=== PATIENT | male | born 1970 | race Caucasian/White ===

== ENCOUNTER 2022-05-29 10:58 | Inpatient (IN) | payer SELFPAY ==
[2022-05-29] MEDS ORDERED: METOPROLOL TAR 25 MG TAB ONE (11:19)
[2022-05-29] MEDS ORDERED: ASPIRIN 81 MG CHEWABLE TABLET ONE (11:19)
[2022-05-29] MEDS ORDERED: METOPROLOL TARTRATE 5 MG/5 ML INJ IV ONE (11:19)
[2022-05-29 11:27] LABS: Absolute Lymphocytes (CBC) 1.3 K/uL (0.7-4.9); Hematocrit 48.9 % (39.6-49.0); Lymphocytes % 12.6 % (15.3-44.8); MCV 91.6 fL (80-100); MPV 10.4 fL (7.6-11.3); RBC Red Blood Cell Count 5.34 M/uL (4.33-5.43)
[2022-05-29 11:32] LABS: Protime INR 1.1
[2022-05-29 12:01] LABS: Albumin 4.1 g/dL (3.4-5.0); Bilirubin Direct 0.2 mg/dL (0-0.2); Bilirubin Total 0.7 mg/dL (0.2-1.0); Magnesium 1.9 mg/dL (1.6-2.4); Potassium 4.1 mmol/L (3.5-5.1); Protein, Total 7.6 g/dL (6.4-8.2)
[2022-05-29 12:07] LABS: Troponin High Sensitivity 7538.1 pg/mL (<58.9)
--- NOTE | 2022-05-29 12:36 | RAD REPORT ---
EXAM DESCRIPTION: RAD - Chest Single View - 05/29/2022 12:18 pm CLINICAL HISTORY: CHEST PAIN Chest pain. COMPARISON: No comparisons FINDINGS: Portable technique limits examination quality. Mild interstitial pulmonary edema suspected. The heart is mildly enlarged in size. No displaced fract ures. IMPRESSION: Mild CHF.
--- NOTE | 2022-05-29 12:57 | ER ---
Nurse's Notes [facility] Name: Nghia Meredith Jr Age: 51 yrs Sex: Male : 1970 Arrival Date: 05/29/2022 Time: 11:00 Bed 4 Private MD: Diagnosis: Subsequent non-ST elevation (NSTEMI) myocardial infarction;Paroxysmal atrial fibrillation-with RVR Presentation: 05/29 11:07 Chief complaint: Patient states: last Sunday started having chest pain and difficulty iw breathing, legs get tired , pain in left side of chest, left shoulder and up neck. Coronavirus screen: At this time, the client does not indicate any symptoms associated with coronavirus-19. Ebola Screen: Patient negative for fever greater than or equal to 101.5 degrees Fahrenheit, and additional compatible Ebola Virus Disease symptoms Patient denies exposure to infectious person. Patient denies travel to an Ebola-affected area in the 21 days before illness onset. No symptoms or risks identified at this time. Onset of symptoms was May 22, 2022. 11:07 Method Of Arrival: Wheelchair iw 11:07 Acuity: LISETTE 2 iw 11:27 Initial Sepsis Screen: Does the patient meet any 2 criteria? HR > 90 bpm. No. Patient's ll1 initial sepsis screen is negative. Does the patient have a suspected source of infection? No. Patient's initial sepsis screen is negative. Risk Assessment: Do you want to hurt yourself or someone else? Patient reports no desire to harm self or others. Historical: - Allergies: 11:14 No Known Allergies; iw - Home Meds: 11:14 BP med [Active]; iw - PMHx: 11:14 Hypertensive disorder; iw - PSHx: 11:14 cardiac stents; iw - Immunization history:: Adult Immunizations not up to date, Client reports having NOT received the Covid vaccine. - Social history:: Smoking status: Patient/guardian denies using tobacco, the patient reports quitting approximately 10 years ago. Screenin:25 [facility] ED Fall Risk Assessment (Adult) Score/Fall Risk Level 0 - 2 = Low Risk ll1 Oriented to surroundings, Maintained a safe environment, Educated pt \T\ family on fall prevention, incl call for assistance when getting out of bed, Hourly rounding (assess needs \T\ fall precautionary measures) done. Abuse screen: Denies threats or abuse. Nutritional screening: No deficits noted. Tuberculosis screening: No symptoms or risk factors identified. Assessment: 11:10 General: Appears uncomfortable, Behavior is calm, cooperative, appropriate for age. ll1 Pain: Complains of pain in chest. Cardiovascular: Reports chest pain, fatigue, palpitations, shortness of breath, Heart tones S1 S2. Respiratory: Reports shortness of breath at rest. GI: Reports. 11:27 Pain: Pain does not radiate. Pain began 6 days. ll1 11:37 Reassessment: Patient and/or family updated on plan of care and expected duration. Pain db level reassessed. PATIENT STATES CHEST PAIN X 1 WEEK THAT WAS WORSE TODAY. LEFT CHEST PAIN. NO HX OF AFIB HR IN 160'S WITH THE CHEST PAIN AND PALPITATIONS. Neuro: Level of Consciousness is awake, alert, obeys commands, Oriented to person, place, time, situation, Appropriate for age Speech is normal. Respiratory: Airway is patent Respiratory effort is even, unlabored, Respiratory pattern is regular, symmetrical. 12:34 Reassessment: No changes from previously documented assessment. Patient and/or family ll1 updated on plan of care and expected duration. Pain level reassessed. Patient is alert, oriented x 3, equal unlabored respirations, skin warm/dry/pink. Patient states feeling better. 13:30 Reassessment: Patient appears in no apparent distress at this time. Patient and/or db family updated on plan of care and expected duration. Pain level reassessed. Patient is alert, oriented x 3, equal unlabored respirations, skin warm/dry/pink. 14:01 Reassessment: Patient appears in no apparent distress at this time. No changes from db previously documented assessment. Patient and/or family updated on plan of care and expected duration. Pain level reassessed. Patient is alert, oriented x 3, equal unlabored respirations, skin warm/dry/pink. 14:30 Reassessment: Patient appears in no apparent distress at this time. No changes from db previously documented assessment. Patient and/or family updated on plan of care and expected duration. Pain level reassessed. Patient is alert, oriented x 3, equal unlabored respirations, skin warm/dry/pink. USING PHONE. HEPARIN STARTED. RN AT BEDSIDE FOR ADDITIONAL IV ACCESS. 15:30 Reassessment: No changes from previously documented assessment. Patient and/or family ll1 updated on plan of care and expected duration. Pain level reassessed. Patient is alert, oriented x 3, equal unlabored respirations, skin warm/dry/pink. 16:15 Reassessment: No changes from previously documented assessment. Patient and/or family ll1 updated on plan of care and expected duration. Pain level reassessed. Patient is alert, oriented x 3, equal unlabored respirations, skin warm/dry/pink. 17:15 Reassessment: No changes from previously documented assessment. Patient and/or family ll1 updated on plan of care and expected duration. Pain level reassessed. Patient is alert, oriented x 3, equal unlabored respirations, skin warm/dry/pink. 17:48 Reassessment: No changes from previously documented assessment. Patient and/or family ll1 updated on plan of care and expected duration. Pain level reassessed. Patient is alert, oriented x 3, equal unlabored respirations, skin warm/dry/pink. Patient states feeling better. 18:41 Reassessment: No changes from previously documented assessment. Patient and/or family ll1 updated on plan of care and expected duration. Pain level reassessed. Patient is alert, oriented x 3, equal unlabored respirations, skin warm/dry/pink. Patient states feeling better. Patient states symptoms have improved. Vital Signs: 11:08 BP 123 / 80; Pulse 145; Resp 18; Temp 96.3; Pulse Ox 100% on R/A; Weight 113.4 kg; iw Height 5 ft. 10 in. (177.80 cm); Pain 10/10; 11:20 Pain 10/10; db 11:26 BP 123 / 99; Pulse 126; Temp 97.9(TE); ll1 11:29 BP 130 / 108; Pulse 111; Resp 15; ll1 11:30 BP 121 / 79; Pulse 113; Resp 18; Pulse Ox 98% ; Pain 4/10; db 12:07 BP 120 / 95; Pulse 102; Resp 18; ll1 12:34 BP 103 / 65; Pulse 92; Resp 16; ll1 13:55 BP 126 / 94; Pulse 100; Resp 24; db 14:32 BP 123 / 100; Pulse 88; Resp 18; ll1 16:00 BP 120 / 80; Pulse 86; Resp 17; Pulse Ox 96% on R/A; Pain 0/10; ll1 17:52 BP 108 / 73; Pulse 88; Resp 17; ll1 11:08 Body Mass Index 35.87 (113.40 kg, 177.80 cm) iw ED Course: 11:00 Patient arrived in ED. rg4 11:08 Triage completed. iw 11:10 Tracee Busch [facility]NP-C [facility]. snw 11:10 Chris Kovacs MD is Attending Physician. snw 11:15 Arm band placed on. iw 11:15 Initial lab(s) drawn, by me, sent to lab. ll1 11:20 Missed attempt(s): 22 gauge in left antecubital area. Bleeding controlled, band aid ll1 applied, catheter tip intact. 11:22 Inserted saline lock: 20 gauge in right antecubital area, using aseptic technique. ll1 Blood collected. 11:25 Xochitl Neff, PADDY is Primary Nurse. ll1 11:26 Patient has correct armband on for positive identification. Bed in low position. Call ll1 light in reach. Side rails up X2. Client placed on continuous cardiac and pulse oximetry monitoring. NIBP monitoring applied. business technology analyst on. 11:26 No provider procedures requiring assistance completed. Patient maintains SpO2 ll1 saturation greater than 95% on room air. 12:20 XRAY Chest (1 view) In Process Unspecified. EDMS 12:56 Jules Duckworth MD is Hospitalizing Provider. snw 14:31 Inserted saline lock: 22 gauge in right hand, using aseptic technique. ll1 14:48 Troponin High Sensitivity Sent. ll1 17:50 Patient admitted, IV remains in place. ll1 Administered Medications: 11:20 Drug: Aspirin Chewable Tablet 324 mg Route: PO; db 17:56 Follow up: Response: No adverse reaction ll1 11:20 Drug: Metoprolol 5 mg Route: IVP; Site: right antecubital; db 11:20 Drug: Metoprolol 12.5 mg Route: PO; db 14:48 Follow up: Response: No adverse reaction ll1 11:25 Drug: Metoprolol 5 mg Route: IVP; Site: right antecubital; db 11:30 Drug: Metoprolol 5 mg Route: IVP; Site: right antecubital; db 14:48 Follow up: Response: No adverse reaction ll1 14:27 Drug: Heparin (DE Drip) 12 units/kg/hr - (HEParin 50025 units, D5W 500 ml) ll1 {Co-Signature: db (Becki Lopes RN).} Route: IV; Rate: calculated rate; Site: right antecubital; 16:45 Follow up: IV Status: Infusion continued upon admission ll1 14:48 Drug: amiodarone 150 mg Volume: 100 ml; Route: IVPB; Infused Over: 10 mins; Site: right ll1 hand; 14:59 Follow up: Response: No adverse reaction; IV Status: Completed infusion; IV Intake: ll1 100ml 14:58 Drug: amiodarone 900 mg, D5W 500 ml Route: IVPB; Rate: 1 mg/min; Site: right hand; ll1 16:45 Follow up: Response: No adverse reaction; IV Status: Infusion continued upon admission ll1 Medication: 11:26 VIS not applicable for this client. ll1 Intake: 14:59 IV: 100ml; Total: 100ml. 1 Outcome: 12:56 Decision to Hospitalize by Provider. snw 17:50 Admitted to Tele accompanied by tech, via stretcher, room 431, with chart, Report ll1 called to PADDY Ríos 17:50 Condition: stable 17:50 Instructed on the need for admit. 18:42 Patient left the ED. 1 Signatures: Dispatcher [employer] Tracee Jeffries, CODING COMPLIANCE AUDITOR-C CODING COMPLIANCE AUDITOR-Csnw Avril Bowman RN RN iw Garcia, Rubi rg4 Xochitl Neff RN RN 1 Becki Lopes RN RN db Becki Lopes RN db Corrections: (The following items were deleted from the chart) 11:15 11:08 BP 123 / 80; Pulse 145bpm; Resp 18bpm; Pulse Ox 100% RA; Temp 96.3F; iw 11:28 11:26 BP 123 / 99; Pulse 126bpm; ll1 ll1
--- NOTE | 2022-05-29 12:57 | EDPHYS ---
Physician Documentation [facility] Name: Nghia Meredith Jr Age: 51 yrs Sex: Male : 1970 Arrival Date: 05/29/2022 Time: 11:00 Bed 4 Private MD: ED Physician Chris Kovacs HPI: 05/29 11:33 This 51 yrs old Male presents to ER via Wheelchair with complaints of Chest Pain, snw Weakness, Arm Pain. 11:33 The patient or guardian reports chest pain that is located primarily in the anterior snw chest wall, left. Onset: 1 week(s) ago, and became persistent 1 weeks ago. Onset: The symptoms/episode began/occurred acutely. The pain radiates to the left arm. Associated signs and symptoms: Pertinent positives:. 11:34 Associated signs and symptoms: Pertinent positives: lightheadedness, palpitations, snw shortness of breath. The chest pain is described as a pressure. Duration: The patient or guardian reports multiple episodes, with no pattern. Modifying factors: The symptoms are alleviated by nothing. the symptoms are aggravated by activity. Severity of pain: At its worst the pain was moderate in the emergency department the pain is unchanged. The patient has not experienced similar symptoms in the past. Saw Dr Keen but lost PCP 2nd to insurance change. Historical: - Allergies: 11:14 No Known Allergies; iw - Home Meds: 11:14 BP med [Active]; iw - PMHx: 11:14 Hypertensive disorder; iw - PSHx: 11:14 cardiac stents; iw - Immunization history:: Adult Immunizations not up to date, Client reports having NOT received the Covid vaccine. - Social history:: Smoking status: Patient/guardian denies using tobacco, the patient reports quitting approximately 10 years ago. ROS: 11:39 Eyes: Negative for injury, pain, redness, and discharge, ENT: Negative for injury, snw pain, and discharge, Neck: Negative for injury, pain, and swelling. 11:39 Abdomen/GI: Negative for abdominal pain, nausea, vomiting, diarrhea, and constipation, Back: Negative for injury and pain, : Negative for injury, bleeding, discharge, and swelling, MS/Extremity: Negative for injury and deformity, Skin: Negative for injury, rash, and discoloration. 11:39 Constitutional: Positive for malaise. 11:39 Cardiovascular: Positive for chest pain, of the left clavicle and anterior aspect of left upper chest and left arm, palpitations. 11:39 Respiratory: Positive for dyspnea on exertion, orthopnea, shortness of breath. 11:39 Neuro: Positive for weakness, insomnia. Exam: 11:33 Constitutional: This is a well developed, well nourished patient who is awake, alert, snw and in no acute distress. Head/Face: Normocephalic, atraumatic. Eyes: Pupils equal round and reactive to light, extra-ocular motions intact. Lids and lashes normal. Conjunctiva and sclera are non-icteric and not injected. Cornea within normal limits. Periorbital areas with no swelling, redness, or edema. ENT: Nares patent. No nasal discharge, no septal abnormalities noted. Tympanic membranes are normal and external auditory canals are clear. Oropharynx with no redness, swelling, or masses, exudates, or evidence of obstruction, uvula midline. Mucous membranes moist. Neck: Trachea midline, no thyromegaly or masses palpated, and no cervical lymphadenopathy. Supple, full range of motion without nuchal rigidity, or vertebral point tenderness. No Meningismus. Chest/axilla: Normal chest wall appearance and motion. Nontender with no deformity. No lesions are appreciated. 11:33 Respiratory: Lungs have equal breath sounds bilaterally, clear to auscultation and percussion. No rales, rhonchi or wheezes noted. No increased work of breathing, no retractions or nasal flaring. Abdomen/GI: Soft, non-tender, with normal bowel sounds. No distension or tympany. No guarding or rebound. No evidence of tenderness throughout. Back: No spinal tenderness. No costovertebral tenderness. Full range of motion. Skin: Warm, dry with normal turgor. Normal color with no rashes, no lesions, and no evidence of cellulitis. MS/ Extremity: Pulses equal, no cyanosis. Neurovascular intact. Full, normal range of motion. Neuro: Awake and alert, GCS 15, oriented to person, place, time, and situation. Cranial nerves II-XII grossly intact. Motor strength 5/5 in all extremities. Sensory grossly intact. Cerebellar exam normal. Normal gait. Psych: Awake, alert, with orientation to person, place and time. Behavior, mood, and affect are within normal limits. 11:33 Cardiovascular: Rate: tachycardic, Rhythm: irregularly irregular, Pulses: no pulse deficits are appreciated, Heart sounds: normal, Edema: is not appreciated. Vital Signs: 11:08 BP 123 / 80; Pulse 145; Resp 18; Temp 96.3; Pulse Ox 100% on R/A; Weight 113.4 kg; iw Height 5 ft. 10 in. (177.80 cm); Pain 10/10; 11:20 Pain 10/10; db 11:26 BP 123 / 99; Pulse 126; Temp 97.9(TE); ll1 11:29 BP 130 / 108; Pulse 111; Resp 15; ll1 11:30 BP 121 / 79; Pulse 113; Resp 18; Pulse Ox 98% ; Pain 4/10; db 12:07 BP 120 / 95; Pulse 102; Resp 18; ll1 12:34 BP 103 / 65; Pulse 92; Resp 16; ll1 13:55 BP 126 / 94; Pulse 100; Resp 24; db 14:32 BP 123 / 100; Pulse 88; Resp 18; ll1 16:00 BP 120 / 80; Pulse 86; Resp 17; Pulse Ox 96% on R/A; Pain 0/10; ll1 17:52 BP 108 / 73; Pulse 88; Resp 17; ll1 11:08 Body Mass Index 35.87 (113.40 kg, 177.80 cm) iw MDM: 11:12 Patient medically screened. snw 11:30 Differential diagnosis: abnormal EKG, acute myocardial infarction, acute pericarditis, snw coronary artery disease congestive heart failure unstable angina. 11:37 HEART Score: History: Highly Suspicious (2), ECG: Non specific repolarization snw disturbance / LBTB / PM (1), Age: > 45 and < 65 years (1), Risk Factors: > or = 3 Risk factors for atherosclerotic disease (2), [Hypertension] [Active Smoker] [Obesity]. The patient was given aspirin in the Emergency Department. Data reviewed: vital signs, nurses notes. Data interpreted: Pulse oximetry: is not applicable for this patient encounter. on room air is 100 %. Interpretation: hypoxia. Test interpretation: by ED physician or midlevel provider: ECG. Response to treatment: the patient's symptoms have mildly improved after treatment. 11:50 Consideration of Admission/Observation Patient was admitted/placed on observation. snw called to clear admit with Dr. Dickinson. He was unavailable presently as he was in a cath. Request placed to hospitalist group. 11:50 Management of patient was discussed with the following: Hospitalist: Andrew Patiño ORACLE MANUFACTURING CONSULTANT for snw Dr. Duckworth. 12:55 Care significantly affected by the following Social Determinants of Health: Poor access snw to healthcare and/or lack of insurance, stopped HTN meds when he lost his job over 1 yr ago, delayed coming to ED 2nd to cost. 14:30 I considered the following discharge prescriptions or medication management in the [facility] emergency department dicussed preferred anti-coag and antiarrhythmic for pt with Dr. Duckworth, Fermín, and Alok. Will go with ASA, heparin, metoprolol, and amiodarone. 16:40 ED course: Dr. Dickinson at bedside discussing cardiac cath tomorrow. [facility] 05/29 11:11 Order name: Basic Metabolic Panel; Complete Time: 12:15 [facility] 05/29 11:11 Order name: CBC with Diff; Complete Time: 11:30 [facility] 05/29 11:11 Order name: LFT's; Complete Time: 12:15 [facility] 05/29 11:11 Order name: Magnesium; Complete Time: 12:15 [facility] 05/29 11:11 Order name: NT PRO-BNP; Complete Time: 12:15 [facility] 05/29 11:11 Order name: PT-INR; Complete Time: 11:32 [facility] 05/29 11:11 Order name: Troponin HS; Complete Time: 12:15 [facility] 05/29 11:30 Order name: TSH; Complete Time: 12:00 [facility] 05/29 13:32 Order name: Troponin High Sensitivity; Complete Time: 17:05 [facility] 05/29 14:01 Order name: SARS RAPID; Complete Time: 14:57 [facility] 05/29 16:25 Order name: Lipid Profile; Complete Time: 16:35 [facility] 05/29 16:40 Order name: Phosphorus; Complete Time: 16:49 [facility] 05/29 16:40 Order name: Creatine Phosphokinase; Complete Time: 16:49 [facility] 05/29 16:40 Order name: T4 Free; Complete Time: 16:49 [facility] 05/29 11:11 Order name: XRAY Chest (1 view); Complete Time: 12:39 snw 05/29 11:11 Order name: EKG; Complete Time: 11:12 snw 05/29 11:11 Order name: Cardiac monitoring; Complete Time: 11:20 snw 05/29 11:11 Order name: EKG - Nurse/Tech; Complete Time: 11:20 snw 05/29 11:11 Order name: IV Saline Lock; Complete Time: 11:20 snw 05/29 11:11 Order name: Labs collected and sent; Complete Time: 11:20 snw 05/29 13:09 Order name: EKG; Complete Time: 13:10 snw 05/29 16:40 Order name: Magnesium; Complete Time: 16:49 [facility] 05/29 16:40 Order name: Thyroid Stimulating Hormone; Complete Time: 16:49 [facility] 05/29 17:56 Order name: Hemoglobin A1c; Complete Time: 17:58 ED[facility] 05/29 11:11 Order name: O2 Per Protocol; Complete Time: 11:20 snw 05/29 11:11 Order name: O2 Sat Monitoring; Complete Time: 11:20 snw 05/29 13:09 Order name: EKG - Nurse/Tech; Complete Time: 13:33 snw 05/29 15:14 Order name: Labs - recollect needed: recollect tropin; Complete Time: 16:36 bd EC:22 Rate is 161 beats/min. Rhythm is irregularly irregular. QRS interval is prolonged. snw Clinical impression: Atrial Fibrillation and with RVR. Administered Medications: 11:20 Drug: Aspirin Chewable Tablet 324 mg Route: PO; db 17:56 Follow up: Response: No adverse reaction ll1 11:20 Drug: Metoprolol 5 mg Route: IVP; Site: right antecubital; db 11:20 Drug: Metoprolol 12.5 mg Route: PO; db 14:48 Follow up: Response: No adverse reaction ll1 11:25 Drug: Metoprolol 5 mg Route: IVP; Site: right antecubital; db 11:30 Drug: Metoprolol 5 mg Route: IVP; Site: right antecubital; db 14:48 Follow up: Response: No adverse reaction ll1 14:27 Drug: Heparin ([place] Drip) 12 units/kg/hr - (HEParin 81482 units, D5W 500 ml) ll1 {Co-Signature: db (Becki Lopes RN).} Route: IV; Rate: calculated rate; Site: right antecubital; 16:45 Follow up: IV Status: Infusion continued upon admission ll1 14:48 Drug: amiodarone 150 mg Volume: 100 ml; Route: IVPB; Infused Over: 10 mins; Site: right ll1 hand; 14:59 Follow up: Response: No adverse reaction; IV Status: Completed infusion; IV Intake: ll1 100ml 14:58 Drug: amiodarone 900 mg, D5W 500 ml Route: IVPB; Rate: 1 mg/min; Site: right hand; ll1 16:45 Follow up: Response: No adverse reaction; IV Status: Infusion continued upon admission ll1 Disposition Summary: 05/29/22 12:56 Hospitalization Ordered Hospitalization Status: Inpatient Admission snw Provider: Jules Duckworth Location: Telemetry/MedSurg (Inpatient) snw Condition: Stable snw Problem: new snw Symptoms: have improved snw Bed/Room Type: Standard snw Room Assignment: 431(05/29/22 17:38) bd Diagnosis - Subsequent non-ST elevation (NSTEMI) myocardial infarction snw - Paroxysmal atrial fibrillation - with RVR snw Forms: - Medication Reconciliation Form snw - SBAR form snw Addendum: 06/02/2022 13:24 Co-signature as Attending Physician, Chris Kovacs MD I agree with the assessment and c bolivar plan of care. Signatures: Dispatcher [employer] EDMS Alka Ferrell Corey, MD MD cha Waters, Shelly, FISH HATCHERY MANAGER-C FISH HATCHERY MANAGER-Csnw Avril Bowman RN RN Xochitl Neff RN RN 1 Becki Lopes RN RN db Danielle Benton RN db Corrections: (The following items were deleted from the chart) 05/29 17:38 12:56 snw bd 19:13 11:37 Counseling: I had a detailed discussion with the patient and/or guardian snw regarding: the historical points, exam findings, and any diagnostic results supporting the discharge/admit diagnosis, the presence of at least one elevated blood pressure reading (>120/80) during this emergency department visit, lab results, radiology results, the need for further work-up and treatment in the hospital, snw
[2022-05-29] MEDS ORDERED: HYDROCODONE/APAP 5/325 MG TAB PO PRN (14:19)
[2022-05-29] MEDS ORDERED: HEPARIN/D5W 25,000 UNIT/500 ML BAG IV ONE (14:19)
[2022-05-29] MEDS ORDERED: ACETAMINOPHEN 325 MG TABLET PO PRN (14:19)
[2022-05-29] MEDS ORDERED: ONDANSETRON 4 MG/2 ML VIAL IV PRN (14:23)
--- NOTE | 2022-05-29 14:31 | P.HP ---
Certification for Inpatient Patient admitted to: Inpatient With expected LOS: >2 Midnights Patient will require the following post-hospital care: None Practitioner: I am a practitioner with admitting privileges, knowledge of patient current condition, hospital course, and medical plan of care. Services: Services provided to patient in accordance with Admission requirements found in Title 42 Section 412.3 of the Code of Federal Regulations Patient History Date of Service: 05/29/22 Reason for admission: Chest pain, SOB History of Present Illness: Patient is a 51-year-old male with a past medical history significant for hypertension, CAD, obesity who presents with complaint of chest pain located in the substernal chest area\left chest wall area that has been ongoing intermittently for the past 1 week. Patient indicated that chest pain radiates to his neck, left shoulder and left arm. Patient rated chest pain as 10/10 in severity and described pain as sharp in quality. Patient reported associated signs and symptoms of shortness of breath, headache, dizziness, diaphoresis, palpitations and generalized malaise. Patient reported that he has had previous episode of chest pain but it normally self resolves after some time. Patient denies any other signs and symptoms. Symptoms are aggravated or relieved by nothing. Patient decided to present to the hospital due to worsening symptoms. Allergies No Known Allergies Allergy (Unverified 05/29/22 14:28) - Past Medical/Surgical History -: CAD with stent -: HTN -: Obesity Past Surgical History: Reviewed- Non-Contributory - Family History Family History: Reviewed- Non-Contributory - Social History Smoking Status: Former smoker Alcohol use: Yes CD- Drugs: No Caffeine use: Yes Place of Residence: Home Review of Systems General: Sweats, Malaise Eyes: Unremarkable ENT: Unremarkable Respiratory: Shortness of Breath Cardiovascular: Chest Pain, Palpitations Gastrointestinal: Unremarkable Genitourinary: Unremarkable Musculoskeletal: Neck Pain, Shoulder Pain, Arm Pain Integumentary: Unremarkable Neurological: Other (Headache, dizziness), Unremarkable Lymphatics: Unremarkable Physical Examination - Physical Exam General: Alert, In no apparent distress, Oriented x3, Cooperative HEENT: Atraumatic, PERRLA, Mucous membr. moist/pink, EOMI, Sclerae nonicteric Neck: Supple, 2+ carotid pulse no bruit, No LAD, Without JVD or thyroid abnormality Respiratory: Diminished Cardiovascular: No edema, No murmurs, Irregular heart rate/rhythm Capillary refill: <2 Seconds Gastrointestinal: Normal bowel sounds, Soft and benign, No tenderness Musculoskeletal: No clubbing, No swelling, No contractures Integumentary: No rashes, No significant lesion Neurological: Normal speech, Normal tone, Normal affect Lymphatics: No axilla or inguinal lymphadenopathy - Studies Laboratory Data (last 24 hrs) 05/29/22 11:15: PT 12.1, INR 1.10 05/29/22 11:15: WBC 10.40, Hgb 17.0, Hct 48.9, Plt Count 220 05/29/22 11:15: Sodium 137, Potassium 4.1, BUN 21 H, Creatinine 1.29, Glucose 120 H, Magnesium 1.9, Total Bilirubin 0.7, AST 23, ALT 43, Alkaline Phosphatase 84 Assessment and Plan - Plan --NSTEMI. Will trend serial troponins--currently elevated. Patient started on heparin drip. Echocardiogram pending to assess LV\valvular function and wall motion. Cardiology consulted. Patient placed on aspirin, low-dose beta-duane and statin. Beck Operator plans a left heart cath in a.m. Will await further recommendation from carbon sequestration plant engineer. --A. fib with RVR. Patient given amiodarone and metoprolol IV in the ER. Rate trending down but still uncontrolled. Telemetry to monitor for any malignant arrhythmia. Continue heparin drip. Further management per carbon sequestration plant engineer. --Hyperlipidemia. Continue statin. --Hypertension. Stable. We will manage BP with labetalol as needed. --Elevated BNP--2333. Patient given a one-time dose of Lasix. Echocardiogram pending. Further management per carbon sequestration plant engineer. --History of CAD with stents. Continue aspirin, statin and heparin drip. --Obesity. Likely secondary to excess calories intake. Patient counseled on weight reduction, diet and exercise therapy. --CKD 2. Baseline functions unknown. We will continue to monitor renal functions. --Headache. Tylenol as needed. -- DVT prophylaxis with heparin drip. Discharge Plan: Home Plan to discharge in: Greater than 2 days - Advance Directives Does patient have a Living Will: No Does patient have a Durable POA for Healthcare: No - Code Status/Comfort Care Code Status Assessed: Yes Physician Review: Patient Assessed, Agree with Above Assessment and Plan Critical Care: No
[2022-05-29] MEDS ORDERED: D5W 100 ML IV ONE (14:38)
[2022-05-29] MEDS ORDERED: AMIODARONE HCL 150 MG/3 ML INJ IV ONE (14:38)
[2022-05-29] MEDS ORDERED: AMIODARONE IN DEXTROSE,ISO-OSM 360 MG/200 ML BAG IV ONE (14:38)
[2022-05-29 14:56] LABS: SARS-CoV-2 Antigen Rapid Res Negative (Negative)
[2022-05-29] MEDS ORDERED: HEPARIN/D5W 25,000 UNIT/500 ML BAG IV SCH (15:00)
[2022-05-29 16:22] VITALS: BMI 35.9
[2022-05-29 16:40] LABS: Magnesium 1.9 mg/dL (1.6-2.4); Phosphorus 3.4 mg/dL (2.5-4.9); Thyroid Stimulating Hormone 0.689 uIU/mL (0.358-3.740)
[2022-05-29] MEDS ORDERED: LABETALOL 20 MG/4ML SYRINGE IV PRN (17:29)
[2022-05-29] MEDS ORDERED: FUROSEMIDE 20 MG/ 2ML VIAL IV ONE (18:00)
--- NOTE | 2022-05-29 20:45 | CON ---
Date of Consultation: 05/29/2022 Reason For Consultation: Elevated troponin and atrial fibrillation with rapid ventricular response. History Of Present Illness: This 51-year-old male with known history of coronary artery disease stat us post stent placement in the past comes in with palpitations, chest pain, and shortness of breath. His symptoms have been going on for a week and the chest pain was severe, 10/10. When he came in, jeff azul was in atrial fibrillation with rapid ventricular response. After slowing down his heart rate, his chest pain has improved significantly and he feels better now and chest pain free. Past Medical History: Coronary artery disease and hypertension. Medications: Refer to reconciliation sheet for detailed list. Allergies: NO KNOWN DRUG ALLERGIES. Family History: No premature coronary artery disease or cancer. Social History: He is an ex-smoker. Does not drink or use any drugs. Review of Systems: All systems reviewed and they were negative except for mentioned in HPI. Physical Examination: Vital Signs: Reviewed. Head And Neck: Pupils are equal and reactive to light. Intact eye movements. No JVD. No cervical lymphadenopathy. Neck is supple. Thyroid is not enlarged. Lungs: Clear to auscultation bilaterally. No rhonchi, wheezing, or crackles. No accessory muscle u se. Heart: Irregularly irregular. No extra sounds. Abdomen: Soft, nontender. Bowel sounds positive. No organomegaly. No masses or hernia. No rigidi ty or rebound. Extremities: No edema, clubbing, or cyanosis. Intact pulses. Skin: No rash. Neurologic: Alert, awake, and oriented x3. No acute focal deficits appreciated. Investigations: Troponin first one was 7538, second one was 7791. NT-proBNP is 2333. Assessment/recommendation: 1.Atrial fibrillation with rapid ventricular response. Started on IV amiodarone drip, load with 150 mg over 10 minutes and then 1 mg/minute for 6 hours and then 0.5 mg/minute for 16 hours. Continue m etoprolol 12.5 mg twice a day by mouth. 2.Non-ST elevation myocardial infarction. Load with aspirin and IV heparin. The patient is chest p ain free now. We will keep him n.p.o. past midnight for coronary angiogram in the morning and contin ue Lipitor. SR/MODL Voice ID: [id number] Report ID: [id number]
[2022-05-29] MEDS: ATORVASTATIN 40 MG TAB PO SCH (21:34)
[2022-05-29] MEDS: METOPROLOL TAR 25 MG TAB PO SCH (21:35)
[2022-05-30 04:14] LABS: Absolute Lymphocytes (CBC) 1.8 K/uL (0.7-4.9); Lymphocytes % 19.9 % (15.3-44.8); MCV 91.3 fL (80-100); MPV 10.6 fL (7.6-11.3); RBC Red Blood Cell Count 5.15 M/uL (4.33-5.43)
[2022-05-30 04:25] LABS: Potassium 3.4 mmol/L (3.5-5.1)
[2022-05-30] MEDS: METOPROLOL TAR 25 MG TAB PO SCH ×2 (05:10→18:00)
[2022-05-30] MEDS: ASPIRIN 81 MG CHEWABLE TABLET PO SCH (07:47)
[2022-05-30] MEDS: FUROSEMIDE 20 MG/ 2ML VIAL IV SCH ×2 (08:04→21:26)
[2022-05-30] MEDS ORDERED: POTASSIUM CL SA 10 MEQ TAB PO ONE (09:00)
[2022-05-30] MEDS ORDERED: LIDOCAINE 1% MPF 30 ML VIAL ONE (11:07)
[2022-05-30] MEDS ORDERED: HEPA 1000U/500MLS 2,000 UNIT/1,000 ML BAG IV ONE (11:07)
[2022-05-30] MEDS ORDERED: TICAGRELOR 90 MG TABLET PO ONE (14:01)
[2022-05-30] MEDS ORDERED: CLOPIDOGREL 75 MG TABLET ONE (14:01)
[2022-05-30] MEDS ORDERED: ASPIRIN 325 MG TAB ONE (14:01)
[2022-05-30] MEDS ORDERED: HEPARIN 10,000 UNIT/10 ML VIAL IV ONE ×2 (14:01→15:14)
[2022-05-30] MEDS ORDERED: HEPARIN 5000 UNIT/ML 1 ML VIAL ONE (14:01)
[2022-05-30] MEDS ORDERED: VERAPAMIL HCL 10 MG/4 ML VIAL IV ONE (14:01)
[2022-05-30] MEDS ORDERED: ATROPINE SULF 1 MG/10 ML SYR IV ONE (14:02)
[2022-05-30] MEDS ORDERED: FENTANYL CITR 100 MCG/2 ML ONE (14:03)
[2022-05-30] MEDS ORDERED: MIDAZOLAM HCL 2 MG/2 ML INJ ONE (14:03)
[2022-05-30] MEDS ORDERED: NA CHLORIDE 0.9% 500 ML ONE (14:17)
--- NOTE | 2022-05-30 14:24 | EKG ---
Test Date: 2022-05-29 Test Time: 13:29:47 Maintenance And Operations Supervisor: ELISHA MEASUREMENT RESULTS: Intervals: Rate: 98 MS: QRSD: 128 QT: 344 QTc: 439 Manderson: P: MS: QRS: 60 T: 208 INTERPRETIVE STATEMENTS: Atrial fibrillation Nonspecific intraventricular block T wave abnormality, consider inferolateral ischemia Abnormal ECG Compared to ECG 05/29/2022 11:23:37 T-wave abnormality now present ST (T wave) deviation no longer present Possible ischemia still present Electronically Signed On 05-30-22 14:22:23 SALES AND RETAIL MANAGEMENT RECRUITER by Marco A Dickinson
--- NOTE | 2022-05-30 14:25 | EKG ---
Test Date: 2022-05-29 Test Time: 11:23:37 Machining Manager: ZOILAW MEASUREMENT RESULTS: Intervals: Rate: 141 DC: QRSD: 114 QT: 332 QTc: 508 Toponas: P: DC: QRS: 33 T: 167 INTERPRETIVE STATEMENTS: Atrial fibrillation with rapid ventricular response ST & T wave abnormality, consider inferolateral ischemia Abnormal ECG No previous ECG available for comparison Electronically Signed On 05-30-22 14:22:50 DRIVING SCHOOL INSTRUCTOR by Marco A Dickinson
[2022-05-30] MEDS ORDERED: REGADENOSON 0.4 MG/5 ML SYR IV ONE (15:09)
[2022-05-30] MEDS ORDERED: AMIODARONE HCL 150 MG in D5W 100 ML IV STA (15:31)
[2022-05-30] MEDS ORDERED: AMIODARONE HCL 900 MG in Dextrose 5%-Water 482 ML IV SCH (16:00)
--- NOTE | 2022-05-30 16:19 | PN ---
Date of Progress Note: 05/30/2022 Subjective: Seen by bedside. Doing clinically well. No further chest pain. Review of Systems: No chest pain, shortness of breath, orthopnea, cough, nausea, vomiting, diarrhea. All other systems reviewed and they were negative. Physical Examination: Vital Signs: Reviewed. Head and Neck: Pupils are equal, reactive to light. Intact eye movements. No JVD. No cervical lym phadenopathy. Neck is supple. Thyroid is not enlarged. Lungs: Clear to auscultation bilaterally. No rhonchi, wheezing, or crackles. No accessory muscle u se. Heart: Regular rate and rhythm. No extra sounds. Abdomen: Soft, nontender. Bowel sounds positive. No organomegaly. No masses or hernia. No rigidi ty or rebound. Extremities: No clubbing or cyanosis. Intact pulses. Skin: No rash. Neurologic: Alert, awake, oriented x3. No acute focal deficits appreciated. Investigations: BUN 27, creatinine 1.2. Troponin 8722. Assessment And Recommendations: 1.Non-ST elevation myocardial infarction. The patient is n.p.o., plan for coronary angiogram today and percutaneous coronary intervention as needed. 2.Acute heart failure. Continue Lasix. 3.Atrial fibrillation. Continue amiodarone load, then switch him to oral, and increase metoprolol to 25 mg twice a day and we will start him on anticoagulation post hear t cath. SR/MODL Voice ID: [id number] Report ID: [id number]
--- NOTE | 2022-05-30 16:37 | OP ---
Surgeon: BHARATH HOLCOMB Procedures Performed: 1.Selective coronary angiogram. 2.Left heart catheterization. 3.PCI of severe mid left circumflex 99% stenosis, which is a culprit for the ID. I used 2.5 x 12 mm Synergy drug-eluting stent. Access: Right radial artery 6-Paraguayan closed with TR band. Complications: None. Bleeding: Less than 10 mL. Anesthesia: Total sedation time was 45 minutes. Used fentanyl and Versed. Description Of Procedure: After risks, benefits, and alternatives were explained, the patient agreed to proceed and signed informed consent. The patient was brought into the cardiac catheterization la boratory, prepped and draped in the usual sterile fashion. Then, I accessed right radial artery usin g pediatric micropuncture kit, placed 6-Par[place]ayan Slender sheath, and then took a 5-[place]ayan [place] 4.0 cat heter into the aortic root over a J-wire, engaged left main and right coronary artery, took standard views and then catheter was pushed over the wire into the LV, measured the LVEDP and pullback did not record any gradient. Then, I exchanged for a 6-[place] EBU3.5 guide, engaged the left main, gave sys temic heparin to assure ACT level above 250 and gave 600 mg of Plavix. The patient already received aspirin today. Then, I took a short Run-Through wire into the left circumflex passing the area of st enosis and the lesion was pre-dilated and expanded very well. Then, I used 2.5 x 12 mm Synergy drug- eluting stent with excellent angiographic results. Then, I removed the wire and the guide and sheath , placed TR band with good hemostasis. Findings: 1.Left main; large and normal. 2.LAD; large vessel with patent mid LAD stent with very mild ISR and diagonal branches have luminal irregularities. 3.Left circumflex; large and dominant and in the midportion, there is 99% stenosis, which is a culpr it for ID, status post successful PCI as above. Then, there are some luminal irregularities and diff use 20% to 30% stenosis and supplies the inferior wall, and then the OM1 branch has proximal 30% sten osis and also supplies the inferior wall as well. 4.RCA; very small, non-dominant and has proximal 80% stenosis, but it is about 1 to 1.5 mm vessel. 5.Elevated LVEDP between 15 and 20 mmHg. Conclusion: 1.Severe mid left circumflex stenosis, which is the culprit of the ID, status post successful PCI as above. 2.Patent mid LAD stent. 3.Mild coronary artery disease elsewhere with the exception of the RCA; however, it is very small ve ssel, nondominant, so it was left to medical management. 4.Elevated LVEDP. Recommendations: 1.Aspirin, Plavix, and statin. 2.Diuresis. SR/MODL Voice ID: [id number] Report ID: [id number]
--- NOTE | 2022-05-30 17:01 | P.PN ---
Subjective Date of Service: 05/30/22 Chief Complaint: Chest pain, SOB Patient has no complaint. Denies any chest pain. Physical Examination - Vital Signs Temperature: 98 F Blood Pressure: 141/98 Pulse: 109 Respirations: 15 Pulse Ox (%): 97 Assessment And Plan - Current Problems (Diagnosis) (1) NSTEMI (non-ST elevated myocardial infarction) Current Visit: Yes Status: Acute (2) Chest pain Current Visit: Yes Status: Acute (3) Atrial fibrillation with RVR Current Visit: Yes Status: Acute (4) Hyperlipidemia Current Visit: Yes Status: Acute (5) Hypertension Current Visit: Yes Status: Acute (6) History of coronary artery disease Current Visit: Yes Status: Acute - Plan Physical Exam General: Alert, In no apparent distress, Oriented x3, Neck: Supple, no elevated JVD. Respiratory: Diminished, clear to auscultation bilaterally Cardiovascular: No edema, No murmurs, Irregular heart rate/rhythm Gastrointestinal: Normal bowel sounds, Soft and benign, No tenderness Musculoskeletal: No swelling. Integumentary: No rashes Neurological: Normal speech, no focal motor deficit. Plan: Patient seen by cardiology. Dr. Dickinson input appreciated Status post cardiac catheterization. Patient noted to have LCA occlusion which was stented. Aspirin, Plavix, statin, beta-duane. Continue amiodarone drip per cardiology. He is also on heparin drip. Will need to transition to Eliquis. Cardiology to follow.
[2022-05-30] MEDS: ATORVASTATIN 40 MG TAB PO SCH (21:26)
[2022-05-31 04:05] LABS: Potassium 3.4 mmol/L (3.5-5.1)
[2022-05-31] MEDS ORDERED: POTASSIUM 25 MEQ EFFERV TAB PO ONE (04:55)
[2022-05-31] MEDS: METOPROLOL TAR 25 MG TAB PO SCH (05:54)
[2022-05-31 06:26] VITALS: O2SAT 96
--- NOTE | 2022-05-31 06:53 | ECHO ---
HEIGHT: 5 ft 10 in WEIGHT: 250 lb 0 oz DATE OF STUDY: 05/30/[address]: Argelia Patiño 2-DIMENSIONAL: YES M.MODE: YES DOPPLER: YES COLOR FLOW: YES TDS: PORTABLE: YES DEFINITY: BUBBLE STUDY: DIAGNOSIS: NON ST ELEVATION MYOCARDIAL INFARCTION/ ATRIAL FIBRILLATION WITH RAPID VENTRICULAR RESPONSE CARDIAC HISTORY: CATHERIZATION: SURGERY: PROSTHETIC VALVE: PACEMAKER: MEASUREMENTS (cm) DIASTOLIC (NORMALS) SYSTOLIC (NORMALS) IVSd 1.6 (0.6-1.2) LA Diam 4.3 (1.9-4.0) LVEF 49% LVIDd 5.2 (3.5-5.7) LVIDs 3.9 (2.0-3.5) %FS 25% LVPWd 1.7 (0.6-1.2) Ao Diam 3.1 (2.0-3.7) 2 DIMENSIONAL ASSESSMENT: RIGHT ATRIUM: NORMAL LEFT ATRIUM: ENLARGED RIGHT VENTRICLE: NORMAL LEFT VENTRICLE: ATRIAL FIBRILLATION TRICUSPID VALVE: NORMAL MITRAL VALVE: MILD MITRAL REGURGITATION PULMONIC VALVE: NORMAL AORTIC VALVE: NORMAL PERICARDIAL EFFUSION: NONE AORTIC ROOT: NORMAL LEFT VENTRICULAR WALL MOTION: MILD GLOBAL HYPOKINESIS DUE TO ATRIAL FIBRILLATION DOPPLER/COLOR FLOW: MILD MITRAL REGURGITATION COMMENTS: 1. MILDLY DEPRESSED LEFT VENTRICULAR EJECTION FRACTION 45-50% 2. MILD GLOBAL HYPOKINESIS 3. MILD MITRAL REGURGITATION 4. LEFT ATRIAL ENLARGEMENT TECHNOLOGIST: MITCHELL ARMSTRONG
[2022-05-31] MEDS ORDERED: CLOPIDOGREL 75 MG TABLET PO SCH (09:00)
[2022-05-31] MEDS: ASPIRIN 81 MG CHEWABLE TABLET PO SCH (09:08)
[2022-05-31] MEDS: FUROSEMIDE 20 MG/ 2ML VIAL IV SCH (09:08)
[2022-05-31 15:49] VITALS: BP 148/89; TEMP 97.7
--- NOTE | 2022-05-31 16:53 | P.DS ---
Admission Date: 05/29/22 Discharge Date: 05/31/22 Disposition: ROUTINE DISCHARGE Discharge Condition: FAIR Reason for Admission: Chest pain, SOB - Problems (1) NSTEMI (non-ST elevated myocardial infarction) Current Visit: Yes Status: Acute (2) Chest pain Current Visit: Yes Status: Acute (3) Atrial fibrillation with RVR Current Visit: Yes Status: Acute (4) Hyperlipidemia Current Visit: Yes Status: Acute (5) Hypertension Current Visit: Yes Status: Acute (6) History of coronary artery disease Current Visit: Yes Status: Acute Brief History of Present Illness: Patient is a 51-year-old male with a past medical history significant for hypertension, CAD, obesity who presented with complaint of chest pain located in the substernal chest area\left chest wall area that has been ongoing intermittently for 1 week. Patient indicated that the chest pain radiates to his neck, left shoulder and left arm. Patient rated chest pain as 10/10 in severity and described pain as sharp in quality. Patient reported associated signs and symptoms of shortness of breath, headache, dizziness, diaphoresis, palpitations and generalized malaise. Patient reported that he has had previous episode of chest pain but it normally self resolves after some time. Initial troponin in the ED was elevated to 7000. Patient was diagnosed with NSTEMI and admitted for further management. Hospital Course: Patient was admitted to the medical floor and started on heparin drip. Troponin trended up to 8000. Patient was seen and evaluated by cardiology Dr. Dickinson. He was noted to be in atrial fibrillation for which he received a bolus of IV amiodarone and placed on amiodarone drip. Dr. Vazquez performed cardiac catheterization and his LCA was stented. Patient was monitored for another 24 hours post cardiac cath with heparin drip and amiodarone drip. He has been asymptomatic postcardiac cath. Patient evaluated by cardiology and deemed stable for discharge. He is discharged with oral amiodarone, metoprolol aspirin, Plavix and Eliquis. He will take aspirin Plavix and Eliquis for 1 month followed by Eliquis and Plavix per cardiology recommendation. Vital Signs/Physical Exam: Temp Pulse Resp BP Pulse Ox 97.7 F 53 16 148/89 H 98 05/31/22 15:48 05/31/22 15:48 05/31/22 15:48 05/31/22 15:48 05/31/22 15:48 General: Alert, In no apparent distress, Oriented x3 HEENT: Mucous membr. moist/pink Neck: Supple, JVD not distended Respiratory: Clear to auscultation bilaterally, Normal air movement Cardiovascular: No edema, Normal S1 S2, Irregular heart rate/rhythm Gastrointestinal: Normal bowel sounds, No tenderness Musculoskeletal: No swelling Integumentary: No rashes Neurological: Normal strength at 5/5 x4 extr Laboratory Data at Discharge: WBC 9.20 K/uL (4.3-10.9) 05/30/22 03:38 Hgb 16.2 g/dL (13.6-17.9) 05/30/22 03:38 Hct 47.0 % (39.6-49.0) 05/30/22 03:38 Plt Count 180 K/uL (152-406) 05/30/22 03:38 PT 12.1 SECONDS (9.5-12.5) 05/29/22 11:15 INR 1.10 05/29/22 11:15 APTT Cancelled 05/30/22 14:00 Sodium 140 mmol/L (136-145) 05/31/22 03:33 Potassium Cancelled 05/31/22 Unknown BUN 26 mg/dL (7-18) H 05/31/22 03:33 Creatinine 1.28 mg/dL (0.70-1.30) 05/31/22 03:33 Glucose 119 mg/dL (74-106) H 05/31/22 03:33 Phosphorus 3.4 mg/dL (2.5-4.9) 05/29/22 15:43 Magnesium 1.9 mg/dL (1.6-2.4) 05/29/22 15:43 Total Bilirubin 0.7 mg/dL (0.2-1.0) 05/29/22 11:15 AST 23 U/L (15-37) 05/29/22 11:15 ALT 43 U/L (16-61) 05/29/22 11:15 Alkaline Phosphatase 84 U/L (45-117) 05/29/22 11:15 Triglycerides 166 mg/dL (<150) H 05/29/22 15:43 Cholesterol 213 mg/dL (<200) H 05/29/22 15:43 HDL Cholesterol 31 mg/dL (40-60) L 05/29/22 15:43 Cholesterol/HDL Ratio 6.87 05/29/22 15:43 Home Medications: Amiodarone HCl [Cordarone*] 200 mg PO DAILY #30 tab 05/31/22 Apixaban [Eliquis] 5 mg PO BID #60 tab 05/31/22 Aspirin Chewable [Aspirin Chewable*] 81 mg PO DAILY #30 tab.chew 05/31/22 Atorvastatin Calcium [Lipitor] 40 mg PO BEDTIME #30 tab 05/31/22 Clopidogrel Bisulfate [Plavix*] 75 mg PO DAILY #30 tab 05/31/22 Metoprolol Tartrate [Lopressor*] 25 mg PO BID #60 tab 05/31/22 New Medications: Aspirin Chewable [Aspirin Chewable*] 81 mg PO DAILY #30 tab.chew Amiodarone HCl [Cordarone*] 200 mg PO DAILY #30 tab Apixaban [Eliquis] 5 mg PO BID #60 tab Atorvastatin Calcium [Lipitor] 40 mg PO BEDTIME #30 tab Metoprolol Tartrate [Lopressor*] 25 mg PO BID #60 tab Clopidogrel Bisulfate [Plavix*] 75 mg PO DAILY #30 tab Diet: AHA Activity: Ad kristy Followup: NONE,NONE [Primary Care Provider] - Marco A Dickinson MD [ACTIVE - CAN ADMIT] - 1 Week Time spent managing pt's care (in minutes): 34
== END 2022-05-31 17:43 | disposition home or self-care (01) | DRG 246 ==
LOC: ER 10:58 → ERHOLD 14:16 → 4TH 17:49
PROVIDERS: ADMIT Hospitalist; ATTEND Internal Medicine
PROC: 027034Z Dilation of Coronary Artery, One Artery with Drug-eluting Intraluminal Device, Percutaneous Approach (ICD-10-PCS; principal; 2022-05-30)
PROC: 4A023N7 Measurement of Cardiac Sampling and Pressure, Left Heart, Percutaneous Approach (ICD-10-PCS; 2022-05-30)
PROC: B2111ZZ Fluoroscopy of Multiple Coronary Arteries using Low Osmolar Contrast (ICD-10-PCS; 2022-05-30)
DX: I21.4 Non-ST elevation (NSTEMI) myocardial infarction (principal); I50.33 Acute on chronic diastolic (congestive) heart failure; I13.0 Hypertensive heart and chronic kidney disease with heart failure and stage 1 through stage 4 chronic kidney disease, or unspecified chronic kidney disease; N18.2 Chronic kidney disease, stage 2 (mild); I48.0 Paroxysmal atrial fibrillation; E78.5 Hyperlipidemia, unspecified; E66.09 Other obesity due to excess calories; I25.10 Atherosclerotic heart disease of native coronary artery without angina pectoris; R51.9 Headache, unspecified; Z95.5 Presence of coronary angioplasty implant and graft; Z79.01 Long term (current) use of anticoagulants; Z68.35 Body mass index [BMI] 35.0-35.9, adult; Z79.02 Long term (current) use of antithrombotics/antiplatelets; Z79.899 Other long term (current) drug therapy; Z28.310 Unvaccinated for COVID-19; Z87.891 Personal history of nicotine dependence; Z20.822 Contact with and (suspected) exposure to COVID-19
CPT/HCPCS: 36415; 71045; 80048; 80061; 80076; 82550; 83036; 83735; 83880; 84100; 84439; 84443; 84484; 85025; 85347; 85610; 85730; 87811; 92928; 93005; 93306; 93458; 99285; C1725; C1893; J0282; J0461; J1644; J1940; J2001; J2250; J2785; J3010; J7040; J7060; Q9966

== ENCOUNTER 2022-06-12 13:40 | Inpatient (IN) | payer SELFPAY ==
[2022-06-12 14:24] LABS: Absolute Lymphocytes (CBC) 1.2 K/uL (0.7-4.9); Hematocrit 43.2 % (39.6-49.0); Lymphocytes % 11.5 % (15.3-44.8); MCV 91.6 fL (80-100); MPV 9.6 fL (7.6-11.3); RBC Red Blood Cell Count 4.72 M/uL (4.33-5.43)
[2022-06-12] MEDS ORDERED: METOPROLOL TARTRATE 5 MG/5 ML INJ IV ONE ×2 (14:37→14:44)
[2022-06-12 14:42] LABS: Potassium 4.3 mmol/L (3.5-5.1)
--- NOTE | 2022-06-12 14:43 | RAD REPORT ---
EXAM DESCRIPTION: RAD - Chest Single View - 06/12/2022 2:36 pm CLINICAL HISTORY: shortness of breath COMPARISON: Portable 05/29/2022 TECHNIQUE: AP portable chest image was obtained 06/12/2022 2:36 pm . FINDINGS: Lung palmer are slightly underinflated compared to the prior study. Interstitial markings are most pronounced in the mid and lower lung palmer. Cardiomegaly is present with central vascular e ngorgement. Trachea is in midline. No pneumothorax. Minimal pleural effusions are suspected. No acute bony abnormality seen. No acute aortic findings suspected. IMPRESSION: Moderate CHF/volume overload pattern.
[2022-06-12 15:00] LABS: Troponin High Sensitivity 339.3 pg/mL (<58.9)
--- NOTE | 2022-06-12 15:08 | EDPHYS ---
Physician Documentation [facility] Name: Nghia Meredith Jr Age: 51 yrs Sex: Male : 1970 Arrival Date: 06/12/2022 Time: 13:43 Bed 24 Private MD: ED Physician Figueroa Garrison HPI: 06/12 19:10 This 51 yrs old Male presents to ER via Ambulatory with complaints of Breathing ms3 Difficulty. 19:10 51-year-old male with past medical history of hypertension, coronary artery disease, ms3 peptic ulcer disease presents for shortness of breath that began on Sunday. Patient denies pain, fevers, chills, cough. Of note patient states he recently had a stent placed at this hospital.. Historical: - Allergies: 13:53 No Known Allergies; ss - PMHx: 13:53 Hypertensive disorder; Hypertensive disorder; CAD; PUD; ss - PSHx: 13:53 cardiac stents; ss - Immunization history:: Client reports having NOT received the Covid vaccine. - Social history:: Smoking status: Patient denies any tobacco usage or history of. ROS: 19:10 Constitutional: Negative for fever, and chills. Neck: Negative for injury, pain, and ms3 swelling, Cardiovascular: Negative for chest pain, and palpitations. 19:10 Back: Negative for injury and pain, Skin: Negative for injury, rash, and discoloration, Neuro: Negative for headache, weakness, numbness, tingling. 19:10 Respiratory: Positive for shortness of breath. 19:10 All other systems are negative. Exam: 14:20 ECG was reviewed by the Attending Physician. ms3 19:10 Constitutional: This is a well developed, well nourished patient who is awake, alert, ms3 and in no acute distress. Head/Face: Normocephalic, atraumatic. Neck: Trachea midline, no cervical lymphadenopathy. Supple, full range of motion without nuchal rigidity, or vertebral point tenderness. No Meningismus. Chest/axilla: Normal chest wall appearance and motion. Nontender with no deformity. Respiratory: Lungs have equal breath sounds bilaterally, clear to auscultation and percussion. No rales, rhonchi or wheezes noted. No increased work of breathing, no retractions or nasal flaring. 19:10 Cardiovascular: Rate: tachycardic, Rhythm: irregularly irregular, Pulses: no pulse deficits are appreciated. Vital Signs: 13:51 BP 179 / 139; Pulse 136; Resp 20; Temp 97.5(TE); Pulse Ox 98% on R/A; Weight 113.4 kg; ss Height 5 ft. 10 in. (177.80 cm); Pain 0/10; 14:36 BP 189 / 143; Pulse 137; jh5 14:42 BP 156 / 119; Pulse 114; jh5 14:48 BP 161 / 110; Pulse 108; jh5 16:41 BP 183 / 115; Pulse 92; jh5 13:51 Body Mass Index 35.87 (113.40 kg, 177.80 cm) ss MDM: 14:10 Patient medically screened. ms3 15:07 ED course: Discussed case with Dr Dickinson. Would like 1 mg/kg Lovenox, and patient ms3 started on Sotalol 80 mg BID. Troponin likely elevated 2/[address] case [address] Trujillo and he accepts inpatient admission.. 19:10 Differential diagnosis: Anemia Myocardial Infarction pulmonary edema, Pulmonary ms3 Embolism. Data reviewed: vital signs, nurses notes, lab test result(s), EKG, radiologic studies, and as a result, I will admit patient. Consideration of Admission/Observation Patient was admitted/placed on observation. Management of patient was discussed with the following: Hospitalist: . I considered the following discharge prescriptions or medication management in the emergency department Medications were administered in the Emergency Department. See MAR. Independent interpretation of the following test(s) in the Emergency Department EKG: See my EKG interpretation above hall monitor: rate is 127 beats/min, Rhythm is atrial fibrillation, with no ectopy, Interpretation: atrial fibrillation, tachycardia. Care significantly affected by the following chronic conditions: Hypertension. Counseling: I had a detailed discussion with the patient and/or guardian regarding: the historical points, exam findings, and any diagnostic results supporting the discharge/admit diagnosis, lab results, radiology results, the need for further work-up and treatment in the hospital. 06/12 14:11 Order name: Basic Metabolic Panel; Complete Time: 15: ms3 06/12 14:11 Order name: CBC with Diff; Complete Time: 15: ms3 06/12 14:11 Order name: NT PRO-BNP; Complete Time: 15: ms3 06/12 14:11 Order name: Troponin HS; Complete Time: 15:01 ms3 06/12 17:10 Order name: SARS-COV-2 Antigen Rapid bd 06/12 17:45 Order name: SARS-COV-2 Antigen Rapid EDMS 06/12 17:59 Order name: Lipid Profile EDMS 06/12 18:07 Order name: Phosphorus EDMS 06/12 18:07 Order name: T4 Free EDMS 06/12 18:07 Order name: Magnesium EDMS 06/12 18:07 Order name: Thyroid Stimulating Hormone EDMS 06/12 18:10 Order name: Hemoglobin A1c EDMS 06/12 22:02 Order name: Troponin High Sensitivity EDMS 06/13 03:57 Order name: CBC with Automated Diff EDMS 06/12 14:11 Order name: XRAY Chest (1 view); Complete Time: 15:01 ms3 06/12 14:11 Order name: EKG; Complete Time: 14:11 ms3 06/12 14:11 Order name: Cardiac monitoring; Complete Time: 14:32 ms3 06/12 14:11 Order name: EKG - Nurse/Tech; Complete Time: 14:32 ms3 06/12 14:11 Order name: IV Saline Lock; Complete Time: 14:32 ms3 06/12 14:11 Order name: Labs collected and sent; Complete Time: 14:32 ms3 06/12 14:11 Order name: O2 Per Protocol; Complete Time: 14:32 ms3 06/12 14:11 Order name: O2 Sat Monitoring; Complete Time: 14:32 ms3 06/12 14:11 Order name: CT Chest For PE Angio; Complete Time: 15:27 ms3 06/12 17:01 Order name: CONS Physician Consult EDCT 06/13 04:11 Order name: Basic Metabolic Panel EDMS 06/13 04:11 Order name: NT PRO-BNP EDMS 06/13 04:11 Order name: Troponin High Sensitivity EDMS EC:20 Rate is 127 beats/min. Rhythm is irregularly irregular. Right axis deviation noted. QRS ms3 interval is normal. Clinical impression: Atrial Fibrillation. Interpreted by me. Reviewed by me. Administered Medications: 14:36 Drug: Metoprolol 5 mg {Note: dose 1 1436.} Route: IVP; Site: right antecubital; jh5 14:42 Drug: Metoprolol 5 mg {Note: second dose 1442.} Route: IVP; Site: right antecubital; [facility] 14:48 Drug: Metoprolol 5 mg {Note: 3rd dose 1448.} Route: IVP; Site: right antecubital; [facility] 15:27 Drug: Lovenox (enoxaparin) 1 mg/kg Route: Sub-Q; Site: left lower abdomen; [facility] 15:27 Drug: Sotalol 80 mg Route: PO; [facility] Disposition: 15:07 Critical Care:. ms3 Disposition Summary: 06/12/22 15:08 Hospitalization Ordered Hospitalization Status: Inpatient Admission ms3 Provider: Conchis Trujillo ms3 Condition: Stable ms3 Problem: new ms3 Symptoms: are unchanged ms3 Bed/Room Type: Standard ms3 Location: Telemetry/MedSurg (Inpatient)(06/13/22 12:35) Room Assignment: [facility](06/13/22 12:35) Diagnosis - Unspecified atrial fibrillation ms3 - Shortness of breath ms3 - Secondary hypertension, unspecified ms3 - Elevated troponin ms3 Forms: - Medication Reconciliation Form ms3 - SBAR form ms3 Critical care time excluding procedures: 15:07 Critical care time: Bedside Care: 35 minutes, Consultation: 10 minutes. Total time: 45 ms3 minutes Signatures: Dispatcher [employer] Kristi Barron RN RN Gely Daugherty RN RN cg Sims, Marcus, DO DO ms3 Li Tapia RN RN jh5 Corrections: (The following items were deleted from the chart) 13:54 13:53 PSHx: cardiac stents; ss ss 18:56 15:08 Telemetry/MedSurg (Inpatient) ms3 cg 18:56 15:08 ms3 cg 06/13 12:35 06/12 18:56 [facility] ER HOLD cg ss 06/13 12:35 06/12 18:56 ERHOLD- cg ss
--- NOTE | 2022-06-12 15:08 | ER ---
Nurse's Notes [facility] Name: Nghia Meredith Jr Age: 51 yrs Sex: Male : 1970 Arrival Date: 06/12/2022 Time: 13:43 Bed 24 Private MD: Diagnosis: Unspecified atrial fibrillation;Shortness of breath;Secondary hypertension, unspecified;Elevated troponin Presentation: 06/12 13:51 Chief complaint: Patient states: Breathing difficulty that began on Sunday. Pt ss reports that SOB is worse upon exertion. Had cardiac stent placed this month. Coronavirus screen: Client denies travel out of the [place] in the last 14 days. Ebola Screen: Patient denies exposure to infectious person. Patient denies travel to an Ebola-affected area in the 21 days before illness onset. Initial Sepsis Screen: Does the patient meet any 2 criteria? No. Patient's initial sepsis screen is negative. Does the patient have a suspected source of infection? No. Patient's initial sepsis screen is negative. Risk Assessment: Do you want to hurt yourself or someone else? Patient reports no desire to harm self or others. Onset of symptoms was June 10, 2022. 13:51 Method Of Arrival: Ambulatory ss 13:51 Acuity: LISETTE 2 ss Historical: - Allergies: 13:53 No Known Allergies; ss - PMHx: 13:53 Hypertensive disorder; Hypertensive disorder; CAD; PUD; ss - PSHx: 13:53 cardiac stents; ss - Immunization history:: Client reports having NOT received the Covid vaccine. - Social history:: Smoking status: Patient denies any tobacco usage or history of. Screenin:54 [facility] ED Fall Risk Assessment (Adult) History of falling in the last 3 months, jh5 including since admission No falls in past 3 months (0 pts) Confusion or Disorientation No (0 pts) Intoxicated or Sedated No (0 pts) Impaired Gait No (0 pts) Mobility Assist Device Used No (0 pt) Altered Elimination No (0 pt) Score/Fall Risk Level 0 - 2 = Low Risk. Abuse screen: Denies threats or abuse. Denies injuries from another. Nutritional screening: No deficits noted. Tuberculosis screening: No symptoms or risk factors identified. Vital Signs: 13:51 BP 179 / 139; Pulse 136; Resp 20; Temp 97.5(TE); Pulse Ox 98% on R/A; Weight 113.4 kg; ss Height 5 ft. 10 in. (177.80 cm); Pain 0/10; 14:36 BP 189 / 143; Pulse 137; jh5 14:42 BP 156 / 119; Pulse 114; jh5 14:48 BP 161 / 110; Pulse 108; jh5 16:41 BP 183 / 115; Pulse 92; jh5 13:51 Body Mass Index 35.87 (113.40 kg, 177.80 cm) ED Course: 13:43 Patient arrived in ED. rg4 13:53 Triage completed. ss 13:53 Arm band placed on right wrist. ss 13:54 Figueroa Garrison DO is Attending Physician. ms3 14:37 XRAY Chest (1 view) In Process Unspecified. EDMS 14:54 Patient has correct armband on for positive identification. Bed in low position. Call jh5 light in reach. Side rails up X 1. 14:54 No provider procedures requiring assistance completed. Inserted saline lock: 20 gauge [facility] in right antecubital area, using aseptic technique. 15:08 Conchis Trujillo MD is Hospitalizing Provider. ms3 15:14 CT Chest For PE Angio In Process Unspecified. EDMS 19:10 Nadira Bernard RN is Primary Nurse. kd3 06/13 13:03 Patient admitted, IV remains in place. ko1 Administered Medications: 06/12 14:36 Drug: Metoprolol 5 mg {Note: dose 1 1436.} Route: IVP; Site: right antecubital; jh5 14:42 Drug: Metoprolol 5 mg {Note: second dose 1442.} Route: IVP; Site: right antecubital; jh5 14:48 Drug: Metoprolol 5 mg {Note: 3rd dose 1448.} Route: IVP; Site: right antecubital; jh5 15:27 Drug: Lovenox (enoxaparin) 1 mg/kg Route: Sub-Q; Site: left lower abdomen; jh5 15:27 Drug: Sotalol 80 mg Route: PO; jh5 Outcome: 15:08 Decision to Hospitalize by Provider. ms3 06/13 13:03 Admitted to Tele accompanied by tech, room 415, with chart. ko1 13:14 Patient left the ED. ss Signatures: Dispatcher [employer] EDMS Kristi Natarajan, RN RN ss Nalini Daugherty rg4 Figueroa Garrison DO DO ms3 Li Tapia RN RN jh5 Nadira Bernard RN RN kd3 Anushka Marquez RN RN ko1 Corrections: (The following items were deleted from the chart) 06/12 13:54 13:53 PSHx: cardiac stents; [facility]
--- NOTE | 2022-06-12 15:20 | RAD REPORT ---
EXAM DESCRIPTION: CT - Chest For Pe Angio - 06/12/2022 3:12 pm CLINICAL HISTORY: shortness of breath, tachycardia COMPARISON: Chest Single View dated 06/12/2022 TECHNIQUE: Dynamically enhanced 3 mm thick images of the chest were obtained during administration o f approximately 150mL Isovue 370 IV contrast. Coronal and oblique MIP reconstruction images were gene rated and reviewed. Exam utilizes a protocol to evaluate the pulmonary arterial tree. All CT scans are performed using dose optimization technique as appropriate and may include automated exposure control or mA/KV adjustment according to patient size. FINDINGS: No pulmonary emboli are identified. The aorta as imaged shows no acute or suspicious finding. Cardiomegaly present without pericardial th ickening or effusion. Interstitial thickening is present primarily in the mid and lower lung palmer. Sh slightly worse on t he right. No focal consolidation or air bronchogram formation. No pleural based mass and no pneumotho rax. Small pleural effusions are present, slightly larger on the right. No mediastinal or hilar suspicious masses. No chest wall masses or abnormal axillary lymphadenopathy. IMPRESSION: No pulmonary emboli identified. Mild to moderate CHF/ volume overload findings as detailed.
[2022-06-12] MEDS ORDERED: SOTALOL HCL 80 MG TAB ONE (15:26)
[2022-06-12] MEDS ORDERED: ENOXAPARIN 100 MG/ML SYR SQ ONE (15:27)
[2022-06-12] MEDS ORDERED: HYDROCODONE/APAP 5/325 MG TAB PO PRN (17:00)
[2022-06-12] MEDS ORDERED: ACETAMINOPHEN 325 MG TABLET PO PRN (17:00)
[2022-06-12] MEDS ORDERED: ONDANSETRON 4 MG/2 ML VIAL IV PRN (17:02)
[2022-06-12] MEDS ORDERED: LABETALOL 20 MG/4ML SYRINGE IV PRN (17:08)
--- NOTE | 2022-06-12 17:11 | P.HP ---
Certification for Inpatient Patient admitted to: Inpatient With expected LOS: >2 Midnights Patient will require the following post-hospital care: None Practitioner: I am a practitioner with admitting privileges, knowledge of patient current condition, hospital course, and medical plan of care. Services: Services provided to patient in accordance with Admission requirements found in Title 42 Section 412.3 of the Code of Federal Regulations Patient History Date of Service: 06/12/22 Reason for admission: SOB History of Present Illness: Patient is a 51-year-old male with a past medical history significant for hypertension, CAD, Afib on Eliquis, PUD, obesity who presents with complaint of shortness of breath that has been ongoing for the past 2 days. Patient reported that he recently had 2 stents placed 2 weeks ago with his technical instructor course developer. Patient reported associated signs and symptoms of chest tightness. Patient denies any other signs and symptoms. Symptoms are aggravated by exertion and relieved by nothing. Patient decided to present to the hospital due to worsening symptoms. Allergies No Known Allergies Allergy (Unverified 05/29/22 14:28) Home Medications: Amiodarone HCl [Cordarone*] 200 mg PO DAILY #30 tab 05/31/22 Apixaban [Eliquis] 5 mg PO BID #60 tab 05/31/22 Aspirin Chewable [Aspirin Chewable*] 81 mg PO DAILY #30 tab.chew 05/31/22 Atorvastatin Calcium [Lipitor] 40 mg PO BEDTIME #30 tab 05/31/22 Clopidogrel Bisulfate [Plavix*] 75 mg PO DAILY #30 tab 05/31/22 Metoprolol Tartrate [Lopressor*] 25 mg PO BID #60 tab 05/31/22 - Past Medical/Surgical History Diabetic: No -: CAD with stent -: HTN -: Obesity -: PUD -: Afib -: cardiac stents - Social History Smoking Status: Never smoker Alcohol use: Yes CD- Drugs: No Caffeine use: Yes Place of Residence: Home Review of Systems General: Unremarkable Eyes: Unremarkable ENT: Unremarkable Respiratory: Shortness of Breath, SOB with Excertion, Other (Chest tightness ) Cardiovascular: Unremarkable Gastrointestinal: Unremarkable Genitourinary: Unremarkable Musculoskeletal: Unremarkable Integumentary: Unremarkable Neurological: Unremarkable Lymphatics: Unremarkable Physical Examination - Physical Exam General: Alert, In no apparent distress, Oriented x3, Cooperative HEENT: Atraumatic, PERRLA, Mucous membr. moist/pink, EOMI, Sclerae nonicteric Neck: Supple, 2+ carotid pulse no bruit, No LAD, Without JVD or thyroid abnormality Respiratory: Diminished Cardiovascular: No murmurs, Irregular heart rate/rhythm Capillary refill: <2 Seconds Gastrointestinal: Normal bowel sounds, Non-distended, No tenderness Musculoskeletal: No clubbing, No swelling, No tenderness Integumentary: No rashes, No breakdown, No significant lesion, No tenderness/swelling Neurological: Normal speech, Normal tone, Normal affect Lymphatics: No axilla or inguinal lymphadenopathy - Studies Laboratory Data (last 24 hrs) 06/12/22 14:13: WBC 10.40, Hgb 14.8, Hct 43.2, Plt Count 197 06/12/22 14:13: Sodium 141, Potassium 4.3, BUN 18, Creatinine 1.03, Glucose 101 Assessment and Plan - Plan --A. fib with RVR. Cardiology consulted. Patient given sotalol and metoprolol in the ER. Continue amiodarone, weight based Lovenox and metoprolol per recommendation of technical instructor course developer. Telemetry to monitor for any significant arrhythmia. Will await further recommendation from technical instructor course developer. -- HLD. Continue statin. --History of CAD with stents. Continue aspirin, Plavix and statin. --Acute on chronic systolic CHF exacerbation. Continue diuresis with Lasix. Daily weight and strict I/O. Further management per technical instructor course developer. --History of PUD. Patient placed on Protonix. --Obesity. Likely secondary to excess calories intake. Patient counseled on weight reduction, diet and exercise therapy. --Hypertension. Poorly controlled. Continue home medications and labetalol as needed. --Elevated troponin. We will trend troponin levels. Continue weigh based Lovenox. Telemetry to monitor for any significant arrhythmia. Further management per technical instructor course developer. --DVT prophylaxis with Lovenox subQ. Discharge Plan: Home Plan to discharge in: Greater than 2 days - Advance Directives Does patient have a Living Will: No Does patient have a Durable POA for Healthcare: No - Code Status/Comfort Care Code Status Assessed: Yes Physician Review: Patient Assessed, Agree with Above Assessment and Plan Critical Care: No
[2022-06-12 17:45] LABS: SARS-CoV-2 Antigen Rapid Res Negative (Negative)
[2022-06-12 18:06] LABS: Magnesium 2.3 mg/dL (1.6-2.4); Phosphorus 3.5 mg/dL (2.5-4.9); Thyroid Stimulating Hormone 1.96 uIU/mL (0.358-3.740)
--- NOTE | 2022-06-12 18:36 | CON ---
Date of Consultation: 06/12/2022 Reason For Consultation: Atrial fibrillation with rapid ventricular response and elevated troponin. History Of Present Illness: A 51-year-old male, known history of coronary artery disease, status pos t recent coronary angiogram done on May, at which time he had a 99% stenosis of his mid left circ umflex, status post successful PCI. No other significant disease. He has a non-dominant RCA with 80 % stenosis. It is very small vessel. Comes in this time because of shortness of breath and lower ex tremity edema and orthopnea as well as palpitations. Found to be in atrial fibrillation with rapid v entricular response and had signs of congestive heart failure. Denies having any chest pain. No oth er complaints. Past Medical History: Coronary artery disease, hypertension, atrial fibrillation. Medications: Refer to reconciliation sheet for detailed list. Allergies: NO KNOWN DRUG ALLERGIES. Family History: No premature coronary artery disease or cancer. Social History: He is an ex-smoker, not currently. Does not use any drugs. Review of Systems: All systems reviewed and they were negative except what mentioned in HPI. Physical Examination: Vital Signs: Reviewed. Head and Neck: Pupils are equal, reactive to light. Intact eye movements. Mild JVD elevation. Lungs: Positive bilateral air entry with faint crackles in the bases. No accessory muscle use or mu scle retraction. Heart: Irregularly irregular. No extra sounds. Abdomen: Soft, nontender. Bowel sounds positive. No organomegaly. No masses or hernia. No rigidi ty or rebound. Extremities: 2 to 3+ pedal edema. No clubbing or cyanosis. Intact pulses. Skin: No rash. Neurologic: Alert, awake, oriented x3. No acute focal deficits appreciated. Investigations: NT-proBNP is 4091. Troponin 339. BUN is 18, creatinine 1.03, hemoglobin 14.8. CTA of the chest showed moderate CHF with no PE. Assessment And Recommendations: 1.Acute on chronic diastolic heart failure exacerbation. The patient is severely fluid overloaded a nd asymptomatic. His ejection fraction per recent echo was 45% to 50%. Agree with Lasix 40 mg IV q. 12 hours. Monitor BUN, creatinine, electrolytes. 2.Atrial fibrillation. Rate is not well controlled. Continue amiodarone and increase metoprolol to 50 mg twice a day and discontinue sotalol. 3.Dyslipidemia. Continue statin. 4.Coronary artery disease, recent stent to the left circumflex. Troponin is slightly elevated. Thi s is demand. Trend 2 more sets of cardiac enzymes and continue aspirin and Plavix. SR/MODL Voice ID: [id number] Report ID: [id number]
[2022-06-12 19:54] VITALS: BMI 35.9
[2022-06-12] MEDS: Enoxaparin 120 MG/0.8 ML SYR SQ SCH (21:00)
[2022-06-12] MEDS ORDERED: METOPROLOL TAR 25 MG TAB PO SCH (21:00)
[2022-06-12] MEDS ORDERED: METOPROLOL TAR 50 MG TAB ONE (21:21)
[2022-06-12] MEDS ORDERED: FUROSEMIDE 40 MG/4 ML VIAL ONE (21:22)
[2022-06-12] MEDS ORDERED: ENOXAPARIN 30 MG/0.3 ML SQ ONE ×2 (21:24→23:45)
[2022-06-12] MEDS ORDERED: ENOXAPARIN 80 MG/0.8 ML SQ ONE ×3 (21:24→23:45)
[2022-06-12] MEDS ORDERED: ATORVASTATIN 40 MG TAB ONE (21:30)
[2022-06-12] MEDS: ATORVASTATIN 40 MG TAB PO SCH (21:34)
[2022-06-12] MEDS: FUROSEMIDE 40 MG/4 ML VIAL IV SCH (21:35)
[2022-06-12] MEDS: METOPROLOL TAR 50 MG TAB PO SCH (21:35)
[2022-06-12] MEDS ORDERED: ENOXAPARIN 40 MG/0.4 ML SQ ONE (21:41)
[2022-06-13 03:45] LABS: Absolute Lymphocytes (CBC) 1.5 K/uL (0.7-4.9); Hematocrit 44.7 % (39.6-49.0); Lymphocytes % 17.7 % (15.3-44.8); MCV 92.2 fL (80-100); MPV 9.8 fL (7.6-11.3); RBC Red Blood Cell Count 4.85 M/uL (4.33-5.43)
[2022-06-13 04:11] LABS: Potassium 3.8 mmol/L (3.5-5.1)
[2022-06-13] MEDS: PANTOPRAZOLE 40MG TABLET PO SCH (05:51)
[2022-06-13] MEDS ORDERED: PANTOPRAZOLE 40MG TABLET PO ONE (05:52)
[2022-06-13] MEDS: AMIODARONE HCL 200 MG TAB PO SCH (09:00)
[2022-06-13] MEDS: ASPIRIN 81 MG CHEWABLE TABLET PO SCH (09:00)
[2022-06-13] MEDS: Enoxaparin 120 MG/0.8 ML SYR SQ SCH ×2 (09:00→20:46)
[2022-06-13] MEDS: METOPROLOL TAR 50 MG TAB PO SCH ×2 (09:00→20:46)
[2022-06-13] MEDS ORDERED: POTASSIUM CL SA 10 MEQ TAB PO ONE ×2 (09:00→10:15)
[2022-06-13] MEDS: FUROSEMIDE 40 MG/4 ML VIAL IV SCH ×2 (09:00→16:09)
[2022-06-13] MEDS ORDERED: SOTALOL HCL 80 MG TAB PO SCH (09:00)
[2022-06-13] MEDS: CLOPIDOGREL 75 MG TABLET PO SCH (09:00)
[2022-06-13] MEDS ORDERED: METOPROLOL TAR 50 MG TAB ONE (10:14)
[2022-06-13] MEDS ORDERED: AMIODARONE HCL 200 MG TAB ONE (10:14)
[2022-06-13] MEDS ORDERED: CLOPIDOGREL 75 MG TABLET ONE (10:15)
[2022-06-13] MEDS ORDERED: ASPIRIN 81 MG CHEWABLE TABLET ONE (10:15)
[2022-06-13] MEDS ORDERED: ENOXAPARIN 100 MG/ML SYR SQ ONE (10:15)
[2022-06-13] MEDS ORDERED: FUROSEMIDE 40 MG/4 ML VIAL ONE (10:15)
[2022-06-13] MEDS ORDERED: ENOXAPARIN 30 MG/0.3 ML SQ ONE (10:16)
--- NOTE | 2022-06-13 12:28 | EKG ---
Test Date: 2022-06-12 Test Time: 14:20:55 Rv Repairer: TINY MEASUREMENT RESULTS: Intervals: Rate: 127 IL: QRSD: 114 QT: 340 QTc: 494 [place]: P: IL: QRS: 101 T: -28 INTERPRETIVE STATEMENTS: Atrial fibrillation with rapid ventricular response Rightward axis T wave abnormality, consider inferior ischemia or digitalis effect Abnormal ECG Compared to ECG 05/29/2022 13:29:47 Right-axis deviation now present T-wave abnormality still present Possible ischemia still present Electronically Signed On 06-13-22 12:25:17 REMEDIATION TECHNICIAN by Marco A Dickinson
[2022-06-13] MEDS: ATORVASTATIN 40 MG TAB PO SCH (20:46)
[2022-06-14] MEDS: PANTOPRAZOLE 40MG TABLET PO SCH (05:48)
[2022-06-14 06:07] LABS: Absolute Lymphocytes (CBC) 1.3 K/uL (0.7-4.9); Hematocrit 43.9 % (39.6-49.0); Lymphocytes % 15.6 % (15.3-44.8); MCV 91.6 fL (80-100); MPV 9.8 fL (7.6-11.3); RBC Red Blood Cell Count 4.79 M/uL (4.33-5.43)
[2022-06-14 06:46] LABS: Albumin 3.6 g/dL (3.4-5.0); Bilirubin Total 0.7 mg/dL (0.2-1.0); Magnesium 2.3 mg/dL (1.6-2.4); Potassium 4.1 mmol/L (3.5-5.1); Protein, Total 6.9 g/dL (6.4-8.2)
[2022-06-14 06:47] LABS: Troponin High Sensitivity 253.4 pg/mL (<58.9)
--- NOTE | 2022-06-14 07:55 | RAD REPORT ---
EXAM DESCRIPTION: Kathi Single View06/14/2022 5:40 am CLINICAL HISTORY: Chest pain COMPARISON: June 12 FINDINGS: Bilateral pulmonary opacities have partially resolved. Heart remains enlarged IMPRESSION: Improvement in minimal CHF
[2022-06-14] MEDS: AMIODARONE HCL 200 MG TAB PO SCH (09:00)
[2022-06-14] MEDS: METOPROLOL TAR 50 MG TAB PO SCH ×2 (10:03→20:34)
[2022-06-14] MEDS: CLOPIDOGREL 75 MG TABLET PO SCH (10:04)
[2022-06-14] MEDS: Enoxaparin 120 MG/0.8 ML SYR SQ SCH ×2 (10:04→20:34)
[2022-06-14] MEDS: ASPIRIN 81 MG CHEWABLE TABLET PO SCH (10:05)
[2022-06-14] MEDS: FUROSEMIDE 40 MG/4 ML VIAL IV SCH ×2 (10:05→16:14)
[2022-06-14 16:33] LABS: Specific Gravity 1.018 (1.005-1.030); Urine Bilirubin NEGATIVE (Negative); Urine Blood Negative (Negative); Urine Clarity Clear (Clear); Urine Color Light-Yellow (Yellow); Urine Glucose NEGATIVE (Negative); Urine Protein NEGATIVE (Negative); Urine Urobilinogen Normal (Normal)
[2022-06-14] MEDS: ATORVASTATIN 40 MG TAB PO SCH (20:34)
--- NOTE | 2022-06-15 02:12 | P.PN ---
Subjective Date of Service: 06/13/22 Subjective: No new changes, No C/O voiced plan to continue with diuresing. Continue medication for rate control. Appreciate Cardiology assistance. Review of Systems 10-point ROS is otherwise unremarkable Physical Examination - Vital Signs Temperature: 98.7 F Blood Pressure: 151/78 Pulse: 83 Respirations: 19 Pulse Ox (%): 96 - Physical Exam General: Alert, In no apparent distress, Oriented x3 Respiratory: Diminished, Crackles/rales Cardiovascular: Regular rate/rhythm, Normal S1 S2, No murmurs Gastrointestinal: Normal bowel sounds, Soft and benign, Non-distended, No ten derness Musculoskeletal: No clubbing, No swelling, No tenderness Neurological: Sensation intact, Cranial nerves 3-12 intact - Studies Medications List Reviewed: Yes Assessment & Plan - Problems (Diagnosis) (1) Acute exacerbation of CHF (congestive heart failure) Current Visit: Yes Status: Acute (2) Atrial fibrillation with RVR Current Visit: No Status: Acute (3) History of coronary artery disease Current Visit: No Status: Acute (4) Hyperlipidemia Current Visit: No Status: Acute (5) Hypertension Current Visit: No Status: Acute - Plan 1. Echocardiogram 2. Monitor volume status closely 3. We will start patient on a Beta duane 4. Cardiology consultation 5. Aggressive diuresis 6. Strict I's and O's 7. Repeat CXR 8. Daily weights 9. Education regarding diet and treatment of congestive heart failure Discharge Plan: Home Plan to discharge in: Greater than 2 days - Advance Directives Does patient have a Living Will: No Does patient have a Durable POA for Healthcare: No - Code Status/Comfort Care Code Status Assessed: Yes Code Status: Full Code Physician Review: Patient Assessed, Agree with Above Assessment and Plan Critical Care: No Time Spent Managing PTS Care (In Minutes): 35
--- NOTE | 2022-06-15 02:13 | P.PN ---
Date of Service: 06/14/22 Subjective patient continues to improve. Clinical symptoms are much better. Review of Systems 10-point ROS is otherwise unremarkable Physical Examination - Vital Signs Reviewed - Physical Exam General: Alert, In no apparent distress, Oriented x3 Respiratory: Diminished, Crackles/rales Cardiovascular: Regular rate/rhythm, Normal S1 S2, No murmurs Gastrointestinal: Normal bowel sounds, Soft and benign, Non-distended, No tenderness Musculoskeletal: No clubbing, No swelling, No tenderness Neurological: Sensation intact, Cranial nerves 3-12 intact - Studies Medications List Reviewed: Yes Assessment & Plan - Problems (Diagnosis) (1) Acute exacerbation of CHF (congestive heart failure) Current Visit: Yes Status: Acute (2) Atrial fibrillation with RVR Current Visit: No Status: Acute (3) History of coronary artery disease Current Visit: No Status: Acute (4) Hyperlipidemia Current Visit: No Status: Acute (5) Hypertension Current Visit: No Status: Acute - Plan continue plan of care as mentioned below: 1. Echocardiogram 2. Monitor volume status closely 3. We will start patient on a Beta duane 4. Cardiology consultation 5. Aggressive diuresis 6. Strict I's and O's 7. Repeat CXR 8. Daily weights 9. Education regarding diet and treatment of congestive heart failure Discharge Plan: Home Plan to discharge in: Greater than 2 days - Advance Directives Does patient have a Living Will: No Does patient have a Durable POA for Healthcare: No - Code Status/Comfort Care Code Status Assessed: Yes Code Status: Full Code Physician Review: Patient Assessed, Agree with Above Assessment and Plan Critical Care: No Time Spent Managing PTS Care (In Minutes): 35
[2022-06-15] MEDS: PANTOPRAZOLE 40MG TABLET PO SCH (05:53)
[2022-06-15] MEDS: ASPIRIN 81 MG CHEWABLE TABLET PO SCH (09:08)
[2022-06-15] MEDS: METOPROLOL TAR 50 MG TAB PO SCH (09:08)
[2022-06-15] MEDS: AMIODARONE HCL 200 MG TAB PO SCH (09:08)
[2022-06-15] MEDS: Enoxaparin 120 MG/0.8 ML SYR SQ SCH (09:08)
[2022-06-15] MEDS: FUROSEMIDE 40 MG/4 ML VIAL IV SCH ×2 (09:09→16:21)
[2022-06-15] MEDS: CLOPIDOGREL 75 MG TABLET PO SCH (09:09)
[2022-06-15 09:31] LABS: Potassium 4.1 mmol/L (3.5-5.1)
[2022-06-15 16:10] VITALS: O2SAT 96
[2022-06-15 16:22] VITALS: BP 141/96
[2022-06-15 16:46] VITALS: TEMP 98.2
== END 2022-06-15 17:10 | disposition home or self-care (01) | DRG 291 ==
LOC: ER 13:40 → ERHOLD 16:57 → 4TH 06-13 12:57
PROVIDERS: ADMIT Hospitalist; ATTEND Hospitalist
DX: I11.0 Hypertensive heart disease with heart failure (principal); I50.23 Acute on chronic systolic (congestive) heart failure; I48.91 Unspecified atrial fibrillation; E78.5 Hyperlipidemia, unspecified; E66.09 Other obesity due to excess calories; I25.10 Atherosclerotic heart disease of native coronary artery without angina pectoris; R77.8 Other specified abnormalities of plasma proteins; Z95.5 Presence of coronary angioplasty implant and graft; Z79.01 Long term (current) use of anticoagulants; Z79.82 Long term (current) use of aspirin; Z79.02 Long term (current) use of antithrombotics/antiplatelets; Z79.899 Other long term (current) drug therapy; Z87.891 Personal history of nicotine dependence; Z28.310 Unvaccinated for COVID-19; Z20.822 Contact with and (suspected) exposure to COVID-19
CPT/HCPCS: 36415; 71045; 71275; 80048; 80053; 80061; 81003; 82607; 83036; 83735; 83880; 84100; 84439; 84443; 84484; 85025; 87811; 93005; 96372; 96374; 99285; J1650; J1940; Q9967

== ENCOUNTER 2023-10-17 08:44 | Emergency (ER) | payer SELFPAY ==
--- OUTSIDE RECORDS SUMMARY | 2023-10-17 08:50 | XMS REPORT | Continuity of Care Document ---
Author Name Unknown Address [address] [facility] [address] [place] [id number] [facility] thconnect Address [address] [facility] [address] [place] [address] Care Team Providers Care Supervisor [employer] Name Role Phone Kell Sen Primary Care Physician Doctor Unassigned, [place] Attending Clinician U alek Gonzalez RN, Gabriel Aceves Attending Clinician Unavail able TRUONG SIU Attending Clinician Unavailable Alejandra Lin MD Attending Clinician [phone] Person Truong MARROQUIN Attending Clinician [phone] ALEJANDRA LIN Admitting Clinician Alejandra Dotson MD Admitting Clinician [phone] Problems Condition Name Condition Details Condition Category Status Onset Date Resolution Date Last Treatment Date Treating Clinician Comments Source Trauma Trauma Disease Active 07-25 00:00: 00 [facility] Closed traumatic fracture of ribs of right side with pneumothor ax Closed traumatic fracture of ribs of right side with pneumothor ax Disease Active 07-25 00:00: 00 Overview: Formattin g of this note might be different from the original. 3rd R rib displaced [facility] Closed displaced fracture of acromial end of right clavicle Closed displaced fracture of acromial end of right clavicle Disease Active 07-25 00:00: 00 [facility] Right pulmonary contusion Right pulmonary contusion Disease Active 07-25 00:00: 00 [facility] Abrasion, multiple sites Abrasion, multiple sites Disease Active 07-25 00:00: 00 [facility] Closed fracture of transverse process of lumbar vertebra Closed fracture of transverse process of lumbar vertebra Disease Active 07-25 00:00: 00 Overview: Formattin g of this note might be different from the original. Right 2, 3, 4 [facility] Obesity (BMI 30-39.9) Obesity (BMI 30-39.9) Disease Active 11-18 00:00: 00 [facility] Chest pain Chest pain Disease Active 11-03 00:00: 00 [facility] Allergies, Adverse Reactions, Alerts Allergy Name Allergy Type Status Severity Reaction(s) Onset Date Inactive Date Treating Clinician Comments Source NO KNOWN ALLERGIE S Drug Class Active [facility] Social History Social Habit Start Date Stop Date Quantity Comments Source History SDOH Social Connections Get Together [facility] History SDOH Social Connections Mormon [facility] History SDOH Social Connections Membership [facility] History SDOH Social Connections Meetings [facility] Exposure to SARS-CoV-2 (event) 2022-08-29 00:00:00 2022-09-08 10:14:00 Not sure [facility] History SDOH Housing Unable to Pay 2022-09-08 00:00:00 2022-09-08 00:00:00 2 [facility] History SDOH Housing Places Lived 2022-09-08 00:00:00 2022-09-08 00:00:00 0 [facility] History SDOH Housing Homeless Last Year 2022-09-08 00:00:00 2022-09-08 00:00:00 2 [facility] History of Social function 2022-09-08 00:00:00 2022-09-08 00:00:00 [facility] History SDOH Financial 2022-09-08 00:00:00 2022-09-08 00:00:00 3 [facility] History SDOH Food Worry 2022-09-08 00:00:00 2022-09-08 00:00:00 1 [facility] History SDOH Food Scarcity 2022-09-08 00:00:00 2022-09-08 00:00:00 1 [facility] History SDOH Transport Med 2022-09-08 00:00:00 2022-09-08 00:00:00 2 [facility] History SDOH Transport Non-Med 2022-09-08 00:00:00 2022-09-08 00:00:00 2 [facility] Alcohol intake 2022-07-27 00:00:00 2022-07-27 00:00:00 Current drinker of alcohol (finding) [facility] History SDOH Alcohol Frequency 2022-07-26 00:00:00 2022-07-26 00:00:00 5 [facility] History SDOH Alcohol Std Drinks 2022-07-26 00:00:00 2022-07-26 00:00:00 2 [facility] History SDOH Alcohol Binge 2022-07-26 00:00:00 2022-07-26 00:00:00 4 [facility] History SDOH Social Connections Phone 2022-07-26 00:00:00 2022-07-26 00:00:00 3 [facility] History SDOH Social Connections Living 2022-07-26 00:00:00 2022-07-26 00:00:00 5 [facility] History SDOH Physical Activity DPW 2022-07-26 00:00:00 2022-07-26 00:00:00 2 [facility] History SDOH Physical Activity MPS 2022-07-26 00:00:00 2022-07-26 00:00:00 2 [facility] Alcohol Comment 2022-07-25 00:00:00 2022-07-25 00:00:00 Current user, unspecified amount [facility] Cigarette pack-years 2015-11-04 00:00:00 2015-11-04 00:00:00 [facility] Cigarettes smoked current (pack per day) - Reported 2015-11-04 00:00:00 2015-11-04 00:00:00 [facility] History of tobacco use 2010-11-03 00:00:00 Cigarette Smoker [facility] Sex Ass[birth year] At 1970 00:00:00 1970 00:00:00 [facility] Smoking Status Start Date Stop Date Source Ex-smoker 2015-11-04 00:00:00 2015-11-04 00:00:00 [facility] Medications Ordered Medication Name Filled Medication Name Start Date Stop Date Current Medication? Ordering Clinician Indication Dosage Frequency Signature (SIG) Comments Components Source lisinopril 20 mg tablet 10-14 00:00: 00 Yes 1mg Mayito Fountain lisinopril 10 mg tablet 10-03 00:00: 00 Yes 1mg Mayito Fountain amiodarone 200 mg tablet 10-02 00:00: 00 Yes 1mg Mayito Fountain clopidogrel 75 mg tablet 10-02 00:00: 00 Yes 1mg Mayito Fountain amlodipine 10 mg tablet 10-02 00:00: 00 Yes 1mg Mayito Fountain metoprolol tartrate 50 mg tablet 10-02 00:00: 00 Yes 1mg Mayito Fountain atorvastati n 10 mg tablet 10-02 00:00: 00 Yes 1mg Mayito Fountain TAKE 1 TABLET TWICE DAILY. 01-24 00:00: 00 10-03 00:00 :00 No 50 Mayito Fountain TAKE 1 TABLET DAILY. 01-24 00:00: 00 10-03 00:00 :00 No 10 Mayito Fountain TAKE 1 TABLET AT BEDTIME. 01-24 00:00: 00 10-03 00:00 :00 No 10 Mayito Fountain TAKE 1 TABLET DAILY. 01-24 00:00: 00 10-03 00:00 :00 No 81 Mayito Fountain TAKE 1 TABLET DAILY. 01-24 00:00: 00 10-03 00:00 :00 No 75 Mayito Fountain TAKE 1 TABLET DAILY 12-27 00:00: 00 Yes Mayito Fountain TAKE 1 TABLET TWICE DAILY. 12-27 00:00: 00 10-03 00:00 :00 No 50 Mayito Fountani TAKE 1 TABLET AT BEDTIME. 12-27 00:00: 00 10-03 00:00 :00 No 10 Mayito Fountain TAKE 1 TABLET DAILY. 12-27 00:00: 00 10-03 00:00 :00 No 75 Mayito Fountain TAKE 1 TABLET DAILY. 12-27 00:00: 00 10-03 00:00 :00 No 81 Mayito Fountain TAKE 1 TABLET DAILY. 12-27 00:00: 00 10-03 00:00 :00 No 10 Mayito Fountain TAKE 1 TABLET TWICE A DAY 09-19 00:00: 00 10-03 00:00 :00 No [id number] Mayito Fountain methocarbam oL 500 mg tablet 09-08 00:00: 00 Yes [id number] 500mg Take 1 tablet by mouth every 6 (six) hours. [facility] TAKE 1 TABLET BY MOUTH EVERY 6 HOURS NEEDED 09-08 00:00: 00 Yes Mayito Fountain TAKE 1 TABLET DAILY. 08-25 00:00: 00 10-03 00:00 :00 No 75 Mayito Fountain TAKE 1 TABLET TWICE DAILY. 08-25 00:00: 00 10-03 00:00 :00 No 50 Mayito Fountain TAKE 1 TABLET DAILY. 08-25 00:00: 00 10-03 00:00 :00 No 10 Mayito Fountain TAKE 1 TABLET DAILY. 08-25 00:00: 00 10-03 00:00 :00 No 81 Mayito Fountain TAKE 1 TABLET AT BEDTIME. 08-14 00:00: 00 10-03 00:00 :00 No 10 Mayito Fountain TAKE 1 TABLET TWICE DAILY. 08-14 00:00: 00 10-03 00:00 :00 No [id number] Mayito Fountain TAKE 1 TABLET BY MOUTH EVERY DAY 24 00:00: 00 Yes Mayito Fountain TAKE 1 TABLET TWICE DAILY. 08-11 00:00: 00 10-03 00:00 :00 No 50 Mayito Fountain TAKE 1 TABLET DAILY. 08-11 00:00: 00 10-03 00:00 :00 No 81 Mayito Fountain TAKE 1 TABLET DAILY. 08-11 00:00: 00 10-03 00:00 :00 No 200 Mayito Fountain TAKE 1 TABLET DAILY. 08-11 00:00: 00 10-03 00:00 :00 No 75 Mayito Fountain TAKE 1 TABLET DAILY. 08-11 00:00: 00 10-03 00:00 :00 No 10 Mayito Fountain amiodarone 200 mg tablet 07-29 00:00: 00 08-13 04:59 :00 No [id number] 200mg Take 1 tablet by mouth in the morning for 14 days. [facility] aspirin 81 mg chewable tablet 07-29 00:00: 00 08-13 04:59 :00 No [id number] 81mg Take 1 tablet by mouth in the morning for 14 days. [facility] clopidogreL 75 mg tablet 07-29 00:00: 00 08-13 04:59 :00 No [id number] 75mg Take 1 tablet by mouth in the morning for 14 days. [facility] methocarbam oL 500 mg tablet 07-28 00:00: 00 Yes [id number] 500mg Take 1 tablet by mouth every 6 (six) hours. [facility] TAKE 1 TABLET BY MOUTH IN THE MORNING AND IN THE EVENING FOR 14 DAYS 07-28 00:00: 00 Yes Mayito Fountain PLEASE SEE ATTACHED FOR DETAILED DIRECTIONS 07-28 00:00: 00 Yes Mayito Fountain TAKE 1 TABLET BY MOUTH EVERY 6 HOURS NEEDED 07-28 00:00: 00 Yes Mayito Fountain TAKE 1 TABLET BY MOUTH IN THE MORNING FOR 14 DAYS 07-28 00:00: 00 Yes Mayito Fountain acetaminoph en 500 mg tablet 07-28 00:00: 00 08-12 04:59 :00 No [id number] 500mg Take 1 tablet by mouth every 6 (six) hours as needed for Pain for up to 14 days. [facility] metoprolol tartrate 50 mg tablet 07-28 00:00: 00 08-12 04:59 :00 No [id number] 50mg Take 1 tablet by mouth in the morning and 1 tablet in the evening. Do all this for 14 days. [facility] HYDROcodone -acetaminop hen (NORCO) 5-325 mg tablet 07-28 00:00: 00 08-05 04:59 :00 No [id number] 1{tbl} Take 1 tablet by mouth every 6 (six) hours as needed for Pain (scale 4-6) for up to 7 days. Indication s: acute pain [facility] clopidogreL (PLAVIX) 75 mg tablet 75 mg 07-27 15:00: 00 Yes 75mg 75 mg, Oral, DAILY, First dose on Rosanne 07/27/22 at 0900, Until Discontinu ed, Routine [facility] aspirin chewable tablet 81 mg 07-27 15:00: 00 Yes 81mg 81 mg, Oral, DAILY, First dose on [facility] 07/27/22 at 0900, Until Discontinu ed, Routine [facility] amiodarone (PACERONE) tablet 200 mg 07-27 15:00: 00 Yes 200mg 200 mg, Oral, DAILY, First dose on Rosanne 07/27/22 at 0900, Until Discontinu ed, Routine [facility] D5W 0.45% NaCl (1/2NS) IV infusion 1,000 mL 07-27 14:15: 00 Yes 1000mL at 50 mL/hr, 1,000 mL, IV Infusion, CONTINUOUS , Starting on Rosanne 07/27/22 at 0815, Until Discontinu ed, [facility] 5 % (700 mg/patch) patch 1 Patch 07-27 07:30: 00 07-27 18:38 :00 No 1{patch } 1 Patch, Topical, Administer over 12 Hours, ONCE, 1 dose, On Sun07/27/22 at 0130, LEANNA [facility] acetaminoph en (TYLENOL) tablet 500 mg 07-27 06:32: 39 Yes 500mg 500 mg, Oral, Q6HPRN, Starting on Sun07/27/22 at 0032, Until Discontinu ed, Routine, Pain (scale 1-3) [facility] lactated ringers IV infusion 500 mL 07-27 02:15: 00 07-27 02:30 :00 No 500mL at 999 mL/hr, 500 mL, Intravenou s, ONCE, 1 dose, On Sun07/26/22 at 2015, Routine [facility] ondansetron (ZOFRAN (PF)) injection 4 mg 07-27 00:12: 32 Yes 4mg 4 mg, Slow IV Push, Q6HPRN, Starting on Sun07/26/22 at 1812, Until Discontinu ed, Routine, Nausea and Vomiting (N/V) [facility] aspirin tablet 325 mg 07-26 20:00: 00 07-26 23:10 :30 No 325mg 325 mg, Oral, DAILY, First dose on Sun07/26/22 at 1400, Until Discontinu ed, Routine [facility] pantoprazol e (PROTONIX) injection 40 mg 07-26 19:15: 00 Yes 40mg 40 mg, Slow IV Push, Q24H, First dose (after last modificati on) on Sun07/26/22 at 1315, Until Discontinu ed [facility] D5W 0.45% NaCl (1/2NS) IV infusion 1,000 mL 07-26 18:15: 00 07-27 14:09 :13 No 1000mL at 100 mL/hr, 1,000 mL, IV Infusion, CONTINUOUS , Starting on Sun07/26/22 at 1215, Until Sun07/27/22 at 0809, Routine [facility] HYDROcodone -acetaminop hen (NORCO) 10-325 mg tablet 1 tablet 07-26 17:10: 43 Yes 1{tbl} 1 tablet, Oral, Q6HPRN, Starting on Sun07/26/22 at 1110, Until Discontinu ed, Routine, Pain (scale 7-10) [facility] HYDROcodone -acetaminop hen (NORCO 5) 5-325 mg tablet 1 tablet 07-26 17:10: 27 Yes 1{tbl} 1 tablet, Oral, Q6HPRN, Starting on Sun07/26/22 at 1110, Until Discontinu ed, Routine, Pain (scale 4-6) [facility] amLODIPine (NORVASC) tablet 10 mg 07-26 15:00: 00 Yes 10mg 10 mg, Oral, DAILY, First dose on Sun07/26/22 at 0900, Until Discontinu ed, Routine [facility] metoprolol (LOPRESSOR) injection 5 mg 07-26 06:11: 00 07-26 06:16 :00 No 5mg 5 mg, Intravenou s, ONCE, 1 dose, On Sun07/26/22 at 0015, Routine [facility] acetaminoph en (TYLENOL) tablet 1,000 mg 07-26 04:00: 00 07-26 17:11 :13 No 1000mg 1,000 mg, Oral, Q8H, 6 doses, First dose on Sun07/25/22 at 2200, Last dose on Sun07/27/22 at 1400, Routine [facility] metoprolol tartrate (LOPRESSOR) tablet 50 mg 07-26 02:00: 00 Yes 50mg 50 mg, Oral, BID, First dose on Sun07/25/22 at 2000, Until Discontinu ed, Routine [facility] enoxaparin (LOVENOX) injection 30 mg 07-26 02:00: 00 Yes 30mg 30 mg, Subcutaneo us, Q12H, First dose (after last modificati on) on Sun07/25/22 at 2000, Until Discontinu ed, Routine [facility] furosemide (LASIX) tablet 20 mg 07-26 01:45: 00 07-26 16:00 :26 No 20mg 20 mg, Oral, QAM+PM, First dose on Sun07/25/22 at 1945, Until Discontinu ed, Routine [facility] methocarbam oL (ROBAXIN) tablet 500 mg 07-26 00:00: 00 Yes 500mg 500 mg, Oral, Q6H, First dose on Sun07/25/22 at 1800, Until Discontinu ed, Routine [facility] iopamidol (ISOVUE 370-500 mL) injection 50 mL 07-25 23:45: 00 07-25 23:35 :00 No [id number] 50mL 50 mL, Intravenou s, ONCE, 1 dose, On Sun07/25/22 at 1745, Routine [facility] morpHINE 30 mg/30 mL (fixed dose) [employer] injection 07-25 20:00: 00 07-26 17:11 :13 No Patient Bolus Dose: 1 mg
Lock out Interval: 6 Minutes
Basal Rate: 0 mg/hr
F our Hour Dose Limit: 24 mg
Intr avenous, 30 mL, CONTINUOUS , Starting on Sun07/25/22 at 1400, Until Sun07/26/22 at 1111 [facility] lidocaine (LIDODERM) 5 % (700 mg/patch) patch 1 Patch 07-25 19:30: 00 07-26 07:30 :00 No 1{patch } 1 Patch, Topical, Administer over 12 Hours, ONCE, 1 dose, On Sun07/25/22 at 1330, LEANNA [facility] morpHINE (4 mg/mL) injection 4 mg 07-25 19:30: 00 07-25 18:46 :00 No 4mg 4 mg, Slow IV Push, ONCE, 1 dose, On Sun07/25/22 at 1330, STAT [facility] morpHINE 2 mg/mL LOAD & RESCUE INJECTION SYRG 07-25 18:45: 36 07-26 17:11 :13 No Slow IV Push, Routine [facility] lactated ringers IV infusion 1,000 mL 07-25 17:45: 00 07-26 04:20 :00 No 1000mL at 999 mL/hr, 1,000 mL, Intravenou s, ONCE, 1 dose, On Sun07/25/22 at 1145, STAT [facility] morpHINE (4 mg/mL) injection 4 mg 07-25 17:15: 00 07-25 17:04 :00 No 4mg 4 mg, Slow IV Push, ONCE, 1 dose, On Sun07/25/22 at 1115, STAT [facility] morpHINE (4 mg/mL) injection 4 mg 07-25 16:15: 00 07-25 14:58 :00 No 4mg 4 mg, Slow IV Push, ONCE, 1 dose, On Sun07/25/22 at 1015, STAT [facility] ceFAZolin (ANCEF) 2,000 mg in NaCl 0.9% (NS) 100 mL MINI-BAG 07-25 16:15: 00 07-25 15:47 :00 No 2000mg 2,000 mg, Intravenou s, ONCE, 1 dose, On Sun07/25/22 at 1015, Administer over 30 Minutes, 100 mL
Reas on for Anti-Infec tive: Empiric Therapy for Suspected Infection< br>Empiric Therapy Site: Skin / Soft tissue
Duration of therapy: 72 hours [facility] iopamidol (ISOVUE 370-500 mL) injection 100 mL 07-25 15:10: 00 07-25 15:10 :00 No [id number] 100mL 100 mL, Intravenou s, ONCE, 1 dose, On Sun07/25/22 at 0930, Routine [facility] lactated ringers IV infusion 1,000 mL 07-25 14:45: 00 07-25 15:45 :00 No 1000mL at 999 mL/hr, 1,000 mL, Intravenou s, ONCE, 1 dose, On 3/7/23 at 0845, STAT [facility] TAKE 1 TABLET BY MOUTH TWICE A DAY 06-15 00:00: 00 Yes Mayito Fountain TAKE 1 TABLET BY MOUTH EVERY DAY 06-15 00:00: 00 Yes Mayito Fountain TAKE 1 TABLET BY MOUTH EVERY DAY 06-15 00:00: 00 Yes Mayito Fountain TAKE 1 TABLET BY MOUTH TWICE A DAY 05-31 00:00: 00 Yes Mayito Fountain TAKE 1 TABLET BY MOUTH TWICE A DAY 05-31 00:00: 00 Yes Mayito Fountain TAKE 1 TABLET BY MOUTH EVERY DAY 05-31 00:00: 00 Yes Mayito Fountain 40 MG BY MOUTH AT BEDTIME 05-31 00:00: 00 Yes Mayito Fountain cloniDINE (CATAPRES) 0.1 mg tablet 11-15 00:00: 00 Yes .1mg Take 1 tablet by mouth 2 (two) times daily as needed (for blood pressure greater than 180/110, go to ER if remains elevated after 1 hour or symptoms). [facility] amLODIPine (NORVASC) 10 mg tablet 11-15 00:00: 00 Yes 10mg Take 1 tablet by mouth daily. [facility] pantoprazol e (PROTONIX) 40 mg EC tablet 11-15 00:00: 00 Yes 40mg Take 1 tablet by mouth 2 (two) times daily. [facility] Immunizations Ordered Immunization Name Filled Immunization Name Date Status Comments Source TD Pres-Free 2022-07-25 00:00:00 Completed [facility] TD Pres-Free 2022-07-25 00:00:00 Completed [facility] TD Pres-Free 2022-07-25 00:00:00 Completed [facility] TD Pres-Free 2022-07-25 00:00:00 Completed [facility] TD Pres-Free Unknown Completed [facility] Vital Signs Vital Name Observation Time Observation Value Comments S meg Systolic blood pressure 2022-07-28 14:18:00 128 mm[Hg] [facility] Diastolic blood pressure 2022-07-28 14:18:00 85 mm[Hg] [facility] Heart rate 2022-07-28 14:18:00 93 /min [facility] Body temperature 2022-07-28 14:18:00 36.61 Nilsa [facility] Oxygen saturation in Arterial blood by Pulse oximetry 2022-07-28 14:18:00 96 /min [place] [facility] Respiratory rate 2022-07-28 10:29:00 19 /min [facility] Body weight 2022-07-27 21:15:00 119.5 kg [facility] BMI 2022-07-27 21:15:00 37.80 kg/m2 [facility] Body height 2022-07-25 14:42:00 177.8 cm [facility] BP Systolic 2023-10-15 08:13:00 150 mm[Hg] Step hen F Александр BP Diastolic 2023-10-15 08:13:00 100 mm[Hg] Dandre phen F Александр Weight Measured 2023-10-15 08:13:00 248.20 pounds Mayito F Александр Height Measured 2023-10-15 08:13:00 67.00 inches Mayito F Александр Body Temperature 2023-10-15 08:13:00 97.50 degrees Mayito F Александр Heart Rate 2023-10-15 08:13:00 78.00 /min Elisa en F Александр Respiratory Rate 2023-10-15 08:13:00 18.00 /min Mayito F Александр BP Systolic 2023-10-04 08:45:00 147 mm[Hg] Step hen F Александр BP Diastolic 2023-10-04 08:45:00 103 mm[Hg] Dandre phen F Александр Weight Measured 2023-10-04 08:45:00 263.40 pounds Mayito F Александр Height Measured 2023-10-04 08:45:00 67.00 inches Mayito F Александр Body Temperature 2023-10-04 08:45:00 97.20 degrees Mayito F Александр Heart Rate 2023-10-04 08:45:00 88.00 /min Elisa en F Александр Respiratory Rate 2023-10-04 08:45:00 18.00 /min Mayito F Александр BP Diastolic 2023-10-03 08:04:00 134 mm[Hg] Dandre phen F Александр Weight Measured 2023-10-03 08:04:00 262.40 pounds Mayito F Александр Height Measured 2023-10-03 08:04:00 67.00 inches Mayito F Александр Body Temperature 2023-10-03 08:04:00 95.60 degrees Mayito F Александр Heart Rate 2023-10-03 08:04:00 128.00 /min Step hen F Александр Respiratory Rate 2023-10-03 08:04:00 18.00 /min Mayito F Александр BP Systolic 2023-10-03 08:04:00 223 mm[Hg] Step hen F Александр BP Systolic 2023-01-24 13:43:00 142 mm[Hg] Step hen F Александр BP Diastolic 2023-01-24 13:43:00 93 mm[Hg] Dandre phen F Александр Weight Measured 2023-01-24 13:43:00 260.20 pounds Mayito F Александр Height Measured 2023-01-24 13:43:00 67.00 inches Mayito F Александр Body Temperature 2023-01-24 13:43:00 98.20 degrees Mayito F Александр Heart Rate 2023-01-24 13:43:00 100.00 /min Step hen F Александр Respiratory Rate 2023-01-24 13:43:00 18.00 /min Mayito F Александр BP Systolic 2023-01-24 13:29:00 142 mm[Hg] Step hen F Александр BP Diastolic 2023-01-24 13:29:00 93 mm[Hg] Dandre phen F Александр Weight Measured 2023-01-24 13:29:00 260.20 pounds Mayito F Александр Height Measured 2023-01-24 13:29:00 67.00 inches Mayito F Александр Body Temperature 2023-01-24 13:29:00 98.20 degrees Mayito F Александр Heart Rate 2023-01-24 13:29:00 100.00 /min Step hen F Александр Respiratory Rate 2023-01-24 13:29:00 18.00 /min Mayito F Александр BP Systolic 2022-12-27 14:01:00 146 mm[Hg] Step hen F Александр BP Diastolic 2022-12-27 14:01:00 120 mm[Hg] Dandre phen F Александр Weight Measured 2022-12-27 14:01:00 261.80 pounds Mayito F Александр Height Measured 2022-12-27 14:01:00 67.00 inches Mayito F Александр Body Temperature 2022-12-27 14:01:00 98.20 degrees Mayito F Александр Heart Rate 2022-12-27 14:01:00 85.00 /min Elisa en F Александр Respiratory Rate 2022-12-27 14:01:00 19.00 /min Mayito F Александр BP Systolic 2022-12-27 13:43:00 146 mm[Hg] Step hen F Александр BP Diastolic 2022-12-27 13:43:00 120 mm[Hg] Dandre phen F Александр Weight Measured 2022-12-27 13:43:00 261.80 pounds Mayito F Александр Height Measured 2022-12-27 13:43:00 67.00 inches Mayito F Александр Body Temperature 2022-12-27 13:43:00 98.20 degrees Mayito F Александр Heart Rate 2022-12-27 13:43:00 85.00 /min Elisa en F Александр Respiratory Rate 2022-12-27 13:43:00 19.00 /min Mayito F Александр BP Systolic 2022-09-29 09:08:00 197 mm[Hg] Step hen F Александр BP Diastolic 2022-09-29 09:08:00 128 mm[Hg] Dandre phen F Александр Weight Measured 2022-09-29 09:08:00 260.80 pounds Mayito F Александр Height Measured 2022-09-29 09:08:00 67.00 inches Mayito F Александр Body Temperature 2022-09-29 09:08:00 97.90 degrees Mayito F Александр Heart Rate 2022-09-29 09:08:00 93.00 /min Elisa en F Александр Respiratory Rate 2022-09-29 09:08:00 Mayito F Александр BP Systolic 2022-08-25 09:21:00 147 mm[Hg] Step hen F Александр BP Diastolic 2022-08-25 09:21:00 85 mm[Hg] Dandre phen F Александр Weight Measured 2022-08-25 09:21:00 251.80 pounds Mayito F Александр Height Measured 2022-08-25 09:21:00 67.00 inches Mayito F Александр Body Temperature 2022-08-25 09:21:00 98.20 degrees Mayito F Александр Heart Rate 2022-08-25 09:21:00 69.00 /min Elisa en F Александр Respiratory Rate 2022-08-25 09:21:00 19.00 /min Mayito F Александр BP Systolic 2022-08-11 16:06:00 191 mm[Hg] Step hen F Александр BP Diastolic 2022-08-11 16:06:00 116 mm[Hg] Dandre phen F Александр Weight Measured 2022-08-11 16:06:00 254.60 pounds Mayito F Александр Height Measured 2022-08-11 16:06:00 67.00 inches Mayito F Александр Body Temperature 2022-08-11 16:06:00 98.60 degrees Mayito F Александр Heart Rate 2022-08-11 16:06:00 120.00 /min Step hen F Александр Respiratory Rate 2022-08-11 16:06:00 18.00 /min Mayito F Александр BP Systolic 2022-08-11 14:56:00 191 mm[Hg] Step hen F Александр BP Diastolic 2022-08-11 14:56:00 116 mm[Hg] Dandre phen F Александр Weight Measured 2022-08-11 14:56:00 254.60 pounds Mayito F Александр Height Measured 2022-08-11 14:56:00 67.00 inches Mayito F Александр Body Temperature 2022-08-11 14:56:00 98.60 degrees Mayito F Александр Heart Rate 2022-08-11 14:56:00 120.00 /min Step hen F Александр Respiratory Rate 2022-08-11 14:56:00 18.00 /min Mayito F Александр BP Systolic 2015-11-04 10:52:00 147 mm[Hg] Step hen F Александр BP Diastolic 2015-11-04 10:52:00 82 mm[Hg] Dandre phen F Александр Weight Measured 2015-11-04 10:52:00 232.60 pounds Mayito F Александр Height Measured 2015-11-04 10:52:00 67.00 inches Mayito F Александр Body Temperature 2015-11-04 10:52:00 97.50 degrees Mayito F Александр Heart Rate 2015-11-04 10:52:00 80.00 /min Elisa en F Александр Respiratory Rate 2015-11-04 10:52:00 15.00 /min Mayito Pierce Александр Procedures Procedure Date / Time Performed Performing Clinician Source REFERRAL- REQUEST/RESPONSE 2022-10-03 05:01:00 Doctor Unassigned, [place] [facility] CONSENT FOR FREE TREATMENT FORM 2022-09-08 15:15:34 Doctor Unassigned, [place] [facility] XR CHEST 1 VW 2022-07-28 10:40:[facility] 2022-07-28 09:40:00 Jesse Vazquez [facility] MAGNESIUM 2022-07-28 09:40:00 Jesse Vazquez [facility] BASIC METABOLIC PANEL (NA, K, CL, CO2, GLUCOSE, BUN, CREATININE, CA) 2022-07-28 09:40:00 Jesse Vazquez [facility] CBC WITH DIFF 2022-07-28 09:40:00 Jesse Vazquez [facility] EXTRA TUBE DK. GREEN 2022-07-28 09:40:00 Reny Perez [facility] XR CHEST 1 VW 2022-07-27 22:30:00 Jesse Vazquez [facility] XR CHEST 1 VW 2022-07-27 11:12:00 Jesse Vazquez [facility] PHOSPHORUS 2022-07-27 09:57:00 Jesse Vazquez [facility] MAGNESIUM 2022-07-27 09:57:00 Jesse Vazquez [facility] BASIC METABOLIC PANEL (NA, K, CL, CO2, GLUCOSE, BUN, CREATININE, CA) 2022-07-27 09:57:00 Jesse Vazquez [facility] CBC WITH DIFF 2022-07-27 09:57:00 Jesse Vazquez [facility] BASIC METABOLIC PANEL (NA, K, CL, CO2, GLUCOSE, BUN, CREATININE, CA) 2022-07-27 00:19:00 Jesse Vazquez [facility] XR CHEST 1 VW 2022-07-26 12:52:00 [facility] PHOSPHORUS 2022-07-26 10:03:00 [facility] 2022-07-26 10:03:00 Jesse Vazquez [facility] BASIC METABOLIC PANEL (NA, K, CL, CO2, GLUCOSE, BUN, CREATININE, CA) 2022-07-26 10:03:00 Jesse Vazquez [facility] CBC WITH DIFF 2022-07-26 10:03:00 Jesse Vazquez [facility] MAGNESIUM 2022-07-26 06:10:00 Bebeto [facility] BASIC METABOLIC PANEL (NA, K, CL, CO2, GLUCOSE, BUN, CREATININE, CA) 2022-07-26 06:10:00 Bebeto [facility] HB ECG ROUTINE & RHYTHM STRIP 2022-07-26 06:04:28 Bebeto [facility] XR CLAVICLE COMP RIGHT 2022-07-26 02:01:25 Ketan Lantigua [facility] XR SHOULDER <2 VW RIGHT 2022-07-26 01:45:00 Sa lanre Lin Chana [facility] CT ANGIOGRAM NECK 2022-07-25 23:40:00 Jesse Mendoza i [facility] BASIC METABOLIC PANEL (NA, K, CL, CO2, GLUCOSE, BUN, CREATININE, CA) 2022-07-25 22:37:00 Alejandra Lin [facility] CBC WITHOUT DIFF 2022-07-25 22:37:00 Alejandra Lin [facility] XR CHEST 1 VW 2022-07-25 19:07:38 Alejandra Lin [facility] XR ELBOW <3 VW RIGHT 2022-07-25 15:28:26 Jaspal Ronquillo [facility] XR FOREARM 2 VW RIGHT 2022-07-25 15:28:26 Mike Ronquillo [facility] XR HAND 3+ VW BILATERAL 2022-07-25 15:28:26 Vahibe, [facility] XR WRIST 3+ VW BILATERAL 2022-07-25 15:28:26 Vahibe, [facility] CT TRAUMA HEAD WO CONTRAST 2022-07-25 15:17:00 Vahibe, [facility] CT TRAUMA THORAX W CONTRAST 2022-07-25 15:17:00 V[place], [facility] CT TRAUMA CERVICAL SPINE WO CONTRAST 2022-07-25 15:17:00 Vahibe, [facility] CT TRAUMA THORACIC SPINE WO CONTRAST 2022-07-25 15:17:00 Vahibe, [facility] CT TRAUMA ABDOMEN PELVIS W CONTRAST 2022-07-25 15:17:00 Vahibe, [facility] CT TRAUMA LUMBAR SPINE WO CONTRAST 2022-07-25 15:17:00 V[place]ibe, [facility] HB ABO GROUPING 2022-07-25 14:48:00 Alejandra Lin [facility] BASIC METABOLIC PANEL (NA, K, CL, CO2, GLUCOSE, BUN, CREATININE, CA) 2022-07-25 14:46:00 Alejandra Lin [facility] CBC WITHOUT DIFF 2022-07-25 14:46:00 Alejandra Lin [facility] PROTHROMBIN TIME / INR 2022-07-25 14:46:00 William Lin [facility] ACTIVATED PARTIAL THRMPLAS CASE 2022-07-25 14:46:00 Alejandra Lin [facility] [id number] Ecg Routine Ecg W/least 12 Lds W/i r 2015-11-04 00:00:00 Mayito Fountain Encounters Start Date/Time End Date/Time Encounter Type Admission Type Attending [facility] Care Facility Care Department Encounter ID Source 2023-10-15 08:12:54 2023-10-15 08:12:54 Outpatient [facility] [id number] 0527 Mayito Fountain 2023-10-15 00:00:00 2023-10-15 00:00:00 Outpatient Visit [facility] [id number] Mayito Fountain 2023-10-04 08:42:14 2023-10-04 08:42:14 Outpatient [facility] 16 Mayito Pierce [place] 2023-10-04 00:00:00 2023-10-04 00:00:00 Outpatient Visit [facility] [id number] Mayito Pierce Александр 2023-10-03 08:03:46 2023-10-03 08:03:46 Outpatient SFA [facility] 514 Mayito Pierce Александр 2023-10-03 00:00:00 2023-10-03 00:00:00 Outpatient Visit [facility] [id number] Mayito Pierce [place] 2023-02-01 15:50:26 2023-02-01 15:50:26 Outpatient [facility] 14 Mayito Pierce [place] 2023-01-24 13:20:47 2023-01-24 13:20:47 Outpatient [facility] 905 Mayito Pierce [place] 2022-10-11 00:00:00 2022-10-11 00:00:00 Patient Secure Msg Doctor Unassigned, [place] [id number] [facility] 2022-10-03 00:00:00 2022-10-03 00:00:00 Orders Only Doctor Unassigned, [place] [id number] [facility] 2022-09-29 09:05:36 2022-09-29 09:05:36 Outpatient [facility] [id number] Mayito Pierce [place] 2022-09-08 00:00:00 2022-09-08 00:00:00 Orders Only Doctor Unassigned, [place] [id number] [facility] 2022-08-25 09:13:44 2022-08-25 09:13:44 Outpatient [facility] [id number] Mayito Fountain 2022-08-11 14:43:53 2022-08-11 14:43:53 Outpatient [facility] [id number] Mayito Fountain 2022-07-31 00:00:00 2022-07-31 00:00:00 Transition of Care Gabriel Gonzalez DANIELA BOUDREAUX [id number] [facility] 2022-07-25 08:42:00 2022-07-28 16:00:00 Inpatient [facility] [id number] [facility] 2022-07-25 08:42:00 2022-07-28 16:00:00 [id number] [id number] [facility] Results Test Description Test Time Test Comments Results Result Co mments Source LIPID [id number] 06:01:38* Test Item Value Reference Range Interpretation Comme nts CHOLESTEROL (test code = 2210) 189 MG/DL <200 TRIGLYCERIDES (test code = 2232) 204 MG/DL <150 H HDL CHOLESTEROL (test code = 2220) 30 MG/DL >39 L CALC LDL CHOL (test code = 2237) 127 MG/DL <100 H NOTE: CALCULATED LDL IS BASED ON CAYLA-GANNON METHOD WHICHINCLUDES ADJUSTABLE TRIGLYCERIDE:VLDL CHOLESTEROL RATIO.THIS FACTOR VARIES BY MEASURED TRIGLYCERIDE AND NON-HDLCHOLESTEROL CONCENTRATIONS WITH INCREASED CALCULATED LDL SEENIN HIGHER TRIGLYCERIDE OR LOWER NON-HDL SPECIMENS. FOR MOREINFORMATION, SEE CLIENT ANNOUNCEMENT AT [email or web address] RISK RATIO LDL/HDL (test code = 2238) 4.23 RATIO <3.55 H COMPREHENSIVE METABOLIC [id number] 06:01:38* Test Item Value Reference Range Interpretation Comme nts GLUCOSE (test code = 2216) 101 MG/DL 70-99 H BUN (test code = 2207) 22 MG/DL 6-20 H CREATININE (test code = 2213) 1.28 MG/DL 0.80-1.40 eGFR (2020 CKD-EPI) (test code = 66987) 67 ML/MIN/1.73 >60 CALC BUN/CREAT (test code = 5) 17 RATIO 6-28 SODIUM (test code = 223) 144 MEQ/L 133-146 POTASSIUM (test code = 8) 4.0 MEQ/L 3.5-5.4 CHLORIDE (test code = 2214) 105 MEQ/L 95-107 CARBON DIOXIDE (test code = 6) 23 MEQ/L 19-31 CALCIUM (test code = 2208) 9.3 MG/DL 8.5-10.5 PROTEIN, TOTAL (test code = 2228) 7.1 G/DL 6.1-8.3 ALBUMIN (test code = 2200) 4.6 G/DL 3.5-5.2 CALC GLOBULIN (test code = 2240) 2.5 G/DL 1.9-3.7 CALC A/G RATIO (test code = 2233) 1.8 RATIO 1.0-2.6 BILIRUBIN, TOTAL (test code = 2206) 0.5 MG/DL <=1.2 ALKALINE PHOSPHATASE (test code = 2203) 108 U/L 40-121 AST (test code = 221) 19 U/L 9-50 ALT (test code = 2219) 26 U/L 5-50 UNLESS OTHERWISE INDICATED, ALL TESTING PERFORMED AT [facility] [address] [place] [id number] [employer] PROJECT MANAGER: MATA SEYMOUR M.D. CLIA NUMBER [id number] [facility] [place]. [id number] CBC W/AUTO DIFF WITH [id number] 03:50:27* Test Item Value Reference Range Interpretation Comme nts WBC (test code = 1001) 9.0 K/UL 3.5-11.0 RBC (test code = 1002) 5.75 M/UL 4.50-6.10 HEMOGLOBIN (test code = 1003) 16.8 G/DL 13.5-17.0 HEMATOCRIT (test code = 1004) 51.5 % 40.0-51.0 H MCV (test code = 1005) 89.6 fL 80.0-99.0 MCH (test code = 1006) 29.2 PG 25.0-33.0 MCHC (test code = 1007) 32.6 G/DL 31.0-36.0 RDW (test code = 1038) 14.0 % 11.5-15.0 NEUTROPHILS (test code = 1008) 78.4 % LYMPHOCYTES (test code = 1010) 10.1 % MONOCYTES (test code = 1011) 7.1 % EOSINOPHILS (test code = 1012) 3.0 % BASOPHILS (test code = 1013) 0.8 % IMMATURE GRANULOCYTES (test code = 1036) 0.6 % NUCLEATED RBCS (test code = 1065) 0.0 /100 WBC'S See_Comment [Automated messa ge] The system which generated this result transmitted reference range: 0.0. The reference range was not used to interpret this result as normal/abnormal. PLATELET COUNT (test code = 1015) 156 K/UL 130-400 ABSOLUTE NEUTROPHILS (test code = 1066) 7.08 K/UL 1.50-7.50 ABSOLUTE LYMPHOCYTES (test code = 1067) 0.91 K/UL 1.00-4.00 L ABSOLUTE MONOCYTES (test code = 1068) 0.64 K/UL 0.20-1.00 ABSOLUTE EOSINOPHILS (test code = 1040) 0.27 K/UL 0.00-0.50 ABSOLUTE BASOPHILS (test code = 1069) 0.07 K/UL 0.00-0.20 ABS IMMATURE GRANULOCYTES (test code = 1020) 0.05 K/UL 0.00-0.10 ABS NUCLEATED RBCS (test code = 02429) 0.00 K/UL 0.00-0.11 CBC W/AUTO [id number] 00:00:00* Test Item Value Reference Range Interpretation Comme nts WBC (test code = 1001) 9.0 K/UL RBC (test code = 1002) 5.75 M/UL HEMOGLOBIN (test code = 1003) 16.8 G/DL HEMATOCRIT (test code = 1004) 51.5 % MCV (test code = 1005) 89.6 fL MCH (test code = 1006) 29.2 PG MCHC (test code = 1007) 32.6 G/DL RDW (test code = 1038) 14.0 % NEUTROPHILS (test code = 1008) 78.4 % LYMPHOCYTES (test code = 1010) 10.1 % MONOCYTES (test code = 1011) 7.1 % EOSINOPHILS (test code = 1012) 3.0 % BASOPHILS (test code = 1013) 0.8 % IMMATURE GRANULOCYTES (test code = 1036) 0.6 % NUCLEATED RBCS (test code = 1065) 0.0 /100WBC'S PLATELET COUNT (test code = 1015) 156 K/UL ABSOLUTE NEUTROPHILS (test c ode = 1066) 7.08 K/UL ABSOLUTE LYMPHOCYTES (test c ode = 1067) 0.91 K/UL ABSOLUTE MONOCYTES (test cod e = 1068) 0.64 K/UL ABSOLUTE EOSINOPHILS (test c ode = 1040) 0.27 K/UL ABSOLUTE BASOPHILS (test cod e = 1069) 0.07 K/UL ABS IMMATURE GRANULOCYTES (t est code = 1020) 0.05 K/UL ABS NUCLEATED RBCS (test cod e = 32938) 0.00 K/UL Mayito FountainHEMOGLOBIN [id number] 00:00:00* Test Item Value Reference Range Interpretation Comme nts HEMOGLOBIN A1c (test code = 39411) 5.7 % Mayito FountainLIPID [id number] 00:00:00* Test Item Value Reference Range Interpretation Comme nts CHOLESTEROL (test code = 2210) 189 MG/DL TRIGLYCERIDES (test code = 2232) 204 MG/DL HDL CHOLESTEROL (test code = 2220) 30 MG/DL CALC LDL CHOL (test code = 2237) 127 MG/DL RISK RATIO LDL/HDL (test cod e = 2238) 4.23 RATIO Mayito FountainCOMPREHENSIVE METABOLIC [id number] 00:00:00* Test Item Value Reference Range Interpretation Comme nts GLUCOSE (test code = 2217) 101 MG/DL BUN (test code = 2208) 22 MG/DL CREATININE (test code = 2214) 1.28 MG/DL eGFR (2020 CKD-EPI) (test co de = 53583) 67 ML/MIN/1.73 CALC BUN/CREAT (test code = 2235) 17 RATIO SODIUM (test code = 2231) 144 MEQ/L POTASSIUM (test code = 2228) 4.0 MEQ/L CHLORIDE (test code = 2215) 105 MEQ/L CARBON DIOXIDE (test code = 2206) 23 MEQ/L CALCIUM (test code = 2209) 9.3 MG/DL PROTEIN, TOTAL (test code = 2229) 7.1 G/DL ALBUMIN (test code = 2201) 4.6 G/DL CALC GLOBULIN (test code = 2240) 2.5 G/DL CALC A/G RATIO (test code = 2234) 1.8 RATIO BILIRUBIN, TOTAL (test code = 2207) 0.5 MG/DL ALKALINE PHOSPHATASE (test code = 2204) 108 U/L AST (test code = 2218) 19 U/L ALT (test code = 2219) 26 U/L Mayito Pierce [facility] W/AUTO [id number] 00:00:00* Test Item Value Reference Range Interpretation Comme nts WBC (test code = 1001) 9.0 K/UL RBC (test code = 1002) 5.75 M/UL HEMOGLOBIN (test code = 1003) 16.8 G/DL HEMATOCRIT (test code = 1004) 51.5 % MCV (test code = 1005) 89.6 fL MCH (test code = 1006) 29.2 PG MCHC (test code = 1007) 32.6 G/DL RDW (test code = 1038) 14.0 % NEUTROPHILS (test code = 1008) 78.4 % LYMPHOCYTES (test code = 1010) 10.1 % MONOCYTES (test code = 1011) 7.1 % EOSINOPHILS (test code = 1012) 3.0 % BASOPHILS (test code = 1013) 0.8 % IMMATURE GRANULOCYTES (test code = 1036) 0.6 % NUCLEATED RBCS (test code = 1065) 0.0 /100WBC'S PLATELET COUNT (test code = 1015) 156 K/UL ABSOLUTE NEUTROPHILS (test c ode = 1066) 7.08 K/UL ABSOLUTE LYMPHOCYTES (test c ode = 1067) 0.91 K/UL ABSOLUTE MONOCYTES (test cod e = 1068) 0.64 K/UL ABSOLUTE EOSINOPHILS (test c ode = 1040) 0.27 K/UL ABSOLUTE BASOPHILS (test cod e = 1069) 0.07 K/UL ABS IMMATURE GRANULOCYTES (t est code = 1020) 0.05 K/UL ABS NUCLEATED RBCS (test cod e = 99661) 0.00 K/UL Mayito FountainHEMOGLOBIN [id number] 00:00:00* Test Item Value Reference Range Interpretation Comme nts HEMOGLOBIN A1c (test code = 25171) 5.7 % Mayito FountainLIPID [id number] 00:00:00* Test Item Value Reference Range Interpretation Comme nts CHOLESTEROL (test code = 2210) 189 MG/DL TRIGLYCERIDES (test code = 2232) 204 MG/DL HDL CHOLESTEROL (test code = 2220) 30 MG/DL CALC LDL CHOL (test code = 2237) 127 MG/DL RISK RATIO LDL/HDL (test cod e = 2238) 4.23 RATIO Mayito FountainCOMPREHENSIVE METABOLIC [id number] 00:00:00* Test Item Value Reference Range Interpretation Comme nts GLUCOSE (test code = 2217) 101 MG/DL BUN (test code = 2208) 22 MG/DL CREATININE (test code = 2214) 1.28 MG/DL eGFR (2020 CKD-EPI) (test co de = 11871) 67 ML/MIN/1.73 CALC BUN/CREAT (test code = 2235) 17 RATIO SODIUM (test code = 2231) 144 MEQ/L POTASSIUM (test code = 2228) 4.0 MEQ/L CHLORIDE (test code = 2215) 105 MEQ/L CARBON DIOXIDE (test code = 2206) 23 MEQ/L CALCIUM (test code = 2209) 9.3 MG/DL PROTEIN, TOTAL (test code = 2229) 7.1 G/DL ALBUMIN (test code = 2201) 4.6 G/DL CALC GLOBULIN (test code = 2240) 2.5 G/DL CALC A/G RATIO (test code = 2234) 1.8 RATIO BILIRUBIN, TOTAL (test code = 2207) 0.5 MG/DL ALKALINE PHOSPHATASE (test code = 2204) 108 U/L AST (test code = 2218) 19 U/L ALT (test code = 2219) 26 U/L Mayito FountainCOMPREHENSIVE METABOLIC [id number] 04:42:58* Test Item Value Reference Range Interpretation Comme nts GLUCOSE (test code = 2217) 98 MG/DL 70-99 BUN (test code = 2207) 18 MG/DL 6-20 CREATININE (test code = 2213) 1.40 MG/DL 0.80-1.40 eGFR (2020 CKD-EPI) (test code = ) 60 ML/MIN/1.73 >60 L CALC BUN/CREAT (test code = 2234) 13 RATIO 6-28 SODIUM (test code = 2230) 142 MEQ/L 133-146 POTASSIUM (test code = 2227) 4.6 MEQ/L 3.5-5.4 CHLORIDE (test code = 2214) 106 MEQ/L 95-107 CARBON DIOXIDE (test code = 2205) 26 MEQ/L 19-31 CALCIUM (test code = 2208) 9.4 MG/DL 8.5-10.5 PROTEIN, TOTAL (test code = 2228) 7.0 G/DL 6.1-8.3 ALBUMIN (test code = 2200) 4.5 G/DL 3.5-5.2 CALC GLOBULIN (test code = 2239) 2.5 G/DL 1.9-3.7 CALC A/G RATIO (test code = 2233) 1.8 RATIO 1.0-2.6 BILIRUBIN, TOTAL (test code = 2206) 0.5 MG/DL See_Comment [Automated me ssage] The system which generated this result transmitted reference range: <=1.2. The reference range was not used to interpret this result as normal/abnormal. ALKALINE PHOSPHATASE (test code = 2203) 159 U/L 40-121 H AST (test code = 2217) 17 U/L 9-50 ALT (test code = 2218) 17 U/L 5-50 LIPID [id number] 04:42:58* Test Item Value Reference Range Interpretation Comme nts CHOLESTEROL (test code = 2209) 192 MG/DL <200 TRIGLYCERIDES (test code = 2) 201 MG/DL <150 H HDL CHOLESTEROL (test code = 2219) 30 MG/DL >39 L CALC LDL CHOL (test code = 2236) 127 MG/DL <100 H NOTE: CALCULATED LDL IS BASED ON CAYLA-GANNON METHOD WHICHINCLUDES ADJUSTABLE TRIGLYCERIDE:VLDL CHOLESTEROL RATIO.THIS FACTOR VARIES BY MEASURED TRIGLYCERIDE AND NON-HDLCHOLESTEROL CONCENTRATIONS WITH INCREASED CALCULATED LDL SEENIN HIGHER TRIGLYCERIDE OR LOWER NON-HDL SPECIMENS. FOR MOREINFORMATION, SEE CLIENT ANNOUNCEMENT AT [email or web address] RISK RATIO LDL/HDL (test code = 2238) 4.23 RATIO <3.55 H [facility] has i mportant pathology staff changes effective 07/19/2022. New pathology staff will provide uninterrupted, excellent patient care and clinical consultation. See URL: [email or web address] UNLESS OTHERWISE INDICATED, ALL TESTING PERFORMED AT [facility] [address] [place] [id number] LEAD PROJECT MANAGER: MATA SEYMOUR M.D. CLIA NUMBER [id number] [facility] [place]. [id number] CBC W/AUTO DIFF WITH [id number] 03:58:36* Test Item Value Reference Range Interpretation Comme nts WBC (test code = 1001) 8.4 K/UL 3.5-11.0 RBC (test code = 1002) 4.11 M/UL 4.50-6.10 L HEMOGLOBIN (test code = 1003) 12.7 G/DL 13.5-17.0 L HEMATOCRIT (test code = 1004) 38.6 % 40.0-51.0 L MCV (test code = 1005) 93.9 fL 80.0-99.0 MCH (test code = 1006) 30.9 PG 25.0-33.0 MCHC (test code = 1007) 32.9 G/DL 31.0-36.0 RDW (test code = 1038) 14.2 % 11.5-15.0 NEUTROPHILS (test code = 1008) 68.1 % LYMPHOCYTES (test code = 1010) 14.4 % MONOCYTES (test code = 1011) 9.1 % EOSINOPHILS (test code = 1012) 6.3 % BASOPHILS (test code = 1013) 0.9 % IMMATURE GRANULOCYTES (test code = 1036) 1.2 % NUCLEATED RBCS (test code = 1065) 0.0 /100 WBC'S See_Comment [Automated TapRusha ge] The system which generated this result transmitted reference range: 0.0. The reference range was not used to interpret this result as normal/abnormal. PLATELET COUNT (test code = 1015) 325 K/UL 130-400 ABSOLUTE NEUTROPHILS (test code = 1066) 5.74 K/UL 1.50-7.50 ABSOLUTE LYMPHOCYTES (test code = 1067) 1.21 K/UL 1.00-4.00 ABSOLUTE MONOCYTES (test code = 1068) 0.77 K/UL 0.20-1.00 ABSOLUTE EOSINOPHILS (test code = 1040) 0.53 K/UL 0.00-0.50 H ABSOLUTE BASOPHILS (test code = 1069) 0.08 K/UL 0.00-0.20 ABS IMMATURE GRANULOCYTES (test code = 1020) 0.10 K/UL 0.00-0.10 ABS NUCLEATED RBCS (test code = 18841) 0.00 K/UL 0.00-0.11 COMPREHENSIVE METABOLIC [id number] 00:00:00* Test Item Value Reference Range Interpretation Comme nts GLUCOSE (test code = 2217) 98 MG/DL BUN (test code = 2208) 18 MG/DL CREATININE (test code = 2214) 1.40 MG/DL eGFR (2020 CKD-EPI) (test co de = 78497) 60 ML/MIN/1.73 CALC BUN/CREAT (test code = 2235) 13 RATIO SODIUM (test code = 2231) 142 MEQ/L POTASSIUM (test code = 2228) 4.6 MEQ/L CHLORIDE (test code = 2215) 106 MEQ/L CARBON DIOXIDE (test code = 2206) 26 MEQ/L CALCIUM (test code = 2209) 9.4 MG/DL PROTEIN, TOTAL (test code = 2229) 7.0 G/DL ALBUMIN (test code = 2201) 4.5 G/DL CALC GLOBULIN (test code = 2240) 2.5 G/DL CALC A/G RATIO (test code = 2234) 1.8 RATIO BILIRUBIN, TOTAL (test code = 2207) 0.5 MG/DL ALKALINE PHOSPHATASE (test code = 2204) 159 U/L AST (test code = 2218) 17 U/L ALT (test code = 2219) 17 U/L Mayito FountainMónica W/AUTO [id number] 00:00:00* Test Item Value Reference Range Interpretation Comme nts WBC (test code = 1001) 8.4 K/UL RBC (test code = 1002) 4.11 M/UL HEMOGLOBIN (test code = 1003) 12.7 G/DL HEMATOCRIT (test code = 1004) 38.6 % MCV (test code = 1005) 93.9 fL MCH (test code = 1006) 30.9 PG MCHC (test code = 1007) 32.9 G/DL RDW (test code = 1038) 14.2 % NEUTROPHILS (test code = 1008) 68.1 % LYMPHOCYTES (test code = 1010) 14.4 % MONOCYTES (test code = 1011) 9.1 % EOSINOPHILS (test code = 1012) 6.3 % BASOPHILS (test code = 1013) 0.9 % IMMATURE GRANULOCYTES (test code = 1036) 1.2 % NUCLEATED RBCS (test code = 1065) 0.0 /100WBC'S PLATELET COUNT (test code = 1015) 325 K/UL ABSOLUTE NEUTROPHILS (test c ode = 1066) 5.74 K/UL ABSOLUTE LYMPHOCYTES (test c ode = 1067) 1.21 K/UL ABSOLUTE MONOCYTES (test cod e = 1068) 0.77 K/UL ABSOLUTE EOSINOPHILS (test c ode = 1040) 0.53 K/UL ABSOLUTE BASOPHILS (test cod e = 1069) 0.08 K/UL ABS IMMATURE GRANULOCYTES (t est code = 1020) 0.10 K/UL ABS NUCLEATED RBCS (test cod e = 24709) 0.00 K/UL Mayito Pierce AustinLIPID [id number] 00:00:00* Test Item Value Reference Range Interpretation Comme nts CHOLESTEROL (test code = 2210) 192 MG/DL TRIGLYCERIDES (test code = 2232) 201 MG/DL HDL CHOLESTEROL (test code = 2220) 30 MG/DL CALC LDL CHOL (test code = 2237) 127 MG/DL RISK RATIO LDL/HDL (test cod e = 2238) 4.23 RATIO Mayito FountainCOMPREHENSIVE METABOLIC [id number] 00:00:00* Test Item Value Reference Range Interpretation Comme nts GLUCOSE (test code = 2217) 98 MG/DL BUN (test code = 2208) 18 MG/DL CREATININE (test code = 2214) 1.40 MG/DL eGFR (2020 CKD-EPI) (test co de = 34840) 60 ML/MIN/1.73 CALC BUN/CREAT (test code = 2235) 13 RATIO SODIUM (test code = 2231) 142 MEQ/L POTASSIUM (test code = 2228) 4.6 MEQ/L CHLORIDE (test code = 2215) 106 MEQ/L CARBON DIOXIDE (test code = 2206) 26 MEQ/L CALCIUM (test code = 2209) 9.4 MG/DL PROTEIN, TOTAL (test code = 2229) 7.0 G/DL ALBUMIN (test code = 2201) 4.5 G/DL CALC GLOBULIN (test code = 2240) 2.5 G/DL CALC A/G RATIO (test code = 2234) 1.8 RATIO BILIRUBIN, TOTAL (test code = 2207) 0.5 MG/DL ALKALINE PHOSPHATASE (test code = 2204) 159 U/L AST (test code = 2218) 17 U/L ALT (test code = 2219) 17 U/L Mayito Pierce [facility] [id number] 00:00:00* Test Item Value Reference Range Interpretation Comme nts WBC (test code = 1001) 8.4 K/UL RBC (test code = 1002) 4.11 M/UL HEMOGLOBIN (test code = 1003) 12.7 G/DL HEMATOCRIT (test code = 1004) 38.6 % MCV (test code = 1005) 93.9 fL MCH (test code = 1006) 30.9 PG MCHC (test code = 1007) 32.9 G/DL RDW (test code = 1038) 14.2 % NEUTROPHILS (test code = 1008) 68.1 % LYMPHOCYTES (test code = 1010) 14.4 % MONOCYTES (test code = 1011) 9.1 % EOSINOPHILS (test code = 1012) 6.3 % BASOPHILS (test code = 1013) 0.9 % IMMATURE GRANULOCYTES (test code = 1036) 1.2 % NUCLEATED RBCS (test code = 1065) 0.0 /100WBC'S PLATELET COUNT (test code = 1015) 325 K/UL ABSOLUTE NEUTROPHILS (test c ode = 1066) 5.74 K/UL ABSOLUTE LYMPHOCYTES (test c ode = 1067) 1.21 K/UL ABSOLUTE MONOCYTES (test cod e = 1068) 0.77 K/UL ABSOLUTE EOSINOPHILS (test c ode = 1040) 0.53 K/UL ABSOLUTE BASOPHILS (test cod e = 1069) 0.08 K/UL ABS IMMATURE GRANULOCYTES (t est code = 1020) 0.10 K/UL ABS NUCLEATED RBCS (test cod e = 40850) 0.00 K/UL Mayito FountainLIPID [id number] 00:00:00* Test Item Value Reference Range Interpretation Comme nts CHOLESTEROL (test code = 2210) 192 MG/DL TRIGLYCERIDES (test code = 2232) 201 MG/DL HDL CHOLESTEROL (test code = 2220) 30 MG/DL CALC LDL CHOL (test code = 2237) 127 MG/DL RISK RATIO LDL/HDL (test cod e = 2238) 4.23 RATIO Mayito FountainCOMPREHENSIVE METABOLIC [id number] 00:00:00* Test Item Value Reference Range Interpretation Comme nts GLUCOSE (test code = 2217) 98 MG/DL BUN (test code = 2208) 18 MG/DL CREATININE (test code = 2214) 1.40 MG/DL eGFR (2020 CKD-EPI) (test co de = 26905) 60 ML/MIN/1.73 CALC BUN/CREAT (test code = 2235) 13 RATIO SODIUM (test code = 2231) 142 MEQ/L POTASSIUM (test code = 2228) 4.6 MEQ/L CHLORIDE (test code = 2215) 106 MEQ/L CARBON DIOXIDE (test code = 2206) 26 MEQ/L CALCIUM (test code = 2209) 9.4 MG/DL PROTEIN, TOTAL (test code = 2229) 7.0 G/DL ALBUMIN (test code = 2201) 4.5 G/DL CALC GLOBULIN (test code = 2240) 2.5 G/DL CALC A/G RATIO (test code = 2234) 1.8 RATIO BILIRUBIN, TOTAL (test code = 2207) 0.5 MG/DL ALKALINE PHOSPHATASE (test code = 2204) 159 U/L AST (test code = 2218) 17 U/L ALT (test code = 2219) 17 U/L Mayito FountainCBC W/AUTO [id number] 00:00:00* Test Item Value Reference Range Interpretation Comme nts WBC (test code = 1001) 8.4 K/UL RBC (test code = 1002) 4.11 M/UL HEMOGLOBIN (test code = 1003) 12.7 G/DL HEMATOCRIT (test code = 1004) 38.6 % MCV (test code = 1005) 93.9 fL MCH (test code = 1006) 30.9 PG MCHC (test code = 1007) 32.9 G/DL RDW (test code = 1038) 14.2 % NEUTROPHILS (test code = 1008) 68.1 % LYMPHOCYTES (test code = 1010) 14.4 % MONOCYTES (test code = 1011) 9.1 % EOSINOPHILS (test code = 1012) 6.3 % BASOPHILS (test code = 1013) 0.9 % IMMATURE GRANULOCYTES (test code = 1036) 1.2 % NUCLEATED RBCS (test code = 1065) 0.0 /100WBC'S PLATELET COUNT (test code = 1015) 325 K/UL ABSOLUTE NEUTROPHILS (test c ode = 1066) 5.74 K/UL ABSOLUTE LYMPHOCYTES (test c ode = 1067) 1.21 K/UL ABSOLUTE MONOCYTES (test cod e = 1068) 0.77 K/UL ABSOLUTE EOSINOPHILS (test c ode = 1040) 0.53 K/UL ABSOLUTE BASOPHILS (test cod e = 1069) 0.08 K/UL ABS IMMATURE GRANULOCYTES (t est code = 1020) 0.10 K/UL ABS NUCLEATED RBCS (test cod e = 91474) 0.00 K/UL Mayito FountainLIPID [id number] 00:00:00* Test Item Value Reference Range Interpretation Comme nts CHOLESTEROL (test code = 2210) 192 MG/DL TRIGLYCERIDES (test code = 2232) 201 MG/DL HDL CHOLESTEROL (test code = 2220) 30 MG/DL CALC LDL CHOL (test code = 2237) 127 MG/DL RISK RATIO LDL/HDL (test cod e = 2238) 4.23 RATIO Mayito [id number] 10:31:53* Test Item Value Reference Range Interpretation Comme nts PHOSPHORUS (test code = 0281265681) 3.7 mg/dL 2.5-5.0 Lab Interpretation (test cod e = 14697-2) [facility] 10:31:53* Test Item Value Reference Range Interpretation Comme nts MAGNESIUM (test code = 6656927914) 2.3 mg/dL 1.7-2.4 Lab Interpretation (test cod e = 52596-3) [facility] (NA, K, CL, CO2, GLUCOSE, BUN, CREATININE, CA)2022-07-28 10:31:53* Test Item Value Reference Range Interpretation Comme nts NA (test code = 2449852828) 131 mmol/L 135-145 L K (test code = 4714829768) 4.3 mmol/L 3.5-5.0 CL (test code = 4029798344) 97 mmol/L 98-108 L CO2 TOTAL (test code = 2699767913) 29 mmol/L 23-31 AGAP (test code = 6095060670) 5 2-16 BUN (test code = 4644587576) 29 mg/dL 7-23 H GLUCOSE (test code = 6151172310) 106 mg/dL 70-110 CREATININE (test code = 5474048023) 1.20 mg/dL 0.60-1.25 CALCIUM (test code = 3686948819) 8.4 mg/dL 8.6-10.6 L eGFR (test code = 3044307284) 63.6 mL/min/1.73m2 RUBIA (test code = RUBIA) Association of Glomerular Filtration Rate (GFR) and Staging of Kidney Disease* + --+ --+ ------+| GFR (mL/min/1.73 m2) ?| With Kidney Damage ?| ?Without Kidney Damage+ --------+ --------+ +| ?>90 ?| ?Stage one ?| ? Normal ?+ ---+ ---+ -------+| ?60-89 ?| ?Stage two ?| ? Decreased GFR ? + --+ --+ ------+| ?30-59 ?| ?Stage three ?| ? Stage three ? + --+ --+ ------+| ?15-29 ?| ?Stage four ? | ? Stage four ?+ ---+ ---+ -------+| ?<15 (or dialysis) ? ?| ?Stage five ? | ? Stage five ?+ ---+ ---+ -------+ *Each stage assumes the associated GFR level has been in effect for at least three months. ?Stages 1 to 5, with or without kidney disease, indicate chronic kidney disease. Notes: Determination of stages one and two (with eGFR >59mL/min/1.73 m2) requires estimation of kidney damage for at least three months as defined by structural or functional abnormalities of the kidney, manifested by either:Pathological abnormalities or Markers of kidney damage (including abnormalities in the composition of the blood or urine or abnormalities in imaging tests). Lab Interpretation (test code = 41792-4) Abnormal [facility] WITH [id number] 10:03:10* Test Item Value Reference Range Interpretation Comme nts WBC (test code = 6690-2) 10.66 See_Comment [Automated TapRusha ge] The system which generated this result transmitted reference range: 4.20 - 10.70 10*3/?L. The reference range was not used to interpret this result as normal/abnormal. RBC (test code = 789-8) 3.35 See_Comment L [Automated [employer]ush[employer] ge] The system which generated this result transmitted reference range: 4.26 - 5.52 10*6/?L. The reference range was not used to interpret this result as normal/abnormal. HGB (test code = 718-7) 10.4 g/dL 12.2-16.4 L HCT (test code = 4544-3) 31.0 % 38.4-49.3 L MCV (test code = 787-2) 92.5 fL 81.7-95.6 MCH (test code = 785-6) 31.0 pg 26.1-32.7 MCHC (test code = 786-4) 33.5 g/dL 31.2-35.0 RDW-SD (test code = 77625-3) 44.8 fL 38.5-51.6 RDW-CV (test code = 788-0) 13.2 % 12.1-15.4 PLT (test code = 777-3) 184 See_Comment [Automated [employer]ush[employer] ge] The system which generated this result transmitted reference range: 150 - 328 10*3/?L. The reference range was not used to interpret this result as normal/abnormal. MPV (test code = 90361-9) 11.5 fL 9.8-13.0 NRBC/100 WBC (test code = 7288250438) 0.0 See_Comment [Automated [employer] ssage] The system which generated this result transmitted reference range: 0.0 - 10.0 /100 WBCs. The reference range was not used to interpret this result as normal/abnormal. NRBC x10^3 (test code = 1806628669) See_Comment [Automated messa ge] The system which generated this result transmitted reference range: 10*3/?L. The reference range was not used to interpret this result as normal/abnormal. GRAN MAT (NEUT) % (test code = 770-8) 72.9 % IMM GRAN % (test code = 0315880279) 1.80 % LYMPH % (test code = 736-9) 10.7 % MONO % (test code = 5905-5) 11.4 % EOS % (test code = 713-8) 2.4 % BASO % (test code = 706-2) 0.8 % GRAN MAT x10^3(ANC) (test code = 2933350662) 7.77 10*3/uL 1.99-6.95 H IMM GRAN x10^3 (test code = 0442555332) 0.19 10*3/uL 0.00-0.06 H LYMPH x10^3 (test code = 731-0) 1.14 10*3/uL 1.09-3.23 MONO x10^3 (test code = 742-7) 1.22 10*3/uL 0.36-1.02 H EOS x10^3 (test code = 711-2) 0.26 10*3/uL 0.06-0.53 BASO x10^3 (test code = 704-7) 0.08 10*3/uL 0.01-0.09 Lab Interpretation (test code = 81057-1) [facility] 10:59:40* Test Item Value Reference Range Interpretation Comme nts PHOSPHORUS (test code = 5935975267) 4.1 mg/dL 2.5-5.0 Lab Interpretation (test cod e = 77492-1) Normal [facility] 10:59:39* Test Item Value Reference Range Interpretation Comme nts MAGNESIUM (test code = 9649547016) 2.1 mg/dL 1.7-2.4 Lab Interpretation (test cod e = 13319-8) [facility] (NA, K, CL, CO2, GLUCOSE, BUN, CREATININE, CA)2022-07-27 10:59:39* Test Item Value Reference Range Interpretation Comme nts NA (test code = 1544488590) 132 mmol/L 135-145 L K (test code = 2546171644) 4.1 mmol/L 3.5-5.0 CL (test code = 5937278153) 98 mmol/L 98-108 CO2 TOTAL (test code = 1408275230) 27 mmol/L 23-31 AGAP (test code = 5037027284) 7 2-16 BUN (test code = 6535736170) 43 mg/dL 7-23 H GLUCOSE (test code = 2812341112) 118 mg/dL 70-110 H CREATININE (test code = 3069841972) 1.74 mg/dL 0.60-1.25 H CALCIUM (test code = 7784055593) 8.1 mg/dL 8.6-10.6 L eGFR (test code = 6084004255) 41.4 mL/min/1.73m2 RUBIA (test code = RUBIA) Association of Glomerular Filtration Rate (GFR) and Staging of Kidney Disease* + --+ --+ ------+| GFR (mL/min/1.73 m2) ?| With Kidney Damage ?| ?Without Kidney Damage+ --------+ --------+ +| ?>90 ?| ?Stage one ?| ? Normal ?+ ---+ ---+ -------+| ?60-89 ?| ?Stage two ?| ? Decreased GFR ? + --+ --+ ------+| ?30-59 ?| ?Stage three ?| ? Stage three ? + --+ --+ ------+| ?15-29 ?| ?Stage four ? | ? Stage four ?+ ---+ ---+ -------+| ?<15 (or dialysis) ? ?| ?Stage five ? | ? Stage five ?+ ---+ ---+ -------+ *Each stage assumes the associated GFR level has been in effect for at least three months. ?Stages 1 to 5, with or without kidney disease, indicate chronic kidney disease. Notes: Determination of stages one and two (with eGFR >59mL/min/1.73 m2) requires estimation of kidney damage for at least three months as defined by structural or functional abnormalities of the kidney, manifested by either:Pathological abnormalities or Markers of kidney damage (including abnormalities in the composition of the blood or urine or abnormalities in imaging tests). Lab Interpretation (test code = 24109-8) Abnormal [facility] WITH [id number] 10:35:13* Test Item Value Reference Range Interpretation Comme nts WBC (test code = 6690-2) 12.35 See_Comment H [Automated Tap[employer]ush[employer] ge] The system which generated this result transmitted reference range: 4.20 - 10.70 10*3/?L. The reference range was not used to interpret this result as normal/abnormal. RBC (test code = 789-8) 3.69 See_Comment L [Automated [employer]ush[employer] ge] The system which generated this result transmitted reference range: 4.26 - 5.52 10*6/?L. The reference range was not used to interpret this result as normal/abnormal. HGB (test code = 718-7) 11.3 g/dL 12.2-16.4 L HCT (test code = 4544-3) 34.7 % 38.4-49.3 L MCV (test code = 787-2) 94.0 fL 81.7-95.6 MCH (test code = 785-6) 30.6 pg 26.1-32.7 MCHC (test code = 786-4) 32.6 g/dL 31.2-35.0 RDW-SD (test code = 14409-9) 45.7 fL 38.5-51.6 RDW-CV (test code = 788-0) 13.4 % 12.1-15.4 PLT (test code = 777-3) 183 See_Comment [Automated [employer]ush[employer] ge] The system which generated this result transmitted reference range: 150 - 328 10*3/?L. The reference range was not used to interpret this result as normal/abnormal. MPV (test code = 71327-9) 11.6 fL 9.8-13.0 NRBC/100 WBC (test code = 6900746830) 0.0 See_Comment [Automated [employer] ssage] The system which generated this result transmitted reference range: 0.0 - 10.0 /100 WBCs. The reference range was not used to interpret this result as normal/abnormal. NRBC x10^3 (test code = 6765044428) See_Comment [Automated messa ge] The system which generated this result transmitted reference range: 10*3/?L. The reference range was not used to interpret this result as normal/abnormal. GRAN MAT (NEUT) % (test code = 770-8) 79.6 % IMM GRAN % (test code = 2117817935) 1.00 % LYMPH % (test code = 736-9) 8.3 % MONO % (test code = 5905-5) 9.8 % EOS % (test code = 713-8) 0.9 % BASO % (test code = 706-2) 0.4 % GRAN MAT x10^3(ANC) (test code = 9354217556) 9.83 10*3/uL 1.99-6.95 H IMM GRAN x10^3 (test code = 8916026724) 0.12 10*3/uL 0.00-0.06 H LYMPH x10^3 (test code = 731-0) 1.03 10*3/uL 1.09-3.23 L MONO x10^3 (test code = 742-7) 1.21 10*3/uL 0.36-1.02 H EOS x10^3 (test code = 711-2) 0.11 10*3/uL 0.06-0.53 BASO x10^3 (test code = 704-7) 0.05 10*3/uL 0.01-0.09 Lab Interpretation (test code = 86186-5) Abnormal [facility] METABOLIC PANEL (NA, K, CL, CO2, GLUCOSE, BUN, CREATININE, CA)2022-07-27 00:58:23* Test Item Value Reference Range Interpretation Comme nts NA (test code = 2421008918) 134 mmol/L 135-145 L K (test code = 0879471029) 3.9 mmol/L 3.5-5.0 Slight hemolysis CL (test code = 0694853838) 102 mmol/L 98-108 CO2 TOTAL (test code = 7848313702) 22 mmol/L 23-31 L AGAP (test code = 6901965596) 10 2-16 BUN (test code = 6497005885) 44 mg/dL 7-23 H Slight hemolysis GLUCOSE (test code = 2501135990) 99 mg/dL 70-110 CREATININE (test code = 5758011671) 2.09 mg/dL 0.60-1.25 H CALCIUM (test code = 0153431221) 7.5 mg/dL 8.6-10.6 L eGFR (test code = 8328203769) 33.5 mL/min/1.73m2 RUBIA (test code = RUBIA) Association of Glomerular Filtration Rate (GFR) and Staging of Kidney Disease* + -----+ --------+ +| GFR (mL/min/1.73 m2) ?| With Kidney Damage ?| ?Without Kidney Damage+ +------- +---- --+| ?>90 ?| ?Stage one ?| ? Normal ?+ ------+ ---------+--------- +| ?60-89 ?| ?Stage two ?| ? Decreased GFR ? + -----+ --------+ +| ?30-59 ?| ?Stage three ?| ? Stage three ? + -----+ --------+ +| ?15-29 ?| ?Stage four ? | ? Stage four ?+ ------+ ---------+--------- +| ?<15 (or dialysis) ? ?| ?Stage five ? | ? Stage five ?+ ------+ ---------+--------- + *Each stage assumes the associated GFR level has been in effect for at least three months. ?Stages 1 to 5, with or without kidney disease, indicate chronic kidney disease. Notes: Determination of stages one and two (with eGFR >59mL/min/1.73 m2) requires estimation of kidney damage for at least three months as defined by structural or functional abnormalities of the kidney, manifested by either:Pathological abnormalities or Markers of kidney damage (including abnormalities in the composition of the blood or urine or abnormalities in imaging tests). Lab Interpretation (test code = 73042-8) Abnormal [facility] WITH [id number] 11:37:56* Test Item Value Reference Range Interpretation Comme nts WBC (test code = 6690-2) 10.96 See_Comment H [Automated [employer]ush[employer] Treatsie] The system which generated this result transmitted reference range: 4.20 - 10.70 10*3/?L. The reference range was not used to interpret this result as normal/abnormal. RBC (test code = 789-8) 4.04 See_Comment L [Automated messa ge] The system which generated this result transmitted reference range: 4.26 - 5.52 10*6/?L. The reference range was not used to interpret this result as normal/abnormal. HGB (test code = 718-7) 12.5 g/dL 12.2-16.4 HCT (test code = 4544-3) 37.0 % 38.4-49.3 L MCV (test code = 787-2) 91.6 fL 81.7-95.6 MCH (test code = 785-6) 30.9 pg 26.1-32.7 MCHC (test code = 786-4) 33.8 g/dL 31.2-35.0 RDW-SD (test code = 81310-4) 45.6 fL 38.5-51.6 RDW-CV (test code = 788-0) 13.6 % 12.1-15.4 PLT (test code = 777-3) 198 See_Comment [Automated messa ge] The system which generated this result transmitted reference range: 150 - 328 10*3/?L. The reference range was not used to interpret this result as normal/abnormal. MPV (test code = 58574-8) 11.7 fL 9.8-13.0 NRBC/100 WBC (test code = 6743300502) 0.0 See_Comment [Automated [employer] ssage] The system which generated this result transmitted reference range: 0.0 - 10.0 /100 WBCs. The reference range was not used to interpret this result as normal/abnormal. NRBC x10^3 (test code = 1848380167) See_Comment [Automated messa ge] The system which generated this result transmitted reference range: 10*3/?L. The reference range was not used to interpret this result as normal/abnormal. GRAN MAT (NEUT) % (test code = 770-8) 75.8 % IMM GRAN % (test code = 1567345889) 0.50 % LYMPH % (test code = 736-9) 9.2 % MONO % (test code = 5905-5) 14.2 % EOS % (test code = 713-8) 0.1 % BASO % (test code = 706-2) 0.2 % GRAN MAT x10^3(ANC) (test code = 5330400345) 8.30 10*3/uL 1.99-6.95 H IMM GRAN x10^3 (test code = 0351132639) 0.06 10*3/uL 0.00-0.06 LYMPH x10^3 (test code = 731-0) 1.01 10*3/uL 1.09-3.23 L MONO x10^3 (test code = 742-7) 1.56 10*3/uL 0.36-1.02 H EOS x10^3 (test code = 711-2) 0.06-0.53 L BASO x10^3 (test code = 704-7) 0.01-0.09 REACT LYMPHS (test code = 0595195713) Rare Lab Interpretation (test code = 42450-0) [facility] 11:27:06* Test Item Value Reference Range Interpretation Comme nts PHOSPHORUS (test code = 6041909109) 5.2 mg/dL 2.5-5.0 H Lab Interpretation (test cod e = 81299-4) [facility]normal [facility] 11:27:06* Test Item Value Reference Range Interpretation Comme nts MAGNESIUM (test code = 0319089234) 2.0 mg/dL 1.7-2.4 Lab Interpretation (test cod e = 83760-2) [facility] (NA, K, CL, CO2, GLUCOSE, BUN, CREATININE, CA)2022-07-26 11:27:06* Test Item Value Reference Range Interpretation Comme nts NA (test code = 1172144452) 134 mmol/L 135-145 L K (test code = 4358466963) 5.1 mmol/L 3.5-5.0 H Slight hemolysis CL (test code = 0197155363) 102 mmol/L 98-108 CO2 TOTAL (test code = 6543491729) 25 mmol/L 23-31 AGAP (test code = 3113809273) 7 2-16 BUN (test code = 2434967641) 38 mg/dL 7-23 H Slight hemolysis GLUCOSE (test code = 8533571545) 121 mg/dL 70-110 H CREATININE (test code = 0029130189) 1.79 mg/dL 0.60-1.25 H CALCIUM (test code = 4407695727) 8.2 mg/dL 8.6-10.6 L eGFR (test code = 0770192327) 40.1 mL/min/1.73m2 RUBIA (test code = RUBIA) Association of Glomerular Filtration Rate (GFR) and Staging of Kidney Disease* + -----+ --------+ +| GFR (mL/min/1.73 m2) ?| With Kidney Damage ?| ?Without Kidney Damage+ +------- +---- --+| ?>90 ?| ?Stage one ?| ? Normal ?+ ------+ ---------+--------- +| ?60-89 ?| ?Stage two ?| ? Decreased GFR ? + -----+ --------+ +| ?30-59 ?| ?Stage three ?| ? Stage three ? + -----+ --------+ +| ?15-29 ?| ?Stage four ? | ? Stage four ?+ ------+ ---------+--------- +| ?<15 (or dialysis) ? ?| ?Stage five ? | ? Stage five ?+ ------+ ---------+--------- + *Each stage assumes the associated GFR level has been in effect for at least three months. ?Stages 1 to 5, with or without kidney disease, indicate chronic kidney disease. Notes: Determination of stages one and two (with eGFR >59mL/min/1.73 m2) requires estimation of kidney damage for at least three months as defined by structural or functional abnormalities of the kidney, manifested by either:Pathological abnormalities or Markers of kidney damage (including abnormalities in the composition of the blood or urine or abnormalities in imaging tests). Lab Interpretation (test code = 57999-8) Abnormal [facility] METABOLIC PANEL (NA, K, CL, CO2, GLUCOSE, BUN, CREATININE, CA)2022-07-26 06:58:18* Test Item Value Reference Range Interpretation Comme nts NA (test code = 4483642398) 135 mmol/L 135-145 K (test code = 6591900625) 4.6 mmol/L 3.5-5.0 CL (test code = 2222496932) 101 mmol/L 98-108 CO2 TOTAL (test code = 3003097603) 26 mmol/L 23-31 AGAP (test code = 2013713337) 8 2-16 BUN (test code = 1130340214) 31 mg/dL 7-23 H GLUCOSE (test code = 5067408592) 132 mg/dL 70-110 H CREATININE (test code = 4644921970) 1.62 mg/dL 0.60-1.25 H CALCIUM (test code = 1372967069) 8.2 mg/dL 8.6-10.6 L eGFR (test code = 7258074403) 45.0 mL/min/1.73m2 RUBIA (test code = RUBIA) Association of Glomerular Filtration Rate (GFR) and Staging of Kidney Disease* + --+ --+ ------+| GFR (mL/min/1.73 m2) ?| With Kidney Damage ?| ?Without Kidney Damage+ --------+ --------+ +| ?>90 ?| ?Stage one ?| ? Normal ?+ ---+ ---+ -------+| ?60-89 ?| ?Stage two ?| ? Decreased GFR ? + --+ --+ ------+| ?30-59 ?| ?Stage three ?| ? Stage three ? + --+ --+ ------+| ?15-29 ?| ?Stage four ? | ? Stage four ?+ ---+ ---+ -------+| ?<15 (or dialysis) ? ?| ?Stage five ? | ? Stage five ?+ ---+ ---+ -------+ *Each stage assumes the associated GFR level has been in effect for at least three months. ?Stages 1 to 5, with or without kidney disease, indicate chronic kidney disease. Notes: Determination of stages one and two (with eGFR >59mL/min/1.73 m2) requires estimation of kidney damage for at least three months as defined by structural or functional abnormalities of the kidney, manifested by either:Pathological abnormalities or Markers of kidney damage (including abnormalities in the composition of the blood or urine or abnormalities in imaging tests). Lab Interpretation (test code = 92826-3) [facility]* Test Item Value Reference Range Interpretation Comme nts MAGNESIUM (test code = 2146389823) 1.9 mg/dL 1.7-2.4 Lab Interpretation (test cod e = 45772-2) Normal [facility] METABOLIC PANEL (NA, K, CL, CO2, GLUCOSE, BUN, CREATININE, CA)2022-07-25 23:05:53* Test Item Value Reference Range Interpretation Comme nts NA (test code = 8154185680) 140 mmol/L 135-145 K (test code = 7701283362) 5.2 mmol/L 3.5-5.0 H CL (test code = 5663180949) 104 mmol/L 98-108 CO2 TOTAL (test code = 7591131011) 26 mmol/L 23-31 AGAP (test code = 4198845965) 10 2-16 BUN (test code = 7751628951) 30 mg/dL 7-23 H GLUCOSE (test code = 0443937616) 131 mg/dL 70-110 H CREATININE (test code = 0252329473) 1.53 mg/dL 0.60-1.25 H CALCIUM (test code = 2878183448) 8.5 mg/dL 8.6-10.6 L eGFR (test code = 5128138910) 48.0 mL/min/1.73m2 RUBIA (test code = RUBIA) Association of Glomerular Filtration Rate (GFR) and Staging of Kidney Disease* + --+ --+ ------+| GFR (mL/min/1.73 m2) ?| With Kidney Damage ?| ?Without Kidney Damage+ --------+ --------+ +| ?>90 ?| ?Stage one ?| ? Normal ?+ ---+ ---+ -------+| ?60-89 ?| ?Stage two ?| ? Decreased GFR ? + --+ --+ ------+| ?30-59 ?| ?Stage three ?| ? Stage three ? + --+ --+ ------+| ?15-29 ?| ?Stage four ? | ? Stage four ?+ ---+ ---+ -------+| ?<15 (or dialysis) ? ?| ?Stage five ? | ? Stage five ?+ ---+ ---+ -------+ *Each stage assumes the associated GFR level has been in effect for at least three months. ?Stages 1 to 5, with or without kidney disease, indicate chronic kidney disease. Notes: Determination of stages one and two (with eGFR >59mL/min/1.73 m2) requires estimation of kidney damage for at least three months as defined by structural or functional abnormalities of the kidney, manifested by either:Pathological abnormalities or Markers of kidney damage (including abnormalities in the composition of the blood or urine or abnormalities in imaging tests). Lab Interpretation (test code = 11401-7) Abnormal [facility] WITHOUT [id number] 22:49:31* Test Item Value Reference Range Interpretation Comme nts WBC (test code = 6690-2) 18.03 See_Comment H [Automated message] The system which generated this result transmitted reference range: 4.20 - 10.70 10*3/?L. The reference range was not used to interpret this result as normal/abnormal. RBC (test code = 789-8) 4.68 See_Comment [Automated message] The system which generated this result transmitted reference range: 4.26 - 5.52 10*6/?L. The reference range was not used to interpret this result as normal/abnormal. HGB (test code = 718-7) 14.4 g/dL 12.2-16.4 HCT (test code = 4544-3) 43.9 % 38.4-49.3 MCH (test code = 785-6) 30.8 pg 26.1-32.7 MCV (test code = 787-2) 93.8 fL 81.7-95.6 MCHC (test code = 786-4) 32.8 g/dL 31.2-35.0 PLT (test code = 777-3) 215 See_Comment [Automated message] The system which generated this result transmitted reference range: 150 - 328 10*3/?L. The reference range was not used to interpret this result as normal/abnormal. MPV (test code = 50074-3) 11.0 fL 9.8-13.0 RDW-CV (test code = 788-0) 13.5 % 12.1-15.4 RDW-SD (test code = 38421-3) 45.8 fL 38.5-51.6 NRBC x10^3 (test code = 7917263744) See_Comment [Automated messa ge] The system which generated this result transmitted reference range: 10*3/?L. The reference range was not used to interpret this result as normal/abnormal. NRBC/100 WBC (test code = 4167916097) 0.0 See_Comment [Automated messa ge] The system which generated this result transmitted reference range: 0.0 - 10.0 /100 WBCs. The reference range was not used to interpret this result as normal/abnormal. IPF % (test code = 9342827448) Lab Interpretation (test code = 16466-3) [facility] - The Type and Screen expires at midnight on the 3rd day after it was drawn. A current Type and Screen is required when RBCs are requested. For all other blood products, a Type and Scr een performed during the current hospitalizati...2022-07-25 15:32:27* Test Item Value Reference Range Interpretation Comme nts ABO & RH (test code = 20) O POSITIVE Performed at [facility] Laboratory Services [facility] Blood [address] Free: [phone] No. [id number] IAT (test code = 1185) Negative Performed at [facility] Laboratory [facility] Blood [address] Free: [phone] No. [id number] [facility] Panel (NA, K, CL, CO2, GLUCOSE, BUN, CREATININE, CA)2022-07-25 15:17:55* Test Item Value Reference Range Interpretation Comme nts NA (test code = 2375734191) 139 mmol/L 135-145 K (test code = 1705614112) 5.2 mmol/L 3.5-5.0 H CL (test code = 7723122044) 104 mmol/L 98-108 CO2 TOTAL (test code = 0272928760) 26 mmol/L 23-31 AGAP (test code = 8980292910) 9 2-16 BUN (test code = 2861617009) 26 mg/dL 7-23 H GLUCOSE (test code = 2467431842) 151 mg/dL 70-110 H CREATININE (test code = 8776955252) 1.31 mg/dL 0.60-1.25 H CALCIUM (test code = 2278962482) 9.0 mg/dL 8.6-10.6 eGFR (test code = 5560580985) 57.5 mL/min/1.73m2 RUBIA (test code = RUBIA) Association of Glomerular Filtration Rate (GFR) and Staging of Kidney Disease* + --+ --+ ------+| GFR (mL/min/1.73 m2) ?| With Kidney Damage ?| ?Without Kidney Damage+ --------+ --------+ +| ?>90 ?| ?Stage one ?| ? Normal ?+ ---+ ---+ -------+| ?60-89 ?| ?Stage two ?| ? Decreased GFR ? + --+ --+ ------+| ?30-59 ?| ?Stage three ?| ? Stage three ? + --+ --+ ------+| ?15-29 ?| ?Stage four ? | ? Stage four ?+ ---+ ---+ -------+| ?<15 (or dialysis) ? ?| ?Stage five ? | ? Stage five ?+ ---+ ---+ -------+ *Each stage assumes the associated GFR level has been in effect for at least three months. ?Stages 1 to 5, with or without kidney disease, indicate chronic kidney disease. Notes: Determination of stages one and two (with eGFR >59mL/min/1.73 m2) requires estimation of kidney damage for at least three months as defined by structural or functional abnormalities of the kidney, manifested by either:Pathological abnormalities or Markers of kidney damage (including abnormalities in the composition of the blood or urine or abnormalities in imaging tests). Lab Interpretation (test code = 27848-8) [facility]normal [facility]villeProthrom[facility] Time / [id number] 15:13:32* Test Item Value Reference Range Interpretation Tavo WORKMAN PATIENT (test code = 5964-2) 16.7 See_Comment H [Automated TapRusha Treatsie] The system which generated this result transmitted reference range: 10.1 - 12.6 Seconds. The reference range was not used to interpret this result as normal/abnormal. INR (test code = 6301-6) 1.5 Normal INR <1.1; Warfarin Therapeutic range 2.0 to 3.0 or 2.5 to 3.5, depending upon the indications. Lab Interpretation (test code = 68139-7) Abnormal [facility]villeaPTT2023-03-07 15:13:32* Test Item Value Reference Range Interpretation Comme [facility] APTT Patient (test code = 3173-2) 31 See_Comment [Automated messa ge] The system which generated this result transmitted reference range: 26 - 36 Seconds. The reference range was not used to interpret this result as normal/abnormal. Lab Interpretation (test code = 48245-4) Normal [facility]villeProfile / [id number] 15:06:50* Test Item Value Reference Range Interpretation Comme [facility] WBC (test code = 6690-2) 17.49 See_Comment H [Automated message] The system which generated this result transmitted reference range: 4.20 - 10.70 10*3/?L. The reference range was not used to interpret this result as normal/abnormal. RBC (test code = 789-8) 5.25 See_Comment [Automated message] The system which generated this result transmitted reference range: 4.26 - 5.52 10*6/?L. The reference range was not used to interpret this result as normal/abnormal. HGB (test code = 718-7) 16.2 g/dL 12.2-16.4 HCT (test code = 4544-3) 47.3 % 38.4-49.3 MCH (test code = 785-6) 30.9 pg 26.1-32.7 MCV (test code = 787-2) 90.1 fL 81.7-95.6 MCHC (test code = 786-4) 34.2 g/dL 31.2-35.0 PLT (test code = 777-3) 273 See_Comment [Automated message] The system which generated this result transmitted reference range: 150 - 328 10*3/?L. The reference range was not used to interpret this result as normal/abnormal. MPV (test code = 61797-3) 10.8 fL 9.8-13.0 RDW-CV (test code = 788-0) 13.4 % 12.1-15.4 RDW-SD (test code = 27605-7) 43.9 fL 38.5-51.6 NRBC x10^3 (test code = 5933714404) See_Comment [Automated TapRusha Treatsie] The system which generated this result transmitted reference range: 10*3/?L. The reference range was not used to interpret this result as normal/abnormal. NRBC/100 WBC (test code = 6907617924) 0.0 See_Comment [Automated TapRusha Treatsie] The system which generated this result transmitted reference range: 0.0 - 10.0 /100 WBCs. The reference range was not used to interpret this result as normal/abnormal. IPF % (test code = 9013817966) Lab Interpretation (test code = 28202-3) Abnormal [facility]villeCOMPREHENSIVE METABOLIC [id number] 00:00:00* Test Item Value Reference Range Interpretation Comme nts GLUCOSE (test code = 2217) 112 MG/DL BUN (test code = 2208) 11 MG/DL CREATININE (test code = 2214) 0.93 MG/DL eGFR AMER. (test cod e = 61208) 114 ML/MIN/1.73 eGFR NON- AMER. (test code = 77301) 99 ML/MIN/1.73 CALC BUN/CREAT (test code = 2235) 12 RATIO SODIUM (test code = 2231) 141 MEQ/L POTASSIUM (test code = 2228) 3.9 MEQ/L CHLORIDE (test code = 2215) 103 MEQ/L CARBON DIOXIDE (test code = 2206) 23 MEQ/L CALCIUM (test code = 2209) 8.9 MG/DL PROTEIN, TOTAL (test code = 2229) 6.2 G/DL ALBUMIN (test code = 2201) 4.2 G/DL CALC GLOBULIN (test code = 2240) 2.0 G/DL CALC A/G RATIO (test code = 2234) 2.1 RATIO BILIRUBIN, TOTAL (test code = 2207) 0.3 MG/DL ALKALINE PHOSPHATASE (test code = 2204) 77 U/L AST (test code = 2218) 18 U/L ALT (test code = 2219) 18 U/L Mayito Kari AustinLIPID [id number] 00:00:00* Test Item Value Reference Range Interpretation Comme nts CHOLESTEROL (test code = 2210) 166 MG/DL TRIGLYCERIDES (test code = 2232) 185 MG/DL HDL CHOLESTEROL (test code = 2220) 25 MG/DL CALC LDL CHOL (test code = 2237) 104 MG/DL RISK RATIO LDL/HDL (test cod e = 2238) 4.16 RATIO [facility] [id number] 00:00:00* Test Item Value Reference Range Interpretation Comme nts WBC (test code = 1001) 7.6 K/UL RBC (test code = 1002) 2.70 M/UL HEMOGLOBIN (test code = 1003) 7.5 G/DL HEMATOCRIT (test code = 1004) 23.3 % MCV (test code = 1005) 86.3 fL MCH (test code = 1006) 27.8 PG MCHC (test code = 1007) 32.2 G/DL RDW (test code = 1038) 14.9 % NEUTROPHILS (test code = 1008) 69 % LYMPHOCYTES (test code = 1010) 22 % MONOCYTES (test code = 1011) 6 % EOSINOPHILS (test code = 1012) 2 % BASOPHILS (test code = 1013) 1 % PLATELET COUNT (test code = 1015) 205 K/UL COMMENTS (test code = 1016) (NOTE) Mayito FountainHEMOGLOBIN [id number] 00:00:00* Test Item Value Reference Range Interpretation Comme nts HEMOGLOBIN A1c (test code = 11387) 5.8 % Mayito FountainTHYROID II PROFILE (T3U, T4, T7, TSH)2015-11-05 00:00:00* Test Item Value Reference Range Interpretation Comme nts T3 UPTAKE (test code = 2817) 28.2 % T4 (THYROXINE) (test code = 2819) 6.1 UG/DL CALCULATED T7 (FTI) (test co de = 2820) 1.72 TSH (test code = 2821) 1.0 UIU/ML Mayito FountainCOMPREHENSIVE METABOLIC [id number] 00:00:00* Test Item Value Reference Range Interpretation Comme nts GLUCOSE (test code = 2217) 112 MG/DL BUN (test code = 2208) 11 MG/DL CREATININE (test code = 2214) 0.93 MG/DL eGFR AMER. (test cod e = 98656) 114 ML/MIN/1.73 eGFR NON- AMER. (test code = 48983) 99 ML/MIN/1.73 CALC BUN/CREAT (test code = 2235) 12 RATIO SODIUM (test code = 2231) 141 MEQ/L POTASSIUM (test code = 2228) 3.9 MEQ/L CHLORIDE (test code = 2215) 103 MEQ/L CARBON DIOXIDE (test code = 2206) 23 MEQ/L CALCIUM (test code = 2209) 8.9 MG/DL PROTEIN, TOTAL (test code = 2229) 6.2 G/DL ALBUMIN (test code = 2201) 4.2 G/DL CALC GLOBULIN (test code = 2240) 2.0 G/DL CALC A/G RATIO (test code = 2234) 2.1 RATIO BILIRUBIN, TOTAL (test code = 2207) 0.3 MG/DL ALKALINE PHOSPHATASE (test code = 2204) 77 U/L AST (test code = 2218) 18 U/L ALT (test code = 2219) 18 U/L Mayito FountainLIPID [id number] 00:00:00* Test Item Value Reference Range Interpretation Comme nts CHOLESTEROL (test code = 2210) 166 MG/DL TRIGLYCERIDES (test code = 2232) 185 MG/DL HDL CHOLESTEROL (test code = 2220) 25 MG/DL CALC LDL CHOL (test code = 2237) 104 MG/DL RISK RATIO LDL/HDL (test cod e = 2238) 4.16 RATIO Mayito Pierce АлександрCBC W/AUTO [id number] 00:00:00* Test Item Value Reference Range Interpretation Comme nts WBC (test code = 1001) 7.6 K/UL RBC (test code = 1002) 2.70 M/UL HEMOGLOBIN (test code = 1003) 7.5 G/DL HEMATOCRIT (test code = 1004) 23.3 % MCV (test code = 1005) 86.3 fL MCH (test code = 1006) 27.8 PG MCHC (test code = 1007) 32.2 G/DL RDW (test code = 1038) 14.9 % NEUTROPHILS (test code = 1008) 69 % LYMPHOCYTES (test code = 1010) 22 % MONOCYTES (test code = 1011) 6 % EOSINOPHILS (test code = 1012) 2 % BASOPHILS (test code = 1013) 1 % PLATELET COUNT (test code = 1015) 205 K/UL COMMENTS (test code = 1016) (NOTE) Mayito FountainHEMOGLOBIN [id number] 00:00:00* Test Item Value Reference Range Interpretation Comme nts HEMOGLOBIN A1c (test code = 15339) 5.8 % Mayito FountainTHYROID II PROFILE (T3U, T4, T7, TSH)2015-11-05 00:00:00* Test Item Value Reference Range Interpretation Comme nts T3 UPTAKE (test code = 2817) 28.2 % T4 (THYROXINE) (test code = 2819) 6.1 UG/DL CALCULATED T7 (FTI) (test co de = 2820) 1.72 TSH (test code = 2821) 1.0 UIU/ML Mayito FountainCOMPREHENSIVE METABOLIC [id number] 00:00:00* Test Item Value Reference Range Interpretation Comme nts GLUCOSE (test code = 2217) 112 MG/DL BUN (test code = 2208) 11 MG/DL CREATININE (test code = 2214) 0.93 MG/DL eGFR AMER. (test cod e = 91164) 114 ML/MIN/1.73 eGFR NON- AMER. (test code = 15859) 99 ML/MIN/1.73 CALC BUN/CREAT (test code = 2235) 12 RATIO SODIUM (test code = 2231) 141 MEQ/L POTASSIUM (test code = 2228) 3.9 MEQ/L CHLORIDE (test code = 2215) 103 MEQ/L CARBON DIOXIDE (test code = 2206) 23 MEQ/L CALCIUM (test code = 2209) 8.9 MG/DL PROTEIN, TOTAL (test code = 2229) 6.2 G/DL ALBUMIN (test code = 2201) 4.2 G/DL CALC GLOBULIN (test code = 2240) 2.0 G/DL CALC A/G RATIO (test code = 2234) 2.1 RATIO BILIRUBIN, TOTAL (test code = 2207) 0.3 MG/DL ALKALINE PHOSPHATASE (test code = 2204) 77 U/L AST (test code = 2218) 18 U/L ALT (test code = 2219) 18 U/L Mayito FountainLIPID [id number] 00:00:00* Test Item Value Reference Range Interpretation Comme nts CHOLESTEROL (test code = 2210) 166 MG/DL TRIGLYCERIDES (test code = 2232) 185 MG/DL HDL CHOLESTEROL (test code = 2220) 25 MG/DL CALC LDL CHOL (test code = 2237) 104 MG/DL RISK RATIO LDL/HDL (test cod e = 2238) 4.16 RATIO [facility] [id number] 00:00:00* Test Item Value Reference Range Interpretation Comme nts WBC (test code = 1001) 7.6 K/UL RBC (test code = 1002) 2.70 M/UL HEMOGLOBIN (test code = 1003) 7.5 G/DL HEMATOCRIT (test code = 1004) 23.3 % MCV (test code = 1005) 86.3 fL MCH (test code = 1006) 27.8 PG MCHC (test code = 1007) 32.2 G/DL RDW (test code = 1038) 14.9 % NEUTROPHILS (test code = 1008) 69 % LYMPHOCYTES (test code = 1010) 22 % MONOCYTES (test code = 1011) 6 % EOSINOPHILS (test code = 1012) 2 % BASOPHILS (test code = 1013) 1 % PLATELET COUNT (test code = 1015) 205 K/UL COMMENTS (test code = 1016) (NOTE) Mayito FountainHEMOGLOBIN [id number] 00:00:00* Test Item Value Reference Range Interpretation Comme nts HEMOGLOBIN A1c (test code = 52781) 5.8 % Mayito Kari АлександрTHYROID II PROFILE (T3U, T4, T7, TSH)2015-11-05 00:00:00* Test Item Value Reference Range Interpretation Comme nts T3 UPTAKE (test code = 2817) 28.2 % T4 (THYROXINE) (test code = 2819) 6.1 UG/DL CALCULATED T7 (FTI) (test co de = 2820) 1.72 TSH (test code = 2821) 1.0 UIU/ML Mayito Cavanaugh Date/Time Note Provider Source 2023-10-15 00:00:00 hsKiYe8b+olAkiykiPON YBFoXScZzTVS7X/V3 [id number] T00:00:00+ + +| Plan Activity | Plan Date |+ + +| complete blood panel -CBC ,CMP, TSH, HgBA1 C , lipids | 2015-11-06 || 2. EKG now - Normal sinus rhythm | || 3. Results will be called and addressed | || 4.RTC for ay concerns and questions | |+ + +| 1. EKG abd CBC today | 2015-11-06 || 2. Advised on fall precautions and safety | || 3. plenty of fluids and eat healthy diet | || 4.Will call with the results | |+ + +| increase excercise to 3-5 times a week for at least 45 minutes | 2015-11-06 || high fiber low caloric diet, reduce carbohydrates, increase vegetables and 5-6 | || healthy meals per day. 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 | || DASH diet, Sodium reduction <2.4 g/day | || Weight reduction, Exercise 150 mins/wk | || Limit alcohol and caffeine consumption, Smoking cessation | || f.u in 3 months | |+ + +| increase physical activity | 2022-08-11 |+ + +| Recommend daily physical activity including cardiovascular and strengthening | 2022-08-11 || exercises. | |+ + +| Recommend diet high in fruits and vegetables, lean meats, low in fat and | 2022-08-11 || processed sugars. Monitor portion size | |+ + +| CLONIDINE 0.1 MG X 1 IN CLINIC; REPEAT BP IN 20 MINUTES 8:50 AM | 2022-08-11 || PT SIGNED AMA FORM - DECLINED GOING TO ER | || CMP | || UA | || LIPID-nf | || EKG- atrial fibrillation with R VR; moderate intraventricular conduction delay; | || non specific t wave abnormality | || RTC TOMORROW FOR REPEAT EKG AND BP | || IF SYMPTOMS WORSEN, PT IS TO GO TO ER. | || | || | || refill metoprolol 50 mg BID | || refill amiodarone 200 mg daily | || refill amlodipine 10 mg | || dicussed importance of monitor BP and taking BP meds | || f.u in 4 weeks with blood pressure log | |+ + +| mild displaced fractures on right L2-L4 transverse process | 2022-08-11 || f/u with ortho | |+ + +| closed displaced fracture of acromial end of right clavicle | 2022-08-11 || f/u with ortho | |+ + +| closed traumatic fracture of ribs of right side with pneumothorax 3rd right rib | 2022-08-11 || displaced | || f/u with ortho | |+ + +| removed 13 stables and one suture. 8 suture removal from right forehead and 5 | 2022-08-11 || suture removal from right scalp. there are a few more sutures not able to | || removed due to hair and scab on the scalp. advise to f/u | |+ + +| CBC | 2022-08-25 |+ + +| increase physical activity | 2022-09-29 |+ + +| pt declined er registrar referral. [facility] does not have any form of income | 2022-12-27 || right now. does not even have money to pay for medications. discussed the | || importance of taking all BP meds as prescribed | |+ + +| long discussion on medication compliances | 2022-12-27 |+ + +| A1C | 2023-10-03 |+ + +| 3 CARDIAC STENTS CAD | 2023-10-03 || PLAVIX 75 MG QD | |+ + +| monitor for now | 2023-10-04 |+ + +| INCREASE LISINOPRIL 20 MG QD X 14 DAYS | 2023-10-04 || RTC in 1-2 weeks to recheck blood pressure | || Continue all other a fib meds | || metoprolol 50 mg BID | || amiodarone 200 mg daily | || amlodipine 10 mg | || dicussed importance of monitor BP and taking BP meds | |+ + +| start lisinopril 10 mg qd for bp control - tachycardia resolved | 2023-10-04 || metoprolol 50 mg BID | || amiodarone 200 mg daily | || amlodipine 10 mg | || dicussed importance of monitor BP and taking BP meds | |+ + +| D DIMER | 2023-10-15 || URIC ACID | || ANTI CCP | || RF | || Signed AMA form - refuses to go to ER to rule out DVT | || REFER TO [facility] DR JAMIR GAR - Venous US of right lower ext | |+ + +| D DIMER | 2023-10-15 || URIC ACID | || ANTI CCP | || RF | || Signed AMA form - refuses to go to ER to rule out DVT | || [facility] JAMIR GAR - Venous US of right lower ext | |+ + +61195-2Kjgf of TreatmentHE[facility]PAR[facility]-[id number] for patient [id number] Section NarrativeNARRATIVEFormatted C-CDA narrative textSFAStmamta Pereira [facility]2024-05-27T00:00:00 Mayito Pereira [facility] 2023-10-04 00:00:00 [id number] [id number] kniKI[id number] T00:00:00+ + +| Plan Activity | Plan Date |+ + +| complete blood panel -CBC ,CMP, TSH, HgBA1 C , lipids | 2015-11-06 || 2. EKG now - Normal sinus rhythm | || 3. Results will be called and addressed | || 4.RTC for ay concerns and questions | |+ + +| 1. EKG abd CBC today | 2015-11-06 || 2. Advised on fall precautions and safety | || 3. plenty of fluids and eat healthy diet | || 4.Will call with the results | |+ + +| increase excercise to 3-5 times a week for at least 45 minutes | 2015-11-06 || high fiber low caloric diet, reduce carbohydrates, increase vegetables and 5-6 | || healthy meals per day. 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 | || DASH diet, Sodium reduction <2.4 g/day | || Weight reduction, Exercise 150 mins/wk | || Limit alcohol and caffeine consumption, Smoking cessation | || f.u in 3 months | |+ + +| increase physical activity | 2022-08-11 |+ + +| Recommend daily physical activity including cardiovascular and strengthening | 2022-08-11 || exercises. | |+ + +| Recommend diet high in fruits and vegetables, lean meats, low in fat and | 2022-08-11 || processed sugars. Monitor portion size | |+ + +| CLONIDINE 0.1 MG X 1 IN CLINIC; REPEAT BP IN 20 MINUTES 8:50 AM | 2022-08-11 || PT SIGNED AMA FORM - DECLINED GOING TO ER | || CMP | || UA | || LIPID-nf | || EKG- atrial fibrillation with R VR; moderate intraventricular conduction delay; | || non specific t wave abnormality | || RTC TOMORROW FOR REPEAT EKG AND BP | || IF SYMPTOMS WORSEN, PT IS TO GO TO ER. | || | || | || refill metoprolol 50 mg BID | || refill amiodarone 200 mg daily | || refill amlodipine 10 mg | || dicussed importance of monitor BP and taking BP meds | || f.u in 4 weeks with blood pressure log | |+ + +| mild displaced fractures on right L2-L4 transverse process | 2022-08-11 || f/u with ortho | |+ + +| closed displaced fracture of acromial end of right clavicle | 2022-08-11 || f/u with ortho | |+ + +| closed traumatic fracture of ribs of right side with pneumothorax 3rd right rib | 2022-08-11 || displaced | || f/u with ortho | |+ + +| removed 13 stables and one suture. 8 suture removal from right forehead and 5 | 2022-08-11 || suture removal from right scalp. there are a few more sutures not able to | || removed due to hair and scab on the scalp. advise to f/u | |+ + +| CBC | 2022-08-25 |+ + +| increase physical activity | 2022-09-29 |+ + +| pt declined er registrar referral. [facility] does not have any form of income | 2022-12-27 || right now. does not even have money to pay for medications. discussed the | || importance of taking all BP meds as prescribed | |+ + +| long discussion on medication compliances | 2022-12-27 |+ + +| A1C | 2023-10-03 |+ + +| 3 CARDIAC STENTS CAD | 2023-10-03 || PLAVIX 75 MG QD | |+ + +| monitor for now | 2023-10-04 |+ + +| START LISINOPRIL 10 MG QD X 14 DAYS | 2023-10-04 || RTC in 1-2 weeks to recheck blood pressure | || Continue all other a fib meds | || metoprolol 50 mg BID | || amiodarone 200 mg daily | || amlodipine 10 mg | || dicussed importance of monitor BP and taking BP meds | |+ + +| start lisinopril 10 mg qd for bp control - tachycardia resolved | 2023-10-04 || metoprolol 50 mg BID | || amiodarone 200 mg daily | || amlodipine 10 mg | || dicussed importance of monitor BP and taking BP meds | |+ + +03536-2Ugfl of TreatmentLNCARE PLANTXTS|SOC-[id number] for patient opwmQxddpvaAkxwoyuuiOSIWj32 Section NarrativeNARRATIVEFormatted C-CDA narrative textSTsaile Health Centerdalemarko Pereira [facility]2024-05-16T00:00:00 [facility] 00:00:00 OgoKMmrCyc4r8lpa6Md1 [id number] oIMbeBGOTnj3aYMaJH3KPS+NIku0767-92-11 T00:00:00+ + +| Plan Activity | Plan Date |+ + +| complete blood panel -CBC ,CMP, TSH, HgBA1 C , lipids | 2015-11-06 || 2. EKG now - Normal sinus rhythm | || 3. Results will be called and addressed | || 4.RTC for ay concerns and questions | |+ + +| 1. EKG abd CBC today | 2015-11-06 || 2. Advised on fall precautions and safety | || 3. plenty of fluids and eat healthy diet | || 4.Will call with the results | |+ + +| increase excercise to 3-5 times a week for at least 45 minutes | 2015-11-06 || high fiber low caloric diet, reduce carbohydrates, increase vegetables and 5-6 | || healthy meals per day. 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 | || DASH diet, Sodium reduction <2.4 g/day | || Weight reduction, Exercise 150 mins/wk | || Limit alcohol and caffeine consumption, Smoking cessation | || f.u in 3 months | |+ + +| increase physical activity | 2022-08-11 |+ + +| Recommend daily physical activity including cardiovascular and strengthening | 2022-08-11 || exercises. | |+ + +| Recommend diet high in fruits and vegetables, lean meats, low in fat and | 2022-08-11 || processed sugars. Monitor portion size | |+ + +| CLONIDINE 0.1 MG X 1 IN CLINIC; REPEAT BP IN 20 MINUTES 8:50 AM | 2022-08-11 || PT SIGNED AMA FORM - DECLINED GOING TO ER | || CMP | || UA | || LIPID-nf | || EKG- atrial fibrillation with R VR; moderate intraventricular conduction delay; | || non specific t wave abnormality | || RTC TOMORROW FOR REPEAT EKG AND BP | || IF SYMPTOMS WORSEN, PT IS TO GO TO ER. | || | || | || refill metoprolol 50 mg BID | || refill amiodarone 200 mg daily | || refill amlodipine 10 mg | || dicussed importance of monitor BP and taking BP meds | || f.u in 4 weeks with blood pressure log | |+ + +| mild displaced fractures on right L2-L4 transverse process | 2022-08-11 || f/u with ortho | |+ + +| closed displaced fracture of acromial end of right clavicle | 2022-08-11 || f/u with ortho | |+ + +| closed traumatic fracture of ribs of right side with pneumothorax 3rd right rib | 2022-08-11 || displaced | || f/u with ortho | |+ + +| removed 13 stables and one suture. 8 suture removal from right forehead and 5 | 2022-08-11 || suture removal from right scalp. there are a few more sutures not able to | || removed due to hair and scab on the scalp. advise to f/u | |+ + +| CBC | 2022-08-25 |+ + +| increase physical activity | 2022-09-29 |+ + +| pt declined er registrar referral. [facility] does not have any form of income | 2022-12-27 || right now. does not even have money to pay for medications. discussed the | || importance of taking all BP meds as prescribed | |+ + +| long discussion on medication compliances | 2022-12-27 |+ + +| A1C | 2023-10-03 |+ + +| 3 CARDIAC STENTS CAD | 2023-10-03 || PLAVIX 75 MG QD | |+ + +21625-5Hgiu of TreatmentLNCARE PLANTXTSFA|[id number] for patient xtdsPdlpmlnIeqtiftkqZOHWh25 Section NarrativeNARRATIVEFormatted C-CDA narrative textSFAStmamta Pereira [facility]2024-05-15T00:00:00 Mayito Pereira [facility]"
--- NOTE | 2023-10-17 10:52 | RAD REPORT ---
EXAM DESCRIPTION: US - Extremity Venous Uni Ltd - 10/17/2023 10:38 am CLINICAL HISTORY: SWELLING Leg swelling and edema. COMPARISON: No comparisons FINDINGS: Right lower extremity venous system was interrogated with Doppler technique. Normal flow, compressibility and augmentation was noted. There is no DVT present. IMPRESSION: No evidence of right lower extremity deep venous thrombosis.
--- NOTE | 2023-10-17 10:58 | ER ---
Nurse's Notes [facility] Name: Nghia Meredith Jr Age: 52 yrs Sex: Male : 1970 Arrival Date: 10/17/2023 Time: 08:44 Bed 9 Private MD: Diagnosis: Knee swelling, unilateral peripheral edema Presentation: 10/16 08:51 Chief complaint: Patient states: right knee swelling since last week, and now the iw swelling is in the ankle, getting worse, was sent from his doctor for US. Coronavirus screen: At this time, the client does not indicate any symptoms associated with coronavirus-19. Ebola Screen: Patient negative for fever greater than or equal to 101.5 degrees Fahrenheit, and additional compatible Ebola Virus Disease symptoms Patient denies exposure to infectious person. Patient denies travel to an Ebola-affected area in the 21 days before illness onset. Risk Assessment: Do you want to hurt yourself or someone else? Patient reports no desire to harm self or others. Onset of symptoms was October 10, 2023. 08:51 Method Of Arrival: Ambulatory iw 08:51 Acuity: LISETTE 3 iw 08:51 Initial Sepsis Screen: Does the patient meet any 2 criteria? No. Patient's initial iw sepsis screen is negative. Does the patient have a suspected source of infection? No. Patient's initial sepsis screen is negative. Historical: - Allergies: 08:54 No Known Allergies; iw - PMHx: 08:52 CAD; Hypertensive disorder; Hypertensive disorder; PUD; iw - PSHx: 08:52 cardiac stents; iw - Immunization history:: Adult Immunizations not up to date. - Infectious Disease History:: Denies. - Social history:: Smoking status: Patient/guardian denies using tobacco, but has a distant history of tobacco abuse. Screenin:16 [facility] ED Fall Risk Assessment (Adult) History of falling in the last 3 months, iw including since admission No falls in past 3 months (0 pts) Confusion or Disorientation No (0 pts) Intoxicated or Sedated No (0 pts) Impaired Gait No (0 pts) Mobility Assist Device Used No (0 pt) Altered Elimination No (0 pt) Score/Fall Risk Level 0 - 2 = Low Risk Oriented to surroundings. Abuse screen: Denies threats or abuse. Denies injuries from another. Nutritional screening: No deficits noted. Tuberculosis screening: No symptoms or risk factors identified. Assessment: 11:16 Reassessment: Patient appears in no apparent distress at this time. Patient and/or iw family updated on plan of care and expected duration. Pain level reassessed. Patient is alert, oriented x 3, equal unlabored respirations, skin warm/dry/pink. Vital Signs: 08:51 BP 158 / 92; Pulse 90; Resp 18; Temp 97.6; Pulse Ox 100% ; Weight 112.49 kg; Height 5 iw ft. 10 in. ; Pain 10/10; 08:51 Body Mass Index 35.58 (112.49 kg, 177.8 cm) iw 08:51 Pain Scale: Adult iw ED Course: 08:49 Patient arrived in ED. iw 08:52 Triage completed. iw 09:03 Allison Eng MD is Attending Physician. sp3 10:00 Arm band placed on. iw 10:40 US Extremity Venous Unilateral Ltd In Process Unspecified. EDMS 11:10 Avril Bowman RN is Primary Nurse. iw 11:16 No provider procedures requiring assistance completed. Patient did not have IV access iw during this emergency room visit. Leandro wrap to right ankle. Administered Medications: No medications were administered Outcome: 10:58 Discharge ordered by . sp3 11:16 Discharged to home ambulatory, iw 11:16 Condition: good 11:16 Discharge instructions given to patient, Instructed on discharge instructions, follow up and referral plans. Demonstrated understanding of instructions, follow-up care, medications, Prescriptions given X 1, 11:17 Patient left the ED. iw Signatures: Dispatcher [employer] EDMS Avril Bowman RN RN iw Allison Eng MD MD sp3 Corrections: (The following items were deleted from the chart) 08:54 08:51 Pulse 90bpm; Resp 18bpm; Pulse Ox 100%; Temp 97.6F; Pain 10/10, Adult; iw iw 08:54 08:51 Pulse 90bpm; Resp 18bpm; Pulse Ox 100%; Temp 97.6F; 112.49 kg; Height 5 ft. 10 iw in.; BMI: 35.5; Pain 10/10, Adult; iw
--- NOTE | 2023-10-17 10:58 | EDPHYS ---
Physician Documentation [facility] Name: Nghia Meredith Jr Age: 52 yrs Sex: Male : 1970 Arrival Date: 10/17/2023 Time: 08:44 Bed 9 Private MD: ED Physician Allison Eng HPI: 10/16 09:35 This 52 yrs old Male presents to ER via Ambulatory with complaints of Leg Swelling. sp3 09:35 52-year-old male with history of CAD, hypertension on aspirin and Plavix now presents sp3 to the ED with chief complaint right lower extremity swelling. Patient was seen at the local clinic who referred him here for ultrasound right lower extremity assessing for potential DVT versus inflammatory joint related swelling. Patient has had no recent prolonged periods of immobilization including travel. He has been taking his antiplatelet agents. No prior history of DVT or PE or other coagulopathy. He denies any chest pain, shortness of breath, back pain, syncope, near syncope, or any other concerning signs or symptoms at this time. He also denies injury.. Historical: - Allergies: 08:54 No Known Allergies; iw - PMHx: 08:52 CAD; Hypertensive disorder; Hypertensive disorder; PUD; iw - PSHx: 08:52 cardiac stents; iw - Immunization history:: Adult Immunizations not up to date. - Infectious Disease History:: Denies. - Social history:: Smoking status: Patient/guardian denies using tobacco, but has a distant history of tobacco abuse. ROS: 09:36 Constitutional: Negative for fever, chills, and weight loss, Eyes: Negative for injury, sp3 pain, redness, and discharge, ENT: Negative for injury, pain, and discharge, Neck: Negative for injury, pain, and swelling, Cardiovascular: Negative for chest pain, palpitations, and edema, Respiratory: Negative for shortness of breath, cough, wheezing, and pleuritic chest pain, Abdomen/GI: Negative for abdominal pain, nausea, vomiting, diarrhea, and constipation, Back: Negative for injury and pain, Skin: Negative for injury, rash, and discoloration, Neuro: Negative for headache, weakness, numbness, tingling, and seizure, Psych: Negative for depression, anxiety, suicide ideation, homicidal ideation, and hallucinations, Allergy/Immunology: Negative for hives, rash, and allergies, Endocrine: Negative for neck swelling, polydipsia, polyuria, polyphagia, and marked weight changes, Hematologic/Lymphatic: Negative for swollen nodes, abnormal bleeding, and unusual bruising, 09:36 All other systems are negative, Exam: 09:36 Constitutional: This is a well developed, well nourished patient who is awake, alert, sp3 and in no acute distress. Head/Face: Normocephalic, atraumatic. Eyes: Pupils equal round and reactive to light, extra-ocular motions intact. Lids and lashes normal. Conjunctiva and sclera are non-icteric and not injected. Cornea within normal limits. Periorbital areas with no swelling, redness, or edema. Neck: Trachea midline, no thyromegaly or masses palpated, and no cervical lymphadenopathy. Supple, full range of motion without nuchal rigidity, or vertebral point tenderness. No Meningismus. Chest/axilla: Normal chest wall appearance and motion. Nontender with no deformity. No lesions are appreciated. Cardiovascular: Regular rate and rhythm with a normal S1 and S2. No gallops, murmurs, or rubs. Normal PMI, no JVD. No pulse deficits. Respiratory: Lungs have equal breath sounds bilaterally, clear to auscultation and percussion. No rales, rhonchi or wheezes noted. No increased work of breathing, no retractions or nasal flaring. Abdomen/GI: Soft, non-tender, with normal bowel sounds. No distension or tympany. No guarding or rebound. No evidence of tenderness throughout. Back: No spinal tenderness. No costovertebral tenderness. Full range of motion. Skin: Warm, dry with normal turgor. Normal color with no rashes, no lesions, and no evidence of cellulitis. Neuro: Awake and alert, GCS 15, oriented to person, place, time, and situation. Cranial nerves II-XII grossly intact. Motor strength 5/5 in all extremities. Sensory grossly intact. Cerebellar exam normal. Normal gait. Psych: Awake, alert, with orientation to person, place and time. Behavior, mood, and affect are within normal limits. 09:36 Musculoskeletal/extremity: Right lower extremity swollen from just proximal to the knee distally with 2+ pitting edema. Swelling is greater around the knee than the lower extremity distally to it. Pulses are normal. Patient is ambulatory though is using crutches due to pain in the knee. Patient is afebrile.. Vital Signs: 08:51 BP 158 / 92; Pulse 90; Resp 18; Temp 97.6; Pulse Ox 100% ; Weight 112.49 kg; Height 5 iw ft. 10 in. ; Pain 10/10; 08:51 Body Mass Index 35.58 (112.49 kg, 177.8 cm) iw 08:51 Pain Scale: Adult iw MDM: 09:03 Patient medically screened. sp3 09:37 Data reviewed: vital signs, nurses notes, radiologic studies. ED course: Right knee sp3 swelling and right lower extremity swelling. Differential diagnosis includes inflammatory arthritis versus DVT related. I am not highly suspicious for arterial pathology, septic joint, gout, fracture or any other concerning symptoms. Will obtain ultrasound of the right lower extremity and have patient follow back up with PCP if negative.. 10:57 ED course: Ultrasound is negative. We will discharge patient home on an sp3 anti-inflammatory and follow-up with PCP along with leg elevation instructions.. 10/16 09:06 Order name: US Extremity Venous Unilateral Ltd; Complete Time: 10:57 sp3 Administered Medications: No medications were administered Disposition Summary: 10/17/23 10:58 Discharge Ordered Notes: Location: Home sp3 Condition: Stable sp3 Diagnosis - Knee swelling, unilateral peripheral edema sp3 Followup: sp3 - With: Private Physician - When: Upon discharge from the Emergency Department - Reason: Continuance of care Discharge Instructions: - Discharge Summary Sheet sp3 - Knee Effusion sp3 Forms: - Medication Reconciliation Form sp3 - Antibiotic Education sp3 - Prescription Opioid Use sp3 - Patient Portal Instructions sp3 - Leadership Thank You Letter sp3 Prescriptions: - Diclofenac Sodium 75 mg Oral tablet, delayed release (enteric coated) - take 1 tablet ORAL route 2 times per day; 15 tablet; Refills: 0, Product sp3 Selection Permitted Signatures: Dispatcher [employer] Avril Acevedo RN RN iw Patel, Setul, MD MD sp3
[2023-10-17 11:36] VITALS: BP 158/92; TEMP 97.6; O2SAT 100
== END 2023-10-17 11:17 | disposition home or self-care (01) ==
LOC: ER 08:44
DX: R60.9 Edema, unspecified (principal)
CPT/HCPCS: 93971; 99283